=== PATIENT | female | born 1970 | race Two or more races ===

== ENCOUNTER 2022-07-18 15:30 | Emergency (ER) | payer SELFPAY ==
[2022-07-18 16:15] VITALS: BP 138/79; PULSE 93; RESP 18; TEMP 36.7; O2SAT 97; BMI 31.6
--- NOTE | 2022-07-18 17:47 | ED.NURSE ---
Per registration pt left because she did not want to wait any longer. Per registration pt signed refusal of services.
== END 2022-07-18 19:36 | disposition left against medical advice (07) ==
PROVIDERS: PCP Family Medicine
DX: Z53.21 Procedure and treatment not carried out due to patient leaving prior to being seen by health care provider (principal)

== ENCOUNTER 2022-12-23 19:48 | Emergency (ER) | payer SELFPAY ==
[2022-12-23 19:57] VITALS: BP 176/103; PULSE 92; RESP 18; TEMP 36.9; O2SAT 99
--- NOTE | 2022-12-23 20:18 | ED.GENADULT ---
HPI - General Adult General Time Seen by Provider: 20:10 Date Seen: 12/23/22 Chief complaint: Eye Problems Stated complaint: Pain in eyes since yesterday,Left ear/cheek pain Time Seen by Provider: 12/23/22 20:02 Source: patient and press reader Mode of arrival: ambulatory Limitations: no limitations History of Present Illness HPI narrative: 52-year-old female who comes in today with left eye pain. She notes that she has had intermittent pain and swelling of the left upper eyelid for the last couple of months, shows me a picture from mid October when she had some swelling. Current episode started yesterday. She denies blurry vision or double vision, says the eye feels better in the darkness. Took ibuprofen for this yesterday. She notes that she has a broken upper molar on the left and is wondering if that is contributing to her symptoms, although she denies current jaw pain. She also notes some pain in the left [employer] and forehead area. She reports that approximately 4 months ago she ?lost vision? in her left eye. This lasted for about a week and got better on its own. She was not seen for that episode. 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 She wears glasses. Related Data Home Medications Medication Instructions Recorded Confirmed insulin regular human 100 unit/mL 20 - 30 unit subcut BID 07/18/22 07/18/22 injection solution (Humulin R Regular U-100 Insulin) lisinopril 10 mg tablet 10 mg PO DAILY 07/18/22 07/18/22 Allergies Allergy/AdvReac Type Severity Reaction Status Date / Time No Known Drug Allergies Allergy Verified 07/18/22 16:18 Review of Systems Status of ROS: Reports: 10 or more systems reviewed and unremarkable except as noted in History and below Exam Narrative: Exam Narrative: General: well nourished , NAD Head: Atraumatic and normocephalic ENT: External ears and external nose are normal Eyes: Left eye mild swelling of the upper lid with tenderness but no redness or discoloration. No stye or hordeolum. Mild diffuse conjunctival injection with no corneal clouding or ciliary flush. Pupil is reactive, external ocular movements are intact without pain. Tetracaine placed in the eye with minimal improvement of symptoms. Fluorescein stain with no dendritic lesions or corneal abrasions. Mild left temporal tenderness. Neck: Full spontaneous range of motion of the neck Lungs: No respiratory distress Musculoskeletal: No tenderness or deformity Neurologic: No gross focal neurologic deficits Skin: No rashes Psych: Mood and affect are appropriate Const: Vital Signs, click to edit/add: Vital Signs - 24 hr 12/23/22 19:57 Temperature 98.5 F Pulse Rate [Left P ulse Oximeter] 92 Respiratory Rate 18 Blood Pressure [Ri ght Upper Arm] 176/103 H Pulse Oximetry 99 Oxygen Delivery Me thod Room Air Course Course Hospital Course: Patient seen examined, prior records reviewed. Patient presents with left eye, forehead, temporal pain since yesterday. On exam, there is mild swelling of the upper lid but no nodule on eyelid eversion to suggest stye or hordeolum. No foreign body or corneal abrasion noted on fluorescein staining. No ciliary flush, pupil is reactive with no corneal clouding, no nausea vomiting, minimal pain, and pain is better with lights turned off, acute angle closure glaucoma unlikely. Consider also migraine headache although this would not typically be expected to cause eyelid swelling. Temporal arteritis is possible but again, would not typically be expected to cause swelling of the eyelid. ESR is ordered. Reevaluation(s) Reevaluation #1: Sed rate is normal, clinically temporal arteries are unlikely and with normal sed rate, diagnosis is excluded. Unclear source of symptoms today. The upper lip on left slightly swollen but no redness, induration, or warmth to suggest retrobulbar or periorbital cellulitis, no pain with external ocular movements. Pupil is reactive with no corneal clouding, ciliary flush, or worsening with darker dim room, no severe headache, nausea, or vomiting, acute angle closure glaucoma is unlikely. No history of trauma and no abnormality on fluorescence staining to suggest corneal abrasion, viral conjunctivitis. Time: 21:36 Vital Signs Vital signs: Initial Vital Signs Temperature 98.5 F 12/23/22 19:57 Temperature Source Temporal Artery Scan 12/23/22 19:57 Pulse Rate 92 12/23/22 19:57 Pulse Rhythm 12/23/22 19:57 Respiratory Rate 18 12/23/22 19:57 Blood Pressure 176/103 H 12/23/22 19:57 Blood Pressure Mean 127 12/23/22 19:57 Blood Pressure Position Sitting 12/23/22 19:57 Pulse Oximetry 99 12/23/22 19:57 Oxygen Delivery Method 12/23/22 19:57 Vital Signs Temperature 98.5 F 12/23/22 19:57 Pulse Rate 92 12/23/22 19:57 Respiratory Rate 18 12/23/22 19:57 Blood Pressure 176/103 H 12/23/22 19:57 Pulse Oximetry 99 12/23/22 19:57 Oxygen Delivery Method 12/23/22 19:57 Temperature 98.5 F 12/23/22 19:57 Pulse Rate 92 12/23/22 19:57 Respiratory Rate 18 12/23/22 19:57 Blood Pressure 176/103 H 12/23/22 19:57 Pulse Oximetry 99 12/23/22 19:57 Oxygen Delivery Method 12/23/22 19:57 Medical Decision Making Medical Records Medical records reviewed: Yes I reviewed the patient's medical records Lab Data Lab results reviewed: Yes I reviewed the patient's lab results Labs: Lab Results 12/23/22 Range/Units 20:38 ESR 17 (2-20) mm/hr Discharge Plan Discharge Clinical Impression: Blepharitis, Photophobia of left eye Patient Disposition: Home, Self-Care Condition: Stable Instructions: Blepharitis (ED), Photophobia (ED) Additional Instructions: Take Tylenol and ibuprofen as needed for pain. Use cool packs on the eye 10-15 minutes at a time every 2-3 hours while awake. Use antibiotic ointment 3 times a day for the next 5 days. Follow-up in the eye clinic this week Activity Level: No Restrictions Discharge Diet: Regular Prescriptions: No Action lisinopril 10 mg tablet 10 mg PO DAILY Label Comments: TAKE ONE TABLET BY MOUTH ONCE DAILY Humulin R Regular U-100 Insuln 100 unit/mL solution 20 - 30 unit subcut BID Follow Up/Referrals: Rizwan Jolly DO [Referring] - Quinton Alvarez OD [Referring] - Baljinder Zarco [Referring] - Ryley Domingo DO [Referring] - Snehal Mendoza MD [Primary Care Provider] - Stand Alone Forms: MyHealth Info Instructions
[2022-12-23 21:31] LABS: Erythrocyte SedimentationRate* 17 mm/hr (2-20)
== END 2022-12-23 22:00 | disposition home or self-care (01) ==
PROVIDERS: Emergency Provider Family Medicine; PCP Family Medicine
DX: H01.006 Unspecified blepharitis left eye, unspecified eyelid (principal); H53.142 Visual discomfort, left eye
CPT/HCPCS: 36415; 85651; 99283; A9270

== ENCOUNTER 2024-05-21 16:35 | Outpatient (CLI) | payer BC, SELFPAY ==
--- OUTSIDE RECORDS SUMMARY | 2024-05-21 16:37 | XMS_ITS | Clinical Summary ---
Author Organization [facility] Address [place], [place] [address] Care Team Providers Care Relays Draftsperson Name Role Phone Darryl Richmond MD Unavailable Pcp, No Primary Care Provider Unavailabl e Allergies Active Allergy Reactions Criticality Noted Date Comments Ciprofloxacin Headache,Other - Ge cribe In Comment Field 12/08/2019 Leg pain Metformin Headache Low 03/05/2014 Medications Medication Sig Dispensed Refills Start Date End Date Status blood-glucose meter Dispense glucose meter, test strips and lancets covered by the patient insurance. Test 3 times per day. 1 Device 0 02/05/2013 Active Blood-Glucose Meter (CONTOUR NEXT USB METER) Dispense glucose meter, test strips and lancets covered by the patient insurance. Test 4 times per day. 1 Device prn 11/06/2013 Active Insulin Cullen, Disposable, (NOVOFINE 32) 32 x 1/4 Indications:Type II or unspecified type diabetes mellitus without mention of complication, not stated as uncontrolled For administering insulin at home. 100 Each 3 02/24/2015 Active blood sugar diagnostic (CONTOUR NEXT STRIPS) stripIndications:T ype II or unspecified type diabetes mellitus without mention of complication, not stated as uncontrolled Dispense test strips covered by the patient insurance. Test 4 times per day. 400 Each 2 02/24/2015 Active insulin nph-regular (NOVOLIN 70/30 U-100 INSULIN) 100 unit/mL (70-30) injection Inject 30-40 Units subcutaneous 2 times daily before meals. 10 mL 12/02/2019 Active metFORMIN (GLUCOPHAGE) 1,000 mg tabletIndications: Diabetes mellitus type 2, uncontrolled, with complications Take 1 tablet by mouth 2 times daily with meals. 60 tablet 1 06/30/2019 05/01/20 24 Discontinue d(*Med complete/Re gimen complete/[place] of care change) fluconazole (DIFLUCAN) 150 mg tabletIndications: Vaginal itching Take one tablet on day 1 and 1 tablet when finished with antibiotics. 1 tablet 07/17/2019 05/01/20 24 Discontinue d(*Med complete/Re gimen complete/[place] of care change) fluconazole (DIFLUCAN) 150 mg tabletIndications: Complicated UTI (urinary tract infection) Take 150mg x 1. May repeat in 2 wk if needed 2 tablet 12/02/2019 05/01/20 24 Discontinue d(*Med complete/Re gimen complete/[place] of care change) nirmatrelvir-riton avir 300-100mg (PAXLOVID, EUA,) tabletIndications: COVID-19 virus infection Take 2 nirmatrelvir 150 mg pink-oval tablets and 1 ritonavir 100 mg white-oval tablet together twice daily for 5 days. Date of Symptom Onset: 04/28/24; Cr 0.8 on 05/01/24 30 Tablet 05/01/2024 05/06/20 24 Active Problems Problem Noted Date Diagnosed Date Diabetic nephropathy 08/13/2014 Depression 08/13/2014 Delivery by elective section 04/10/2014 Status post repeat low transverse secti on 04/10/2014 History of delivery x2, currently pregn ant 09/18/2013 AMA (advanced maternal age) multigravida 35+ Supervision of other high-risk (V23.89) 09/12/2013 Overview: NEXT VISIT ALERTS :Needs work excuse note for every visit Did she start vitamin D? Needs UC q 4-6 wks. Last 10/27/13 LAST GROWTH: 10-27-13 @ 15w3d Level II ultrasound at 20 weeks gestation, Growth ultrasound with dopplers at 28 and 34 weeks gestation PRIMARY DIAGNOSIS: Poorly controlled Type 2 DM, AMA, previous x2, (LST) hx macrosomia. Kidney stones, pyelonephritis, hematuria/proteinuria, left renal atrophy TESTING PLANS: ZAINAB: [facility] 09/18/2013, op report from 1994, 2003 (LST X 2) scanned 09/30/13 REFERRING PHYSICIAN: Dr Snehal Mendoza [place] SPECIALISTS: PDC MANAGER OF TIRES SALES: CARE COORDINATION: CONSULTS: PROCEDURES: MEDS: Vitamin D plans: drawn 09/18/2013 = 14.1. 09/30/2013: Encouraged to warehouse order picker OTC, if cost prohibitive will waiting to start Vitamin D when she has insurance (and then needs prescription). Needs recheck 8 wks after starting Pertinent/Abnormal LABS: Blood type: O positive Last pap: 09/18/2013=NIL Hgb A1C 08/19/13 = 11.2 Needs UC q 4-6 wks. Last 10/27/13 24 hour urine collection 10/27/13 = 168. Repeat 3rd trimester ACTIVITY RESTRICTIONS: NURSING: Tdap vaccine: GIVE BETWEEN 27 AND 36 WEEKS Date given: Flu vaccine given: declined 09/18/2013 Non BMI 29.1 Optimal wt gain 15-25 lb Plan for Gestational Diabetes screening: NA, Type 2 GENETICS: Date: 09/30/13 Counselor: BEAR Plan: Normal [place] screen DELIVERY PLANS: Unsure-Planning/Not planning Tubal Ligation Is Medical assistance Repeat PLAN OF CARE: 10/27/13 JN Continue BS control with diabetes clinic, next visit 1/3 with OB check Check baseline results of 24 hour protein and patient will get an A1C and eye exam Consider baseline EKG and HELLP labs Return 4 weeks for Ob check and targeted US Repeat growth at about 28 weeks Start kick counts and testing twice weekly at 28 weeks PLAN: Return Appointments: OB Care - Every 4 weeks until 28 weeks., Every 2 weeks from 28 to 36 weeks., Every week from 36 weeks until delivery., Every 2 weeks. and Weekly UC next visit and every 4-6 weeks Ultrasound/Testing - Level II ultrasound at 20 weeks gestation, complete U/S at ~ 16 W due to markedly elevated blood sugars at conception and first trimester (HgA1C 11.7, then 8.8) - Growth ultrasound with dopplers at 28 and 34 weeks gestation - Initiate testing at 28 weeks gestation weekly, then twice weekly at 32 Labs -UC every 4-6 weeks -24 hour urine collection now and repeat 3rd trimester Meds - vitamins - Iron supplementation Screening Genetic counseling today, leaning toward [id number] NICU/Surgery consult Not at this time Delivery Plan repeat C/S (2 previous) Juany A Macon, MD .................... 09/30/2013 9:27 AM Renal calculus, left 08/25/2011 Hydronephrosis 08/25/2011 Pyelonephritis 08/25/2011 Pyuria 08/11/2011 HTN (hypertension) 02/09/2009 Overview: Updated by system to replace inactive record Pure hyperglyceridemia 02/09/2009 Adjustment disorder with depressed mood 02/10/20 09 Type II or unspecified type diabetes mellitus without mention of complication, not stated as uncontrolled 03/27/2007 Overview: and Diabetes Clinic: See's Dr Uriostegui at [facility], her last visit 11/06/13--- Never rescheduled after several attempts. Regular astigmatism 03/27/2007 Myopia 03/27/2007 Encounters Date Type Department Care Team Description 05/01/2024 3:45 PM CDT Orders Only [facility] [address] [place] [address] Lab, [place] [facility] 05/01/2024 2:45 PM CDT Telemedicine [facility] [address] [place] [address] Mary Fry MD Covid-19 Positive Result 05/01/2024 Travel 03/17/2024 8:00 AM CDT Ancillary Procedure [facility] [place] [facility] [address] [place] [address] 03/17/2024 Travel from Last 3 Months Immunizations Name Administration Dates Next Due Influenza, IIV3 (Age 6-35 mos) 09/04/2017 Influenza, IIV3 (Age >=3 years) 10/19/2008,09/05 Tdap 02/09/2014,11/05/2005 02/10/2024 Family History Medical History Relation Name Comments Diabetes Brother Good Health Daughter Heart Disease Father Hypertension Maternal Grandmother Hypertension Mother Diabetes Paternal Grandmother Good Health Son Relation Name Status Comments Brother Daughter Father (Age 60) [place] Maternal Grandmother Mother (Age 55) [place] Paternal Grandmother Son Social History Tobacco Use Types Packs/Day Years Used Date Smoking Tobacco: Former Cigarettes 0 07/05/1998 - 07/05/2000 Smokeless Tobacco: Never Tobacco Cessation:Counseling Given: Yes Alcohol Use Standard Drinks/Week Comments Not Currently 0 (1 standard drink = 0.6 oz pur e alcohol) PHQ-2 Answer Date Recorded PHQ-2 Score 2 06/30/2019 Social Connections Answer Date Recorded Frequency of Communication with Friends and Fami ly Not on file 05/01/2024 Financial Resource Strain Answer Date R ecorded Difficulty of Paying Living Expenses Not on file 11/01/2021 Difficulty of Paying Living Expenses Not on file 11/01/2021 Sex and Gender Information Value Date Recorded Sex Assigned at Not on file Gender Identity Not on file Sexual Orientation Not on file Obstetrics History Para Term AB IAB SAB Ectopic Multiple Livin g Live Births 5 2 2 0 2 0 2 0 0 2 2 Date Outcome GA Total Labor Labor/2nd/3rd Weight Sex Type Anes PTL Skyla A1 A5 Name Clin Comments:System Genera maury. Please review and update details. SAB SAB 995 Term 41w 0d 3.88 kg (8 lb 9 oz) M CS-Un spec Livin g Thuan Delivery Location:[facility] Comments:Failed IOL, P P infection 004 Term 39w 0d 4.25 kg (9 lb 6 oz) F CS-Un spec Livin g Mely Delivery Location:[facility] Comments:elective repe at Last Filed Vital Signs Vital Sign Reading Time Taken Comments Blood Pressure 150/84 12/02/2019 9:41 AM TUFTING CREELER Pulse 65 12/02/2019 9:41 AM TUFTING CREELER Temperature 36.8 ??C (98.2 ??F) 12/02/2019 9:41 AM CS T Respiratory Rate 16 04/13/2014 8:57 AM CDT Oxygen Saturation 100% 12/02/2019 9:41 AM TUFTING CREELER Inhaled Oxygen Concentration - - Weight 83.9 kg (185 lb) 12/02/2019 9:41 AM TUFTING CREELER Height 165.1 cm (5' 5) 02/17/2016 8:38 AM CDT Body Mass Index 30.79 02/17/2016 8:38 AM CDT Plan of Treatment Health Maintenance Due Date Last Done Comments Pneumococcal series for age 6-64 (1 of 2 - PCV) 1977 Hepatitis C screening for ag e 18-79 1989 Hepatitis B series for Diabe heri (1 of 3 - 19+ 3-dose series) 1990 Colonoscopy through age 75 2016 BMI (ht and wt on same day) for age 18+ 02/16/2017 02/17/2016 Mammogram for age 45-75 02/16/2017 02/17/2016, 02/22 Pap test for age 21-65 02/16/2019 6, 09/18/2013, 07/05/2007 Lipids for age 45-75 02/25/2020 02/24/2015, 08/13/2014, 02/05/2013, Additional history exists Depression screening for age 12+ 06/30/2020 06/30/2019, 06/30/2019, 02/17/2016, Additional history exists Zoster (shingles) series for age 50+ (1 of 2) 2021 COVID-19 vaccine series (2022- season) 2023 07/01/2021, 01/28/2021 Tetanus booster 02/10/2024 02/09/2014, 11/2005 (Completed outside of [facility]), 11/05/2005 Influenza for age 50-64 07/06/2024 10/19/2008, 09/05 HIV for age 15-65 Completed 08/19/2013 Tdap Completed 02/09/2014, 11/05/2005 Medical Devices Implanted Type Area Civil Engineering Designer Device Identifier Shelf Expiration Date Model / Serial / Lot Stent Prcflx [id number] Hydpls - [id number] Implanted:Qty: 1 on 08/31/2011 at [facility] Left: Ureter [facility] [id number] / / [id number] Stent Prcflx [id number] Hydpls - [id number] Implanted:Qty: 1 on 09/21/2011 at [facility] Left: Ureter [facility] 06/05/2014 [id number]# / / [id number] Explanted Type Area Civil Engineering Designer Device Identifier Shelf Expiration Date Model / Serial / Lot Stent Prcflx [id number] Hydpls - [id number] Implanted:Kp Alanis MD (Quantity not on file) Explanted:Qty: 1 on 08/31/2011 at [facility] Left: Ureter [facility] [id number] / / [id number] Procedures Procedure Name Priority Date/Time Associated Diagnosis Comments CREATININE,ISTAT Routine 05/01/2024 4:02 PM CDT COVID-19 virus infection ECHO TTE COMPLETE WO CONTRAST Routine 03/17/2024 9:33 AM CDT Palpitations XR FFDM MAMMO SCREENING BILATERAL SSP (IA) Routine 02/17/2016 9:12 AM CDT Visit for screening mammogram PROPERTY MANAGER THIN PREP PAP SCREEN IMAGED Routine 02/17/2016 9:03 AM CDT Screening for malignant neoplasm of cervix LIPID PANEL W REFLEX MEASURED LDL Routine 02/24/2015 2:27 PM CDT Pure hyperglyceridemia ANTI HIV 1/2 Routine 08/19/2013 10:07 AM CDT from Last 3 Months or Most Recently Relevant to Health Maintenance Results * (ABNORMAL) CREATININE,ISTAT (05/01/2024 4:02 PM CDT) CREATININE, POCT 0.80 0.57 - 1.11 mg/dL 05/01/2024 4:08 PM CDT [facility] Comment:Caution: Patients ta clarissa Hydroxyurea have falsely increased iStat Creatinine results. Verify creatinine results ordering a Creatinine (20958.2) eGFR 89(L) >90 mL/min/1.7 3m2 05/01/2024 4:08 PM CDT [facility] Comment:As of 2022, eG FR is calculated by the CKD-EPI creatinine equation without race adjustment. eGFR can be influenced by muscle mass, exercise, and diet. The reported eGFR is an estimation only and is only applicable if the renal function is stable. Blood BLOOD SPECIMEN / Unknown 05/01/2024 4:02 PM CDT 05/01/2024 4:07 PM CDT Mary Fry MD CHEMISTRY PEDRITO [facility] [place] [address], * ECHO TTE COMPLETE WO CONTRAST (03/17/2024 9:33 AM CDT) AORTIC VALVE MEAN PG 4 mmHg EJECTION FRACTION 59 % LVEDD 4.2 cm EJECTION FRACTION 55 - 60% Anatomical Region Laterality Modality Ultrasound 03/17/2024 8:21 AM CDT Narrative 03/17/2024 10:37 AM CDT ECHOCARDIOGRAM MARIE BOWDEN ?Accession#: ?? [id number] : ?1970 53 years Study Date: ?? 03/17/2024 8:21:36 AM Gender: F ? BP: ? 117/72 mmHg Height: 165.00 cm ? BSA: ?1.91 m? ? ? Weight: 84.00 kg ?Tech: ? MSR ?Referring MD: Site: ? [facility] Reading Location: Mobile OP Patient Location: Outpatient. Procedure: 2D, Color Doppler and Spectral Doppler. Indication for study: Palpitations Cardiac Rhythm: Regular.Study quality: Final Impressions: 1. Normal LV size, normal wall thickness, normal global systolic function with an estimated EF of 55 - 60%. 2. No significant valve disease detected. 3. No pericardial effusion. Chamber Sizes and Function Normal left ventricular size, normal wall thickness, normal global systolic function with an estimated EF of 55 - 60%. Left atrial size is normal. Right ventricular cavity size is normal, global systolic RV function is normal. The right atrium is normal. The pulmonary artery is of normal size and origin. The sinus of Valsalva is normal sized. The ascending aorta is normal sized. Valves, RV Pressures and Diastolic Function The aortic valve is trileaflet, no stenosis and trivial regurgitation. The mitral valve is normal in structure, trace mitral regurgitation. Normal diastolic function for age. The tricuspid valve is normal in structure. Tricuspid regurgitation is trace regurgitation. The pulmonic valve is not well visualized. No pulmonary regurgitation. Masses, Effusion, Shunts There is no pericardial effusion. The inferior vena cava is normal sized, respiratory size variation greater than 50%. No left to right shunting was detected by limited color flow Doppler interrogation of the interatrial septum. MEASUREMENTS AND CALCULATIONS 2-D Measurements and LV Function: LVID (d) 4.2 cm LV FS% (2D) ?? 38 % LVID (s) 2.6 cm LVOT diameter 2.2 cm IVS (d) ??0.9 cm HR ?69 bpm LVPW (d) 1.1 cm LA Vol index ??24 ml/m2 Ao Sinus 3.0 cm RV Max 4C (d) 3.0 cm Asc Ao ?? 3.3 cm Diastology: Mitral ?Tissue Doppler E Peak 0.8 m/s ??e', Septum ? 0.07 m/s A Peak 0.9 m/s ??e', Lateral ?0.10 m/s E/A ?0.9 ?E/e' Average ?? 9.80 DT ? 169 msec Aortic Valve: Vmax ? 1.3 m/s ??CHELSEA (V) ?? 2.53 cm? ? ? VTI ?0.30 m ?? CHELSEA (I) ?? 2.74 cm? ? ? LVOT V max 0.8 m/s ??Max PG ?7 mmHg LVOT VTI ?? 0.21 m ?? Mean PG ?? 4 mmHg SV ? 82 ml ?Dim Index 0.71 SV index ?? 43 ml/m? ? ? CO ?5.6 l/min ?CI ?2.9 l/min/m? ? ? Mitral Valve: MVA ?4.5 cm? ? ? MV P 1/2 49 msec Tricuspid Valve and estimated PA pressures: TAPSE 2.3 cm . This study was interpreted by an [facility] accredited facility. CC: HIM (med records) [facility]. ??Final ?? Procedure Note Manuel Robison MD - 03/17/2024 ECHOCARDIOGRAM MARIE BOWDEN : 1970 53 years Study Date: 03/17/2024 8:21:36 AM Gender: F BP: 117/72 mmHg Height: 165.00 cm BSA: 1.91 m? ? ? Weight: 84.00 kg Tech: MSR Referring MD: Site: [facility] Reading Location: Mobile OP Patient Location: Outpatient. Procedure: 2D, Color Doppler and Spectral Doppler. Indication for study: Palpitations Cardiac Rhythm: Regular.Study quality: Final Impressions: 1. Normal LV size, normal wall thickness, normal global systolic functionwith an estimated EF of 55 - 60%. 2. No significant valve disease detected. 3. No pericardial effusion. Chamber Sizes and Function Normal left ventricular size, normal wall thickness, normal globalsystolic function with an estimated EF of 55 - 60%. Left atrial size isnormal. Right ventricular cavity size is normal, global systolic RVfunction is normal. The right atrium is normal. The pulmonary artery is ofnormal size and origin. The sinus of Valsalva is normal sized. Theascending aorta is normal sized. Valves, RV Pressures and Diastolic Function The aortic valve is trileaflet, no stenosis and trivial regurgitation. Themitral valve is normal in structure, trace mitral regurgitation. Normaldiastolic function for age. The tricuspid valve is normal in structure.Tricuspid regurgitation is trace regurgitation. The pulmonic valve is notwell visualized. No pulmonary regurgitation. Masses, Effusion, Shunts There is no pericardial effusion. The inferior vena cava is normal sized,respiratory size variation greater than 50%. No left to right shunting wasdetected by limited color flow Doppler interrogation of the interatrialseptum. MEASUREMENTS AND CALCULATIONS 2-D Measurements and LV Function: LVID (d) 4.2 cm LV FS% (2D) 38 % LVID (s) 2.6 cm LVOT diameter 2.2 cm IVS (d) 0.9 cm HR 69 bpm LVPW (d) 1.1 cm LA Vol index 24 ml/m2 Ao Sinus 3.0 cm RV Max 4C (d) 3.0 cm Asc Ao 3.3 cm Diastology: Mitral Tissue Doppler E Peak 0.8 m/s e', Septum 0.07 m/s A Peak 0.9 m/s e', Lateral 0.10 m/s E/A 0.9 E/e' Average 9.80 DT 169 msec Aortic Valve: Vmax 1.3 m/s CHELSEA (V) 2.53 cm? ? ? VTI 0.30 m CHELSEA (I) 2.74 cm? ? ? LVOT V max 0.8 m/s Max PG 7 mmHg LVOT VTI 0.21 m Mean PG 4 mmHg SV 82 ml Dim Index 0.71 SV index 43 ml/m? ? ? CO 5.6 l/min CI 2.9 l/min/m? ? ? Mitral Valve: MVA 4.5 cm? ? ? MV P 1/2 49 msec Tricuspid Valve and estimated PA pressures: TAPSE 2.3 cm . This study was interpreted by an [facility] accredited facility. CC: [facility] ([facility]) [facility]. Final Elena Dalton TYRE RETREADER ECHO ORD * XR FFDM MAMMO SCREENING BILATERAL SSP (02/17/2016 9:12 AM CDT) Anatomical Region Laterality Modality BREASTS, Breast Left, Breast Right Bilateral Mammography Impressions 02/17/2016 12:16 PM CDT ??There is no radiographic evidence for malignancy. ??Recommend annual mammograms. A lay language report of this examination will be provided to the patient. MAMMOGRAM ASSESSMENT: ??ACR 2 Benign Narrative 02/17/2016 12:16 PM CDT XR FFDM MAMMO SCREENING BILATERAL SSP [G0202.6] CLINICAL HISTORY: ??This is an asymptomatic 45 y.o. patient. INDICATION FOR EXAM: Mammogram Screening. TECHNIQUE: CC & MLO views were obtained. ??This digital study was evaluated with the assistance of Computer-Aided Detection. COMPARISON FILMS: Yes 02/22/15 [facility] FINDINGS: ??Mammographically, the breast tissue has scattered fibroglandular densities. ??No suspicious masses or microcalcifications. ?? Benign appearing calcifications within both breasts. Snehal Mendoza MD MAMMO * PROPERTY MANAGER THIN PREP PAP SCREEN IMAGED [[id number]] (02/17/2016 9:03 AM CDT) PROPERTY MANAGER CYTOLOGY See Anatomic Pathology case 02/18/2016 10:00 AM CDT [facility] Specimen (specimen) (Cervical) Non-Blood / Unknown 02/17/2016 9:03 AM CDT 02/17/2016 9:03 AM CDT Snehal Mendoza MD PATHOLOGY/[facility]Y [facility] [address] [place] [address], * (ABNORMAL) LIPID PANEL W REFLEX MEASURED LDL (02/24/2015 2:27 PM CDT) Pathologist [facility] CHOLESTEROL,TOTAL 240(H) 100 - 199 mg/dL 02/24/2015 3:12 PM CDT [facility] TRIGLYCERIDES 298(H) <150 mg/dL 02/24/2015 3:12 PM CDT [facility] HDL CHOLESTEROL 56 >40 mg/dL 5 3:12 PM CDT [facility] NON-HDL CHOLESTEROL 184(H) <145 mg/dl 02/24/2015 3:12 PM CDT [facility] CHOL/HDL RATIO 4.29 <4.50 02/24/2015 3:12 PM CDT [facility] LDL CHOLESTEROL 124 <=130 mg/dL 02/24/2015 3:12 PM CDT [facility] PATIENT STATUS NON-FASTI NG 02/24/2015 3:12 PM CDT [facility] Blood specimen (specimen) BLOOD SPECIMEN / Unknown Venipuncture / Unknown 02/24/2015 2:27 PM CDT 02/24/2015 2:29 PM CDT Naina HUNT CHEMISTRY [facility] [address] [place] [address], * ANTI HIV 1/2 (08/19/2013 10:07 AM CDT) ANTI HIV 1/2 Non-reacti ve [facility] Blood specimen (specimen) BLOOD SPECIMEN / Unknown 08/19/2013 10:07 AM CDT 08/19/2013 9:53 AM CDT Snehal Mendoza MD SEND OUTS [facility] INTERNAL ZIP [id number] [place] [id number] from Last 3 Months or Most Recently Relevant to Health Maintenance Advance Directives * Full Code (Latest Code Status on File) Date Activated Date Inactivated Comments 04/10/2014 5:55 AM 04/13/2014 2:21 PM * Full Code Date Activated Date Inactivated Comments 09/21/2011 6:45 PM 09/21/2011 10:25 PM * Full Code Date Activated Date Inactivated Comments 09/15/2011 4:22 AM 09/16/2011 2:58 AM * Full Code Date Activated Date Inactivated Comments 08/31/2011 10:01 AM 08/31/2011 5:22 PM Care Teams Relays Draftsperson Relationship Specialty Start Date End Date Pcp, No . PCP - General 11/07/19 Darryl Richmond MD Urology Surgery - Urology 04/29/13
== END 2024-05-21 16:36 | disposition home or self-care (01) ==
PROVIDERS: PCP Family Medicine; Visit Provider Internal Medicine
DX: E78.5 Hyperlipidemia, unspecified (principal); I10 Essential (primary) hypertension; E11.9 Type 2 diabetes mellitus without complications; Z13.9 Encounter for screening, unspecified
CPT/HCPCS: 80053; 80061

== ENCOUNTER 2024-06-03 15:39 | Outpatient (CLI) | payer BC, SELFPAY ==
[2024-06-03 15:54] LABS: Clue Cells <20% Clue Cells Seen (None Seen); Trichomonas No Trichomonas Seen (None Seen); Yeast No Yeast Seen (None Seen)
--- OUTSIDE RECORDS SUMMARY | 2024-06-03 15:55 | XMS_ITS | Clinical Summary ---
Author Organization [facility] Address [place], [place] [address] Care Team Providers Care Spragger Name Role Phone Darryl Richmond MD Unavailable [...] day. 1 Device prn 11/06/2013 Active Insulin [place]man, Disposable, (NOVOFINE 32) 32 x 1/4 Indications:Type [...] daily before meals. 10 mL 12/02/2019 Active nirmatrelvir-riton avir 300-100mg (PAXLOVID, EUA,) tabletIndications: COVID-19 virus infection Take 2 nirmatrelvir 150 mg pink-oval tablets and 1 ritonavir 100 mg white-oval tablet together twice daily for 5 days. Date of Symptom Onset: 04/28/24; Cr 0.8 on 05/01/24 30 Tablet 05/01/2024 4 Active Problems Problem Noted Date Diagnosed Date [...] hematuria/proteinuria, left renal atrophy TESTING PLANS: ZAINAB: [facility] 09/18/2013, op report from 2003 (LST X 2) scanned 09/30/13 REFERRING PHYSICIAN: Dr Snehal Mendoza, [place] SPECIALISTS: PDC LOSS PREVENTION OFFICER: CARE COORDINATION: CONSULTS: PROCEDURES: MEDS: Vitamin D plans: drawn 09/18/2013 = 14.1. 09/30/2013: Encouraged to cotton picker OTC, if cost prohibitive will waiting [...] GENETICS: Date: 09/30/13 Counselor: BEAR Plan: Normal [place] screen DELIVERY PLANS: Unsure-Planning/Not planning Tubal Ligation Is Medical assistance Repeat PLAN OF CARE: 10/27/13 JN Continue BS control with diabetes clinic, next visit 11/07 with OB check Check baseline results of [...] supplementation Screening Genetic counseling today, leaning toward [id number] NICU/Surgery consult Not at this time Delivery Plan repeat C/S (2 previous) Juany Zamora MD .................... 09/30/2013 9:27 AM Renal calculus, left 08/25/2011 Hydronephrosis 08/25/2011 Pyelonephritis 08/25/2011 Pyuria 08/11/2011 HTN (hypertension) 02/09/2009 Overview: Updated by system to replace inactive record Pure hyperglyceridemia 02/09/2009 Adjustment disorder with depressed mood 02/10/20 09 Type II or unspecified type diabetes mellitus without mention of complication, not stated as uncontrolled 03/27/2007 Overview: and Diabetes Clinic: See's Dr Uriostegui at [facility], her last visit 11/06/13--- Never rescheduled after several attempts. Regular astigmatism 03/27/2007 Myopia 03/27/2007 Encounters Date Type Department Care Team Description 05/21/2024 Orders Only [facility] Scanner 1 scan: (1-Ord) EMILIO, XR SHOULDER LT MIN 2V, 05/21/2024 05/01/2024 3:45 PM CDT Orders Only [facility] [address] [place] [address] Lab, [place] Lab 05/01/2024 2:45 PM CDT Telemedicine [facility] [address] [place] [address] Mary Fry MD Covid-19 Positive Result 05/01/2024 Travel 03/17/2024 8:00 AM CDT Ancillary Procedure [facility] at [facility] & [address] [address] 03/17/2024 Travel from Last 3 Months Immunizations Name Administration Dates Next Due Influenza, IIV3 (Age 6-35 mos) 09/04/2017 Influenza, IIV3 (Age >=3 years) 10/19/2008,09/05 Tdap 02/09/2014,11/05/2005 02/10/2024 Family History Medical History Relation Name Comments Diabetes Brother Good Health Daughter Heart Disease Father Hypertension Maternal Grandmother Hypertension Mother Diabetes Paternal Grandmother Good Health Son Relation Name Status Comments Brother Daughter Father (Age 60) [place] Maternal Grandmother Mother (Age 55) [place] Paternal Grandmother Son Social History Tobacco Use [...] M CS-Un spec Livin g Thuan Delivery Location:[place] Comments:Failed IOL, P P infection 004 Term 39w 0d 4.25 kg (9 lb 6 oz) F CS-Un spec Livin g Mely Delivery Location:[place] Comments:elective repe at Last Filed Vital Signs Vital Sign Reading Time Taken Comments Blood Pressure 150/84 12/02/2019 9:41 AM BROKE HANDLER Pulse 65 12/02/2019 9:41 AM BROKE HANDLER Temperature 36.8 ??C (98.2 ??F) 12/02/2019 9:41 AM CS T Respiratory Rate 16 04/13/2014 8:57 AM CDT Oxygen Saturation 100% 12/02/2019 9:41 AM BROKE HANDLER Inhaled Oxygen Concentration - - Weight 83.9 kg (185 lb) 12/02/2019 9:41 AM BROKE HANDLER Height 165.1 cm (5' 5) 02/17/2016 8:38 [...] (1 of 2) 2021 COVID-19 vaccine series ( season) 2023 07/01/2021, 01/28/2021 Tetanus booster 02/10/2024 02/09/2014, 11/2005 (Completed outside of [facility]), 11/05/2005 Influenza for age 50-64 07/06/2024 10/19/2008, 09/05 HIV for age 15-65 Completed 08/19/2013 Tdap Completed 02/09/2014, 11/05/2005 Medical Devices Implanted Type Area Beautician Apprentice Device Identifier Shelf Expiration Date Model / Serial / Lot Stent Prcflx [id number] Hydpls - [id number] Implanted:Qty: 1 on 08/31/2011 at [facility] Left: Ureter [facility] [id number]# / / [id number] Stent Prcflx [id number] Hydpls - [id number] Implanted:Qty: 1 on 09/21/2011 at [facility] Left: Ureter [facility] 06/05/2014 [id number]# / / [id number] Explanted Type Area Beautician Apprentice Device Identifier Shelf Expiration Date Model / Serial / Lot Stent Prcflx [id number] Hydpls - [id number] Implanted:Kp Alanis MD (Quantity not on file) Explanted:Qty: 1 on 08/31/2011 at [facility] Left: Ureter [facility] [id number]# / / [id number] Procedures Procedure Name Priority Date/Time Associated Diagnosis Comments SCAN-RADIOLOGY REPORT 05/21/2024 12:00 AM CDT CREATININE,ISTAT Routine 05/01/2024 4:02 PM CDT COVID-19 virus infection ECHO TTE COMPLETE WO CONTRAST Routine 03/17/2024 9:33 AM CDT Palpitations XR FFDM MAMMO SCREENING BILATERAL SSP (IA) Routine 02/17/2016 9:12 AM CDT Visit for screening mammogram EGG FACTORY WORKER THIN PREP PAP SCREEN IMAGED Routine 02/17/2016 9:03 AM CDT Screening for malignant neoplasm of cervix LIPID PANEL W REFLEX MEASURED LDL Routine 02/24/2015 2:27 PM CDT Pure hyperglyceridemia ANTI HIV 1/2 Routine 08/19/2013 10:07 AM CDT from Last 3 Months or Most Recently Relevant to Health Maintenance Results * SCAN-RADIOLOGY REPORT (05/21/2024 12:00 AM CDT) Anatomical Region Laterality Modality Other Scanner OTHER * (ABNORMAL) CREATININE,ISTAT (05/01/2024 4:02 PM CDT) CREATININE, POCT 0.80 0.57 - 1.11 mg/dL 05/01/2024 4:08 PM CDT [facility] Comment:Caution: Patients ta clarissa Hydroxyurea have falsely increased iStat Creatinine results. Verify creatinine results ordering a Creatinine (56419.2) eGFR 89(L) >90 mL/min/1.7 3m2 05/01/2024 4:08 PM CDT [facility] Comment:As of 2022, eG FR is calculated by the CKD-EPI creatinine equation without race adjustment. eGFR can be influenced by muscle mass, exercise, and diet. The reported eGFR is an estimation only and is only applicable if the renal function is stable. Blood BLOOD SPECIMEN / Unknown 05/01/2024 4:02 PM CDT 05/01/2024 4:07 PM CDT Mary Fry MD CHEMISTRY [facility] [address] [place] [address], [place] [phone] * ECHO TTE COMPLETE WO CONTRAST (03/17/2024 9:33 AM CDT) AORTIC VALVE MEAN PG 4 mmHg EJECTION FRACTION 59 % LVEDD 4.2 cm EJECTION FRACTION 55 - 60% Anatomical Region Laterality Modality Ultrasound 03/17/2024 8:21 AM CDT Narrative 03/17/2024 10:37 AM CDT ECHOCARDIOGRAM MARIE BOWDEN ?Accession#: ?? [id number] : ?1970 53 years Study Date: ?? 03/17/2024 8:21:36 AM Gender: F ? BP: ? 117/72 mmHg Height: 165.00 cm ? BSA: ?1.91 m? ? ? Weight: 84.00 kg ?Tech: ? MSR ?Referring MD: Site: ? [facility] Reading Location: Mobile OP Patient Location: Outpatient. [...] . This study was interpreted by an [facility] accredited facility. CC: [facility]. ??Final ?? Procedure Note Manuel Robison MD - 03/17/2024 ECHOCARDIOGRAM MARIE BOWDEN : 1970 53 years Study Date: 03/17/2024 8:21:36 AM Gender: F BP: 117/72 mmHg Height: 165.00 cm BSA: 1.91 m? ? ? Weight: 84.00 kg Tech: KIMMY Referring MD: Site: [facility] Reading Location: Mobile OP Patient [...] interpreted by an [facility] accredited facility. CC: [facility] ([facility]. Final Elena Dalton AGRISCIENCE INSTRUCTOR ECHO ORD * XR FFDM MAMMO SCREENING [...] of Computer-Aided Detection. COMPARISON FILMS: Yes 02/22/15 [facility] FINDINGS: ??Mammographically, the breast tissue has scattered fibroglandular densities. ??No suspicious masses or microcalcifications. ?? Benign appearing calcifications within both breasts. Snehal Mendoza MD MAMMO * EGG FACTORY WORKER THIN PREP PAP SCREEN IMAGED [[id number]] (02/17/2016 9:03 AM CDT) EGG FACTORY WORKER CYTOLOGY See Anatomic Pathology case 02/18/2016 10:00 AM CDT [facility] Specimen (specimen) (Cervical) Non-Blood / Unknown 02/17/2016 9:03 AM CDT 02/17/2016 9:03 AM CDT Snehal Mendoza MD PATHOLOGY/CYTOLOGY [facility] [address] [place] [address], * (ABNORMAL) LIPID PANEL W REFLEX MEASURED LDL (02/24/2015 2:27 PM CDT) CHOLESTEROL,TOTAL 240(H) 100 - 199 mg/dL 02/24/2015 3:12 PM CDT [facility] TRIGLYCERIDES 298(H) <150 mg/dL 02/24/2015 3:12 PM CDT [facility] HDL CHOLESTEROL 56 >40 mg/dL 5 3:12 PM CDT [facility] NON-HDL CHOLESTEROL 184(H) <145 mg/dl 02/24/2015 3:12 PM CDT [facility] CHOL/HDL RATIO 4.29 <4.50 02/24/2015 3:12 PM CDT [facility] LDL CHOLESTEROL 124 <=130 mg/dL 02/24/2015 3:12 PM CDT [facility] PATIENT STATUS NON-FASTI NG 02/24/2015 3:12 PM CDT [facility] Blood specimen (specimen) BLOOD SPECIMEN / Unknown Venipuncture / Unknown 02/24/2015 2:27 PM CDT 02/24/2015 2:29 PM CDT Naina HUNT CHEMISTRY [facility] [address] [place] [address], * ANTI HIV 1/2 (08/19/2013 10:07 AM CDT) ANTI HIV 1/2 Non-reacti ve [facility] Blood specimen (specimen) BLOOD SPECIMEN / Unknown 08/19/2013 10:07 AM CDT 08/19/2013 9:53 AM CDT Snehal Mendoza MD SEND OUTS [facility] INTERNAL ZIP [phone] [place] [id number] from Last 3 Months or Most Recently [...] 10:01 AM 08/31/2011 5:22 PM Care Teams Spragger Relationship Specialty Start Date End Date Pcp, No . PCP - General 11/07/19 Darryl Richmond MD Urology Surgery - Urology 04/29/13
== END 2024-06-03 15:40 | disposition home or self-care (01) ==
PROVIDERS: PCP Internal Medicine; Visit Provider Obstetrics & Gynecology
DX: N89.8 Other specified noninflammatory disorders of vagina (principal); Z12.4 Encounter for screening for malignant neoplasm of cervix
CPT/HCPCS: 84443; 87210

== ENCOUNTER 2024-07-28 14:30 | Outpatient (RCR) | payer BC, SELFPAY ==
--- NOTE | 2024-06-18 12:51 | PT.OPEX ---
PT [place] [facility] Eval PT [facility] Outpatient Eval Start: 06/18/24 07:53 Freq: Status: Active Protocol: Document 06/18/24 07:53 ENM (Rec: 06/18/24 11:52 ENM [id number]) E-signed By Aure Chand, DPT Physical Therapy Outpatient Evaluation Insurance Information Recert Due Date 09/16/24 Insurance Name Medicaid,Blue Cross/Blue Shield Medical Diagnosis adhesive capsulitis of left shoulder primary osteoarthritis, left shoulder Treating Diagnosis left shoulder pain, right shoulder pain, decreased shoulder ROM, decreased shoulder strength Imaging Report Information Xray: mild spurring of the inferior glenohumeral joint with well-maintained joint spaces. Findings are consistent mild glenohumeral osteoarthritis. No fractures or acute osseous abnormalities Referring MD Sheikh Subjective Subjective Patient presents to PT for complaint of bilateral shoulder pains (L>R). The pains started in the left shoulder in August 2023 and the right shoulder 3 weeks ago . The shoulder seems to hurt all the time especially with sleep. She used to sleep on her side but has been trying to sleep on her back. She only uses ibuprofen which helps her sleep a little better. She endorses some numbness in her fingertips and pain in her thumb which started 4-6 months ago. MD thought her numbness was due to carpal tunnel. When it started: last year Describes it as: sharp Timing: stays the same but worse at night Location: L surrounding shoulder front to back, R same location but cracks as well Irritability: mod Severity: mod PMHx: diabetes Pain Comments at its worse: 7-8/10 on L, 3/ 10 R and stays at this amount easing: ibuprofen aggravating: cleaning, dressing Occupation Homemaker Objective Other/Pertinent Objective Cervical AROM: Flexion 35 extension 45 rot 59 B SB L 20 R 30 Shoulder AROM: Shoulder flexion: L 104 R 154 (passive L 110, R 162) Abduction: L 94 R 167 slight discomfort on R (passive L 80) IR: L lateral glute R T9 ( Passive L 50) ER: L mid skull R base of skull (Passive L 13) L all movements have pain Strength: Shoulder flexion: L 3+/5 R 4/5 Shoulder abduction: L 3+/5 R 4 /5 Shoulder IR0: L 4/5 R 4+/5 Shoulder ER0: L 4-/5 R 4/5 Palpation/joint mobility: Posterior glide of GHJ: decreased on L compared to R Inferior glide of GHJ: limited B no pain to palpation of shoulder musculature Special tests: randy compression -, does feel slight improvement in her numbness of the left hand with distraction cynthia - on R adam lennon - on R Assessment Assessment/Impression Patient is a 53 year old female presenting with chronic left shoulder and acute right shoulder pain. Their left shoulder pains have been present for over a year while her right shoulder pains started in the last couple of weeks. Pains are significantly impacting her sleep as well as functional ability. She has had minimal relief of symptoms with just use of ibuprofen. Upon assessment patients concordant pains brought on with shoulder ROM active and passive on both sides. She is not tender to palpation of shoulder musculature. Special testing for impingement is negative bilaterally. The left shoulder does have limitations in motion that are capsular in nature ABD(94 degs) <ER (13 degs) <IR ( lateral glute) which is consistent with frozen shoulder. Right shoulder pains are likely due to overuse from primarily relying on this side. Marie would greatly benefit from skilled PT to address impairments stated above in order to perform all functional mobility and self cares/ADLS without significant discomfort or difficulty. Primary Functional Limitations all movement of the left shoulder, sleeping Plan of Care Rehabilitation Potential Good Rehabilitation Potential Comments fair-good due to nature of condition as well as length of symptoms Physical Therapy Goals In 7-9 visits: 1. Patient will be IND with HEP and self management of symptoms 2. Patient will display an improvement in pain free left shoulder elevation to at least 120 degs for improved ability to perform self cares/ADLs 3. Patient will comfortably be able to lay on her right shoulder at night for improved sleep hygiene 4. Patient will improve global left shoulder strength to at least 4/5 for improved ability to perform household duties Coordination/Communication With Referral Source Treatment Plan/Direct Interventions Electrical Stimulation,Ice/ Cold/Vasopneumatic,Joint Mobilization,Manual Therapy, Neuromuscular Re-ed,Self-Care/ Home Management,Therapeutic Activities,Therapeutic Exercises Frequency/Duration 1x a week for 6 weeks, as needed with decreasing frequency 3-4 visits Patient Will Be Discharged From Therapy Completion of LTG(s), Independent w/HEP Evaluation Billing Untimed Code Treatment Minutes 33 Complexity Moderate Certification Information Initial Certification Date 06/18/24 Ending Certification Date 09/16/24 Provider Signature Required Yes Provider Signature Shows Agreement With POC & Medical Necessity Physician NPI Number Write NPI# Here Physician Comment/Change : Physician Signature & Date Requested Please Sign/Date Here
== END 2024-11-25 23:59 | disposition home or self-care (01) ==
PROVIDERS: PCP Internal Medicine; Visit Provider Orthopaedic Surgery
DX: M75.02 Adhesive capsulitis of left shoulder (principal); M19.012 Primary osteoarthritis, left shoulder; M25.512 Pain in left shoulder; M25.511 Pain in right shoulder; Z74.09 Other reduced mobility; R53.1 Weakness; Z51.89 Encounter for other specified aftercare
CPT/HCPCS: 97110; 97140; 97162; T1013

== ENCOUNTER 2024-07-29 11:32 | Outpatient (CLI) | payer BC, SELFPAY ==
--- OUTSIDE RECORDS SUMMARY | 2024-07-29 11:38 | XMS_ITS | Encounter Summary ---
Author Organization [facility] Address [address] [place] [phone] Care Team Providers Care Community Engagement Leader Name Role Phone Elsewhere, Pcp Primary Care Provider Unavailabl e Reason for Visit * Outpatient (Routine) - Closed Specialty Diagnoses / Procedures Referred By Zev t Referred To Contact Anesthesiology Diagnoses Hemorrhage Vitreous Right (HCC) Rere Nair M.D., Ph.D. [address] [place] [phone] [facility] Referral ID Status Reason Start Date Expiration Date Visits Re quested Visits Authorized [id number] Closed 06/25/2024 12/25/2025 1 1 Encounter Details Date Type Department Care Team (Latest Contact Info) Description 07/04/2024 3:00 PM CDT Comprehensive Visit Preoperative Evaluation Center in [place], [place] [address] [place] [phone] Rere Nair M.D., Ph.D. [address] [place] [phone] Mega Triplett, NILA, C.N.P., M.S. 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 No 07/04/2024 Exercise Vital Sign Answer Date Recorde d On average, how many days pe r week do you engage in moderate to strenuous exercise (like a brisk walk)? 5 days 07/04/2024 On average, how many minutes do you engage in exercise at this level? 20 min 07/04/2024 Hunger Vital Sign Answer Date Recorded Within the past 12 months, y ou worried that your food would run out before you got the money to buy more. Never true 07/04/20 Within the past 12 months, t he food you bought just didn't last and you didn't have money to get more. Never true 07/04/2024 PRAPARE - Transportation Answer Date Re corded In the past 12 months, has l ack of transportation kept you from medical appointments or from getting medications? No 06/07 In the past 12 months, has l ack of transportation kept you from meetings, work, or from getting things needed for daily living? No 07/04/2024 Nutrition Answer Date Recorded On average, how many serving s of fruits and vegetables do you eat per day (serving size is equal to 1 cup or approximately the size of a tennis ball)? 3-5 07/04/2024 Dental Answer Date Recorded Dental: Regular Dentist No 07/04/20 Employment Answer Date Recorded Employment status Unemployed/not in e paid workforce but seeking employment 07/04/2024 Housing Stability Answer Date Recorded What is your living situation today? I have a [facility] place to live 07/04/2024 Sex and Gender Information Value Date Recorded Sex Assigned at Female 07/04/2024 1:43 PM CDT Gender Identity Female 07/04/2024 1:43 PM CDT Sexual Orientation Straight 07/04/2024 1: 43 PM CDT documented as of this encounter Last Filed Vital Signs Vital Sign Reading Time Taken Comments Blood Pressure 164/99 07/04/2024 2:42 PM CDT Pulse 76 07/04/2024 2:42 PM CDT Temperature 36.3 ??C (97.3 ??F) 07/04/2024 2:42 PM CD T Respiratory Rate - - Oxygen Saturation 99% 07/04/2024 2:42 PM CDT Inhaled Oxygen Concentration - - Weight 83.7 kg (184 lb 8.4 oz) 07/04/2024 2:42 P M CDT Height 164.4 cm (5' 4.72) 07/04/2024 2:42 PM CD T Body Mass Index 30.97 07/04/2024 2:42 PM CDT documented in this encounter H&P Notes * Mega Triplett APRN, C.N.P., M.S. - 07/04/2024 3:00 PM CDT REASON FOR VISIT: Preoperative Medical Evaluation REFERRING PHYSICIAN: Rere Nair M.D., Ph.D. 07/08/2024: VITRECTOMY - PARS PLANA 25 GAUGE; Rere Nair M.D., Ph.D. Surgery Specific Risk Classification: Low Risk SUBJECTIVE HISTORY OF PRESENT ILLNESS Marie Maxwell is a 53 y.o. female who is here for preanesthetic medical examination prior to the planned procedure as listed above. REVIEW OF SYSTEMS Eyes: Positive for visual problems. - Glasses. All other systems reviewed and are negative. Cardiac Risk Scoring: Ch Cardiac Score: 0.09% Revised Cardiac Risk Index 1 Point - Low Risk of Cardiac Event (0.9%) DASI Calculations Flowsheet Row Comprehensive Visit from 07/04/2024 in Preoperative Evaluation Center in [place], [place] DASI Total Score 36.7 Estimated V02 Peak 25.38 Estimated MET Level 7.25 OBJECTIVE OBJECTIVE PHYSICAL EXAMINATION General/Constitutional Constitutional Assessment: Normal General State of Health: Healthy appearing Airway (HEENT) Mallampati: IV TM Distance: >3 FB Neck ROM: Full Mouth Opening: > 3 cm Upper Lip Bite Test: I Dental Assessment: Dentition intact Cardiovascular Rhythm: Regular Rate: Normal Cardiovascular Assessment: Normal Pulmonary Pulmonary Assessment: Clear Neurological Neurologic Assessment: Alert and oriented X 3 Musculoskeletal MSK Assessment: Normal Gait: Normal Ambulate with: None Psychiatric Psychiatric Assessment: Calm Dermatology Skin Assessment: normal ASSESSMENT / PLAN Anesthesia: Difficult IV insertion, no ultrasound IV history. PONV history. Patient denies all other personal/family previous anesthesia related complications. Please see allergy history. Airway Hx: No chart review airway. Lab: - 06/25/2024 A1c 11.8%. - 05/01/2024 CR 0.80/GFR 89. ECG: - 09/21/2011 normal sinus rhythm 78 bpm, no comparison ECG. ECHO: - 03/17/2024 2D echo final impression: 1. Normal LV size, normal wall thickness, normal global systolic function with an estimated EF of 55 - 60%. 2. No significant valve disease detected. 3. No pericardial effusion. #1 Preanesthetic Medical Exam #2 Hemorrhage Vitreous Right (HCC) #3 Anesthesia Complication Personal History Kind hearted 53-year-old woman here for [facility] visit. Active individual. Able to care for self at home. No ambulation aids. Mets 7.25. Denies cardiopulmonary symptoms both at rest and with exertional activity. On exam today denies any fever/chills, cough, nasal drainage, or sinus pressure. 1 Red Bull daily without withdrawal headaches. 4-6 alcoholic drinks weekly without withdrawal history. Light social less than 1 year smoking history, with no chronic bronchitis/pneumonia. Please see planned procedure and HPI above. Please hold all ibuprofen, aspirin, supplements, minerals, and vitamins 1 week prior to surgery. #4 Hypertension Essential Primary Conservatively managed with no acute cardiopulmonary/angina symptoms on exam. 05/01/2024 CR 0.80/GFR 89. Hypertension history, reported lisinopril 10 mg daily stopped 6 months ago by primary care provider. No BP monitoring since. Hypertensive on exam. Ongoing shortness of breath after 10+ minutes of heavy exertion. Counseled to follow-up with primary care provider following recovery surgery for hypertension re-evaluation. No cardiac ischemia/infarction/surgical/arrhythmic history. No thromboembolism history. Pulse 76. BP 164/99. No home BP monitoring. Manual BP 152/86. Please see cardiac testing above. Continue hypertension surveillance/treatment per primary care provider. #5 Hyperlipidemia Treated with no TIA/stroke history. Atorvastatin headaches. No recent LFTs/liver imaging. Currentlyawaiting primary care re-evaluation for other lipid-lowering agent. Continue hyperlipidemia surveillance/treatment per primary care provider. 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 06/25/2024 A1c 11.8%. (No recent glucose/A1c comparison) Morning blood glucose typically 200. No polydipsia/polyuria/polyphagia/confusion. No low blood sugar history. Counseled to follow-up with primary care provider as soon as possible for hypoglycemia re-evaluation. #9 Personal History Of Infectious And Parasitic Disease (COVID-19) COVID history 04/28/2024, Paxlovid treated. Fully recovered without residual affects. #10 Depression Conservatively managed with no concern. Continue depression surveillance/treatment per primary careprovider. #11 Obesity Body Mass Index 30-39.9 Adult BMI 30 0.97. PATIENT EDUCATION: Reviewed Instructions To Get Ready for Your Surgery or Procedure: [facility] [id number] rev 0124. Written and verbal instructions given on medication management beforesurgery. Reviewed instructions on avoiding aspirin, ibuprofen-containing medications, and supplements one week before surgery. Patient may take acetaminophen as needed for pain. RECOMMENDATIONS: Patient medically optimized for planned procedure: Yes, pending surgical team's evaluation of 06/25/2024 A1c 11.8% and uncontrolled hypertension with no recent primary care provider re-evaluation. Per surgical team's risk assessment will follow there recommendation. Surgical team notified 07/04/2024. Patient aware of plan. Phone number confirmed. Patient will wait surgical team's recommendation. Reviewed with Dr. Roy, agrees with plan and no further testing. Further Recommendations: None I spent 63 minutes face to face and non-face to face caring for the patient today. documented in this encounter Plan of Treatment Upcoming Encounters Date Type Department Care Team (Late st Contact Info) Description 08/01/2024 1:30 PM CDT Ancillary Procedure Department of Ophthalmology in [place], [place] [address] [place] [address] Rere Nair M.D., Ph.D. [address] [place] [phone] 08/01/2024 2:00 PM CDT Procedure visit Department of Ophthalmology in [place], [place] [address] [place] [phone] Rere Nair M.D., Ph.D. [address] [place] [phone] 08/01/2024 2:15 PM CDT Ancillary Procedure Department of Ophthalmology in [address] [phone] Rere Nair M.D., Ph.D. [address] [place] [phone] 08/01/2024 2:45 PM CDT Ancillary Procedure Department of Ophthalmology in [address] [phone] Rere Nair M.D., Ph.D. [address] [place] [phone] 08/01/2024 3:00 PM CDT Office Visit Department of Ophthalmology in [address] [phone] Rere Nair M.D., Ph.D. 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
--- OUTSIDE RECORDS SUMMARY | 2024-07-29 11:38 | XMS_ITS | Encounter Summary ---
Author Organization [facility] Address [address] [place] [phone] Care Team Providers Care Production Service Manager Name Role Phone Elsewhere, Pcp Primary Care Provider Unavailabl e Encounter Details Date Type Department Care Team (Latest Contact Info) Description 07/04/2024 Clinical Communication Department of Ophthalmology in [place], [place] [address] [place] [address] Rere Nair M.D., Ph.D. [address] [place] [phone] Social History Tobacco Use Types Packs/Day Years Used Date Smoking Tobacco: Never Smokeless Tobacco: Never Alcohol Use Standard Drinks/Week Comments Yes 4 (1 standard drink = 0.6 oz pur e alcohol) [facility] Utilities Answer Date Recorded In the past 12 months has e electric, gas, oil, or water company threatened to [...] money to buy more. Never true 07/04/20 24 Within the past 12 months, t he [...] your living situation today? [facility] 07/04/2024 Sex and Gender Information Value Date Recorded Sex Assigned at Female 07/04/2024 1:43 PM CDT Gender Identity Female 07/04/2024 1:43 PM CDT Sexual Orientation Straight 07/04/2024 1: 43 PM CDT documented as of this encounter Plan of Treatment Upcoming Encounters Date Type Department Care Team (Late st Contact Info) Description 08/01/2024 1:30 PM CDT Ancillary Procedure Department of Ophthalmology in [place], [place] [address] [place] [phone] Rere Nair M.D., Ph.D. [address] [place] [phone] 08/01/2024 2:00 PM CDT Procedure visit Department of Ophthalmology in [place], [place] [address] [place] [phone] Rere Nair M.D., Ph.D. [address] [place] [phone] 08/01/2024 2:15 PM CDT Ancillary Procedure Department of Ophthalmology in [place], [place] [address] [place] [phone] Rere Nair M.D., Ph.D. [address] [place] [phone] 08/01/2024 2:45 PM CDT Ancillary Procedure Department of Ophthalmology in [place], [place] [address] [place] [phone] Rere Nair M.D., Ph.D. [address] [place] [phone] 08/01/2024 3:00 PM CDT Office Visit Department of Ophthalmology in [place], [place] [address] [place] [phone] Rere Nair M.D., Ph.D. [address] [place] [phone] documented as of this encounter Visit Diagnoses Not on filedocumented in this encounter Care Teams Production Service Manager Relationship Specialty Start Date End Date Elsewhere, Pcp PCP - General Internal Medicine 07/03/24 documented as of this encounter
--- OUTSIDE RECORDS SUMMARY | 2024-07-29 11:38 | XMS_ITS | Encounter Summary ---
Author Organization [facility] Address [address] [place] [id number] Care Team Providers Care Signal Technician Name Role Phone Elsewhere, Pcp Primary Care Provider Unavailabl e Reason for Visit * Auth/Cert (Routine) Specialty Diagnoses / Procedures Referred By Zev t Referred To Contact Diagnoses Hemorrhage Vitreous Right (HCC) Hemorrhage Vitreous Right (HCC) [H43.11] Procedures [place] VITRECTOMY [facility] PARS PLANA 25G pars plana vitrectomy, endolaser, air, possible gas and all other associated procedures right eye Rere Nair M.D., Ph.D. [address] [place] [address] Referral ID Status Reason Start Date Expiration Date Visits Re quested Visits Authorized [id number] 1 1 Encounter Details Date Type Department Care Team (Latest Contact Info) Description 07/08/2024 10:08 AM CDT - 07/08/2024 1:33 PM T Hospital Encounter [facility] [address] [place] [phone] Rere Nair M.D., Ph.D. [address] [place] [phone] Discharge Disposition: Home or Self Care Social History Tobacco Use Types Packs/Day Years Used Date Smoking Tobacco: Never Smokeless Tobacco: Never Alcohol Use Standard Drinks/Week Comments Yes 6 (1 standard drink = 0.6 oz pur e alcohol) [facility] Utilities Answer Date Recorded In the [...] Answer Date Recorded Employment status Unemployed/not in th e paid workforce but seeking employment 07/04/2024 Housing Stability Answer Date Recorded What is your living situation today? I have a [facility] place to live 07/04/2024 Sex and Gender Information Value Date Recorded Sex Assigned at Female 07/04/2024 1:43 PM CDT Gender Identity Female 07/04/2024 1:43 PM CDT Sexual Orientation Straight 07/04/2024 1: 43 PM CDT documented as of this encounter Last Filed Vital Signs Vital Sign Reading Time Taken Comments Blood Pressure 137/63 07/08/2024 1:32 PM CDT Pulse 76 07/08/2024 12:59 PM CDT Temperature 36.8 ??C (98.3 ??F) 07/08/2024 12:59 PM C DT Respiratory Rate 17 07/08/2024 12:59 PM CDT Oxygen Saturation 98% 07/08/2024 12:59 PM CDT Inhaled Oxygen Concentration - - Weight 84.2 kg (185 lb 10 oz) 07/08/2024 10:33 A M CDT Height 166 cm (5' 5.35) 07/08/2024 10:33 AM CDT Body Mass Index 30.56 07/08/2024 10:33 AM CDT documented in this encounter Discharge Instructions * Discharge Instructions* Nico Mckeon M.D., Ph.D. - 07/08/2024 12:50 PM CDT Instructions after eye surgery Starting 07/08/2024 Keep your eye patch on overnight. It will be removed tomorrow in clinic during your clinic visit. You do NOT need to use any eye drops until after your follow- up visit tomorrow. Positioning: If the bubble of gas, air, or silicone oil was placed in the eye during surgery, a specific head position will be required. This position should be maintained for as much of the time as possible. The bubble will hold the retina in position as the retina heals. Very important: If you have a gas air bubble, do not fly in an airplane, do not go to high altitude, scuba dive, or undergo elective surgery (nitrous oxide). YOUR POSITION: Do not rest or sleep on your back. Activities: If you have been instructed to maintain a certain head position, it is important to comply. During the first week, do not engage in vigorous activity. Lifting is restricted to 10 lb. Avoid areas that are andrés or dirty. Avoid sexual activity for 1 week. When washing hair, avoid getting the tap water into the operated eye. Pain: Pain will be worse at about 12-24 hours after the operation as the anesthetic wears off. After this period, the pain will decrease over the next several days. Take pain medications as recommended by your doctor. Call your doctor if the pain should get worse. Most cases do not require a prescriptions for pain medications yet this depends upon the type of surgery. In general, we recommend fckm-svc-[id number] pain medications such as Extra Strength Tylenol. Check with your doctor before using Aspirin, Motrin, Advil, or Aleve. Shield or glasses: For the first week after surgery, you must wear a pair of glasses (any type) or hard shield at all times (awake or sleeping) to make sure that the eye is not accidentally bumped. Wear the shield when sleeping or napping. It is okay to stop wearing this protection after 10 days. It is not necessary to wear a soft patch under the hard shield unless otherwise instructed. Other: There may be a mild, bloody discharge or mattering from the eye. Your eye may also remain red for up to 4-6 weeks after surgery. This is normal and should decrease slowly over time. If these conditions worsen, please contact the office for evaluation. Any questions or concerns please call [phone] (Business hours) [phone] (Evenings and weekends, ask for the Financial Services Agent substation electrician) documented in this encounter Medications at Time of Discharge Medication Sig Dispensed Refills Start Date End Date blood sugar diagnostic strips Dispense test strips covered by the patient insurance. Test 4 times per day. 02/24/2015 insulin NPH (NovoLIN N NPH U-100 Insulin) 100 unit/mL vial 06/25/2020 Levemir FlexPen 100 unit/mL (3 mL) pen 05/05/2024 prednisoLONE acetate (Pred Forte) 1 % ophthalmic suspension Administer 1 drop into the right eye 4 (four) times a day for 7 days, THEN 1 drop 3 (three) times a day for 7 days, THEN 1 drop 2 (two) times a day for 7 days, THEN 1 drop daily for 7 days. 10 mL 07/09/2024 08/06/2024 ofloxacin (Ocuflox) 0.3 % ophthalmic solution Administer 1 drop into the right eye 4 (four) times a day for 7 days. 5 mL 07/09/2024 07/21/2024 documented as of this encounter Nursing Notes * Elana Tyler RAllen. - 07/08/2024 11:53 AM CDT Air bubble to right eye. Green wristband placed prior to OR dismissal. Positioning discussed with patient. documented in this encounter OR Notes * Op Note - Rere Nair M.D., Ph.D. - 07/08/2024 11:20 AM CDT Pre-op Diagnosis Hemorrhage Vitreous Right (HCC) Post-op Diagnosis Hemorrhage Vitreous Right (HCC) Welding Machine Tender A payroll administrative assistant actively participated and was necessary for one or more of the following: opening, exposure and visualization, maintaining hemostasis, wound closure resulting in its safe and expeditious completion. Findings During the procedure, the following was observed: - Altered surgical field secondary to distorted anatomy These findings added significant complexity to the procedure because there was a localized tractional retinal detachment nasally that needed to be repaired with taut/adherent hyaloid from proliferative diabetic retinopathy. Complications None Operative Note Narrative Pre-operative Diagnosis: High risk Proliferative diabetic retinopathy, right eye Non-clearing vitreous hemorrhage, right eye Tractional retinal detachment (macula sparing), right eye Post-operative Diagnosis: High risk Proliferative diabetic retinopathy, right eye Non-clearing vitreous hemorrhage, right eye Tractional retinal detachment (macula sparing), right eye Procedure: Pars plana vitrectomy, right eye Air-fluid exchange, right eye Endolaser, right eye Avastin (1.25mg/0.05cc), right eye Surgical Narrative: The patient was brought to the operating room and a time-out was performed. The correct eye and procedure were verified. Light sedation with monitored anesthesia was administered by anesthesia team. A 50:50 block of lidocaine 1% and marcaine 0.5% was administered into the retrobulbar space of righteye. ?? The patient was prepped and draped in the usual sterile fashion. A Jaclyn eyelid speculum was placed in the operative eye. Attention was then turned to the vitrectomy. ?? Using a 25-gauge valved trocar cannula system, sclerotomies were created in a beveled approach through the pars plana in the inferotemporal, superotemporal, and superonasal quadrants through the parsplana 4.0 mm posterior to the limbus. The infusion line was inserted directly into the inferotemporal cannula and turned on after confirming appropriate placement under direct visualization. ?? The microvitrector and light pipe were introduced into the eye and the wide angle visualization system engaged. There was an inferior vitreous hemorrhage with traction around the nerve and several areas of neovascularization elsewhere throughout the mid-periphery. There was profound ischemia in periphery. A complete vitrectomy was performed with a short vitreous skirt peripherally 360 degrees with care to release tension around localized nasal tractional retinal detachment immediately nasal to optic nerve. The hyaloid was carefully removed off this area and the retina settled nicely with no remaining subretinal fluid at end of case. ?? Endolaser was applied 360 degrees from arcades to ora and around areas of pathology, including neovascularization elsewhere. There was a mild Epiretinal Membrane in superior macula but decision was made to not peel this at this time. A complete air-fluid exchange was performed. ?? The residual fluid was passively removed with the soft tip cannula at the nerve. ?? The superonasal, superotemporal, and inferotemporal trocars were removed and the sclerotomies were closed with 7-0 vicryl. Avastin (1.25mg/0.05cc) was injected 4.0 mm posterior to the limbus on a 30Gneedle. ?? The intraocular pressure was appropriate (15mmHg) by palpation, and all wounds were airtight. A drop of Atropine and maxitrol ointment were placed in the eye. The eye was patched and shielded. The patient tolerated the procedure well and there were no complications. ?? The patient was taken to the recovery room in good condition where post- operative instructions weregiven. Rere Nair M.D., Ph.D. documented in this encounter Plan of Treatment Upcoming Encounters Date Type Department Care Team (Late st Contact Info) Description 08/01/2024 1:30 PM CDT Ancillary Procedure Department of Ophthalmology in [place], [place] [address] [place] [phone] Rere Nair M.D., Ph.D. [address] [place] [phone] 08/01/2024 2:00 PM CDT Procedure visit Department of Ophthalmology in [place], [place] [address] [place] [phone] Rere Nair M.D., Ph.D. [address] [place] [phone] 08/01/2024 2:15 PM CDT Ancillary Procedure Department of Ophthalmology in [place], [place] [address] [place] [phone] Rere Nair M.D., Ph.D. [address] [place] [phone] 08/01/2024 2:45 PM CDT Ancillary Procedure Department of Ophthalmology in [place], [place] [address] [place] [phone] Rere Nair M.D., Ph.D. [address] [place] [phone] 08/01/2024 3:00 PM CDT Office Visit Department of Ophthalmology in [address] [phone] Rere Nair M.D., Ph.D. [address] [place] [phone] documented as of this encounter Procedures Procedure Name Priority Date/Time Associated Diagnosis Comments VITRECTOMY - PARS PLANA 25 GAUGE 07/08/2024 10:48 AM CDT Hemorrhage Vitreous Right (HCC) Case Notes Research Fellow @ 1012. TPU 11. GLUCOSE POCT, B Routine 07/08/2024 10:42 AM CDT documented in this encounter Results * (ABNORMAL) Glucose, POCT (07/08/2024 10:42 AM CDT) Glucose, POCT, B 146(H) 70 - 140 mg/dL 07/08/2024 10:56 AM CDT PCLX Comment: Glucose results collected from venous catheters may be falsely elevated. Site Venline 07/08/2024 10:56 AM CDT PCLX Blood 07/08/2024 10:4 2 AM CDT 07/08/2024 10:56 AM CDT Unknown Provider LAB POCT ORDERABLES- MANUAL POC [facility] [address] [place] [address], [facility] PCLX [facility] [place] POC [address] [place] [address] documented in this encounter Visit Diagnoses Diagnosis Hemorrhage Vitreous Right (HCC)- [facility] Use Of Insulin Active (HCC) documented in this encounter Admitting Diagnoses Diagnosis Hemorrhage Vitreous Right (HCC) documented in this encounter Administered Medications Inactive Administered Medications - up to 3 most recent administrations Medication Order MAR Action Action Date Dose Rate Site acetaminophen injection 1,000 mg 1,000 mg, intravenous, at 400 mL/hr, Administer over 15 Minutes, Once as needed, other, If patient has not received in previous 6 hours, Starting on Sun07/08/24 at 1301, For 1 dose, PACU & Post-Op, Oral unless RASS less than -1 or nausea/vomiting. Do not use if given in last 6 hours, Restriction Criteria (Pharmacy will review and approve if criteria met): Unable to take or tolerate medications administered via the enteral route or orally (not just NPO) acetaminophen tablet 1,000 mg (TylenoL) 1,000 mg, oral, Once as needed, other, If patient has not received in the previous 6 hours, Starting on Sun07/08/24 at 1301, For 1 dose, PACU & Post-Op, Oral unless RASS less than -1 or nausea/vomiting. Do not use if given in last 6 hours chlorhexidine 0.12 % mouthwash 15 mL (Peridex) 15 mL, swish & spit, Once as needed, Chlorhexidine mouthwash (Peridex) should be given if patient did not complete oral care, if completion is greater than 4 hours prior to surgery or procedure start time and they do not have the opportunity to brush their teeth now (or at this time)., Starting on Sun07/08/24 at 1025, For 1 dose, Pre-Op, Instruct patient to swish entire content of Chlorhexidine 0.12% mouthwash (PERIDEX) 15 mL cup for 30 seconds, then spit, swish & spit. If patient is at risk for aspiration, apply Chlorhexidine 0.12% mouthwash to a swab and gently swab the patient's teeth and gums. Ensure swab is not oversaturated. cyclopentolate 1 % ophthalmic solution 1 drop (CyclogyL) 1 drop, right eye, Every 5 min, First dose on 07/08/24 at 1045, For 3 doses, Pre-Op, In operative eye. Given 07/08/2024 10:54 AM CDT 1 drop Given 07/08/2024 10:45 AM CDT 1 drop Given 07/08/2024 10:37 AM CDT 1 drop phenylephrine 2.5 % ophthalmic solution 1 drop (Mydfrin) 1 drop, right eye, Every 5 min, First dose on Sun07/08/24 at 1045, For 3 doses, Pre-Op, In operative eye. Given 07/08/2024 10:54 AM CDT 1 drop Given 07/08/2024 10:45 AM CDT 1 drop Given 07/08/2024 10:37 AM CDT 1 drop sodium chloride 0.9 % injection 10 mL 10 mL, intravenous, As needed, line care, Starting on Sun07/08/24 at 1025, Pre-Op, Peripheral Intravenous Catheter and Rapid Infusion Catheter, prior to blood sampling, post blood transfusion or post blood sampling sodium chloride 0.9 % injection 3 mL 3 mL, intravenous, As needed, line care, Starting on 07/08/24 at 1025, Pre-Op, Prior to and following infusion and between multiple consecutive infusions: sodium chloride 0.9 % injection sodium chloride 0.9 % injection 3 mL 3 mL, intravenous, Every 12 hours scheduled, First dose on Sun07/08/24 at 2100, Pre-Op, Peripheral Intravenous Catheter and Rapid Infusion Catheter, when no infusion to maintain patency tropicamide 1 % ophthalmic solution 1 drop (Mydriacyl) 1 drop, right eye, Every 5 min, First dose on Sun07/08/24 at 1045, For 3 doses, Pre-Op, In operative eye. Given 07/08/2024 10:54 AM CDT 1 drop Given 07/08/2024 10:45 AM CDT 1 drop Given 07/08/2024 10:37 AM CDT 1 drop documented in this encounter Active and Recently Administered Medications Times are shown in CDT. Scheduled Medication Order 07/06/2024 07/07/2024 07/08/2024 bevacizumab intraocular injection 1.25 mg (Avastin) (COMPLETED) 1.25 mg, intravitreal, Once, On Sun07/08/24 at 1215, For 1 dose, Intra-Op, Inject into right eye. 1215 (Due)1243 (Give n - Provider: Rere Nair M.D., Ph.D.) cyclopentolate 1 % ophthalmic solution 1 drop (CyclogyL) (COMPLETED) 1 drop, right eye, Every 5 min, First dose on Sun07/08/24 at 1045, For 3 doses, Pre-Op, In operative eye. 1037 (Given - Provid er: Malia Bravo R.N.)1045 (Given - Provider: Malia Bravo R.N.)1054 (Given - Provider: Malia Bravo R.N.) phenylephrine 2.5 % ophthalmic solution 1 drop (Mydfrin) (COMPLETED) 1 drop, right eye, Every 5 min, First dose on Sun07/08/24 at 1045, For 3 doses, Pre-Op, In operative eye. 1037 (Given - Provid er: Malia Bravo R.N.)1045 (Given - Provider: Malia Bravo R.N.)1054 (Given - Provider: Malia Bravo R.N.) sodium chloride 0.9 % injection 3 mL 3 mL, intravenous, Every 12 hours scheduled, First dose on Sun07/08/24 at 2100, Pre-Op, Peripheral Intravenous Catheter and Rapid Infusion Catheter, when no infusion to maintain patency tropicamide 1 % ophthalmic solution 1 drop (Mydriacyl) (COMPLETED) 1 drop, right eye, Every 5 min, First dose on Sun07/08/24 at 1045, For 3 doses, Pre-Op, In operative eye. 1037 (Given - Provid er: Malia Bravo R.N.)1045 (Given - Provider: Malia Bravo R.N.)1054 (Given - Provider: Malia Bravo R.N.) PRN Medication Order 07/06/2024 07/07/2024 07/08/2024 acetaminophen injection 1,000 mg(Linked Group 1) 1,000 mg, intravenous, at 400 mL/hr, Administer over 15 Minutes, Once as needed, other, If patient has not received in previous 6 hours, Starting on Sun07/08/24 at 1301, For 1 dose, PACU & Post-Op, Oral unless RASS less than -1 or nausea/vomiting. Do not use if given in last 6 hours, Restriction Criteria (Pharmacy will review and approve if criteria met): Unable to take or tolerate medications administered via the enteral route or orally (not just NPO) acetaminophen tablet 1,000 mg (TylenoL)(Linked Group 1) 1,000 mg, oral, Once as needed, other, If patient has not received in the previous 6 hours, Starting on Sun07/08/24 at 1301, For 1 dose, PACU & Post-Op, Oral unless RASS less than -1 or nausea/vomiting. Do not use if given in last 6 hours atropine 1 % ophthalmic solution (Isopto Atropine) (CANCELED) As needed, Starting on Sun07/08/24 at 1246, Intra-Op 1246 (Given - Provid er: Nico Mckeon M.D., Ph.D.) balanced salt solution ophthalmic irrigation (BSS) (CANCELED) As needed, Starting on Sun07/08/24 at 1138, Intra-Op 1138 (Given - Provid er: Rere Nair M.D., Ph.D. - Comment: Used throughout procedure.) balanced salt solution plus ophthalmic irrigation (BSS Plus) (CANCELED) As needed, Starting on Sun07/08/24 at 1137, Intra-Op 1137 (Given - Provid er: Rere Nair M.D., Ph.D. - Comment: Used throughout procedure.) BUPivacaine 0.5 % (5 mg/mL) injection (Marcaine) (CANCELED) As needed, Starting on Sun07/08/24 at 1248, Intra-Op 1248 (Given - Provid er: Rere Nair M.D., Ph.D.) ceFAZolin subconjunctival 25 mg (Ancef) (COMPLETED) 25 mg, subconjunctival, Once in surgery, OR use only, Starting on Sun07/08/24 at 1109, For 1 dose, Intra-Op, Inject into right eye. SUBCONJUNCTIVAL Use Only. Single dose vial, discard remainder. Bilateral administration requires two separate vials. 1248 (Given - Provid er: Rere Nair M.D., Ph.D.) chlorhexidine 0.12 % mouthwash 15 mL (Peridex) 15 mL, swish & spit, Once as needed, Chlorhexidine mouthwash (Peridex) should be given if patient did not complete oral care, if completion is greater than 4 hours prior to surgery or procedure start time and they do not have the opportunity to brush their teeth now (or at this time)., Starting on Sun07/08/24 at 1025, For 1 dose, Pre-Op, Instruct patient to swish entire content of Chlorhexidine 0.12% mouthwash (PERIDEX) 15 mL cup for 30 seconds, then spit, swish & spit. If patient is at risk for aspiration, apply Chlorhexidine 0.12% mouthwash to a swab and gently swab the patient's teeth and gums. Ensure swab is not oversaturated. dexAMETHasone injection 2 mg (Decadron) (COMPLETED) 2 mg, subconjunctival, Once in surgery, OR use only, Starting on Sun07/08/24 at 1109, For 1 dose, Intra-Op, Inject into right eye. 1244 (Given - Provid er: Rere Nair M.D., Ph.D.) fentaNYL injection 25 mcg (Sublimaze) 25 mcg, intravenous, Every 2 min PRN, moderate pain or score 4-6 of 10, severe pain or score 7-10 of 10, Starting on Sun07/08/24 at 1301, PACU & Post-Op, Up to maximum total dose of 200 mcg granisetron (PF) injection 1 mg (KytriL) 1 mg, intravenous, Once as needed, nausea, vomiting, Starting on Sun07/08/24 at 1301, For 1 dose, PACU & Post-Op, If patient does not respond to ondansetron or haloperidol. (Order of antiemetic administration - ondansetron then haloperidol or droperidol then granisetron) hypromellose intraocular solution (Ocucoat) (CANCELED) As needed, Starting on Sun07/08/24 at 1138, Intra-Op 1138 (Given - Provid er: Rere Nair M.D., Ph.D. - Comment: Used throughout procedure.) insulin aspart U-100 injection 0-8 Units (NovoLOG FlexPen) 0-8 Units, subcutaneous, Every 2 hour PRN, high blood sugar, Nurse to determine and administer dose, Starting on Sun07/08/24 at 1301, For 2 doses, PACU & Post-Op, First dose at least 2 hours after any previous subcutaneous insulin. For glucose less than or equal to 70 mg/dL - initiate treatment of hypoglycemia. , Insulin Aspart: Correction Scale Insulin (For Diabetes Mellitus diagnosis), 71 - 139: 0 units, 140 - 179: 2 units, 180 - 219: 4 units, 220 - 259: 6 units, 260 - 299: 8 units, Greater than or equal to 300: Call anesthesia mdkbcutbm-XUInzxjtybz-dvxqjuoxhjod e human recombinant (Ophthalmic Block Solution #4) 9.3 mg-3.5 mg-11.2 Units/mL 20.1 mL (COMPLETED) 20.1 mL, ophthalmic, Once in surgery, OR use only, Starting on Sun07/08/24 at 1109, For 1 dose, Intra-Op 1109 (Given - Provid er: Nico Mckeon M.D., Ph.D.) neomycin-polymyxin B-dexameth ophthalmic ointment (Maxitrol) (CANCELED) As needed, Starting on Sun07/08/24 at 1244, Intra-Op 1244 (Given - Provid er: Rere Nair M.D., Ph.D.) oxyCODONE IR tablet 5 mg (Roxicodone) 5 mg, oral, Once as needed, For pain 4 or greater, Starting on Sun07/08/24 at 1301, For 1 dose, PACU & Post-Op sodium chloride 0.9 % injection 10 mL 10 mL, intravenous, As needed, line care, Starting on Sun07/08/24 at 1025, Pre-Op, Peripheral Intravenous Catheter and Rapid Infusion Catheter, prior to blood sampling, post blood transfusion or post blood sampling sodium chloride 0.9 % injection 3 mL 3 mL, intravenous, As needed, line care, Starting on Sun07/08/24 at 1025, Pre-Op, Prior to and following infusion and between multiple consecutive infusions: sodium chloride 0.9 % injection Linked Groups Order Group 1: acetaminophen tablet 1,000 mg (TylenoL)Jump to med 1,000 mg, oral, Once as needed, other, If patient has not received in the previous 6 hours, Starting on Sun07/08/24 at 1301, For 1 dose, PACU & Post-Op, Oral unless RASS less than -1 or nausea/vomiting. Do not use if given in last 6 hours Or acetaminophen injection 1,000 mgJump to med 1,000 mg, intravenous, at 400 mL/hr, Administer over 15 Minutes, Once as needed, other, If patient has not received in previous 6 hours, Starting on Sun07/08/24 at 1301, For 1 dose, PACU & Post-Op, Oral unless RASS less than -1 or nausea/vomiting. Do not use if given in last 6 hours, Restriction Criteria (Pharmacy will review and approve if criteria met): Unable to take or tolerate medications administered via the enteral route or orally (not just NPO) documented in this encounter Care Teams Signal Technician Relationship Specialty Start Date End Date Elsewhere, Pcp PCP - General Internal Medicine 07/03/24 documented as of this encounter
--- OUTSIDE RECORDS SUMMARY | 2024-07-29 11:38 | XMS_ITS ---
Author Organization [facility] Address [address] [place] [address] Care Team Providers Care Emblem Maker Name Role Phone Unavailable Unavailable Unavailable Surgery Details Not on file Complications Check Surgery Details section. Procedure Estimated Blood Loss Check Surgery Details section. Procedure Findings Check Surgery Details section. Procedure Specimens Taken Check Surgery Details section.
--- OUTSIDE RECORDS SUMMARY | 2024-07-29 11:38 | XMS_ITS | Encounter Summary ---
Author Organization [facility] Address [address] [place] [address] Care Team Providers Care Blueprint Reader Name Role Phone Elsewhere, Pcp Primary Care Provider Unavailabl e Encounter Details Date Type Department Care Team (Late st Contact Info) Description 07/08/2024 10:55 AM CDT Ancillary Procedure Department of General Surgery Social History Tobacco Use Types Packs/Day Years Used Date Smoking Tobacco: Never Smokeless Tobacco: Never Alcohol Use Standard Drinks/Week Comments Yes 6 (1 standard drink = 0.6 oz pur e alcohol) [facility] Utilities Answer Date Recorded In the past 12 months has th e electric, gas, oil, or water [employer] threatened to shut off services in your [...] Date Recorded Dental: Regular Dentist No 07/04/20 24 Employment Answer Date Recorded Employment status Unemployed/not in th e paid workforce but seeking employment 07/04/2024 Housing Stability Answer Date Recorded What is your living situation today? I have a [facility] place to live 07/04/2024 Sex and [...] CDT Ancillary Procedure Department of Ophthalmology in [place], [place] [address] [place] [phone] Rere Nair M.D., Ph.D. [address] [place] [phone] 08/01/2024 2:00 PM CDT Procedure visit Department of Ophthalmology in [place], [place] [address] [place] [phone] Rere Nair M.D., Ph.D. [address] [place] [phone] 08/01/2024 2:15 PM CDT Ancillary Procedure Department of Ophthalmology in [place], [place] [address] [place] [phone] Rere Nair M.D., Ph.D. [address] [place] [phone] 08/01/2024 2:45 PM CDT Ancillary Procedure Department of Ophthalmology in [place], [place] [address] [place] [phone] eRre Nair M.D., Ph.D. [address] [place] [phone] 08/01/2024 3:00 PM CDT Office Visit Department of Ophthalmology in [place], [place] [address] [place] [phone] Rere Nair M.D., Ph.D. [address] [place] [phone] documented as of this encounter Procedures Procedure Name Priority Date/Time Associated Diagnosis Comments SURGERY IMAGE EXAM Routine 07/08/2024 10 :55 AM CDT documented in this encounter Results * Surgery Image Exam-Surgery Image Exam (07/08/2024 10:55 AM CDT) 07/08/2024 10:5 1 AM CDT Narrative [facility]IMS - 07/08/2024 1:26 PM CDT This order has been created and auto-finalized to support the import of images acquired without order. The clinical documentation to support these images can be found on the encounter that produced images. Provider Not In System IMG NON RAD IMAGI NG PROCEDURES [facility] NA documented in this encounter Visit Diagnoses Not on filedocumented in this encounter Care Teams Blueprint Reader Relationship Specialty Start Date End Date Elsewhere, Pcp PCP - General Internal Medicine 07/03/24 documented as of this encounter
--- OUTSIDE RECORDS SUMMARY | 2024-07-29 11:38 | XMS_ITS | Encounter Summary ---
Author Organization [facility] Address [address] [place] [phone] Care Team Providers Care Fruit And Vegetable Packer Name Role Phone Elsewhere, Pcp Primary Care Provider Unavailabl e Reason for Visit * Outpatient (Routine) - Closed Specialty Diagnoses / Procedures Referred By Zev t Referred To Contact Ophthalmology Rere Nair M.D., Ph.D. [address] [place] [phone] [facility] Referral ID Status Reason Start Date Expiration Date Visits Re quested Visits Authorized [id number] Closed 06/25/2024 12/25/2025 1 1 Encounter Details Date Type Department Care Team (Latest Contact Info) Description 07/21/2024 8:00 AM CDT Office Visit Department of Ophthalmology in [place], [place] [address] [place] [phone] Rere Nair M.D., Ph.D. 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 I have a [facility] place to live 07/04/2024 Sex and Gender Information Value Date Recorded Sex Assigned at Female 07/04/2024 1:43 PM CDT Gender Identity Female 07/04/2024 1:43 PM CDT Sexual Orientation Straight 07/04/2024 1: 43 PM CDT documented as of this encounter Consult Notes * Rere Nair M.D., Ph.D. - 07/21/2024 8:00 AM CDT Images from the original note were not included. Retina Post-operative Note, [facility] at [place], [place] Post-operative week #1: Status post pars plana vitrectomy, endolaser, air, Avastin right eye 07/08/24 Doing well, mild ache over right eye. Vision improving Brief Ocular History: Vitreous Hemorrhage RIGHT eye Proliferative Diabetic retinopathy BOTH eyes -status post pars plana vitrectomy, endolaser, air, Avastin right eye 07/08/24 (Korey/Mike/Benny) Ocular Meds: Prednisolone 3x per day Glaucoma meds: none Ophthalmic Imaging: See prior clinic notes for descriptions of previous imaging See [facility] ophthalmology module for exam information. 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 Retina flat. Intraocular pressure acceptable. Start tapering drop regimen, as below Discussed with patient retinal detachment precautions Instructions are provided below Plan: 07/21/2024 Continue tapering prednisolone 3-2-1 weekly, per table Positioning: None No heavy lifting (>20 lbs) or bending at the waist for 2 weeks total Return precautions discussed: Call for decreased vision, increased distortion, increased pain, new floaters, or flashing lights Follow-up: 1-2 weeks (POM#1) for dilated fundus exam both eyes and Optos fluorescein angiography both eyes transit left eye, OCT macula both eyes Spectralis Letters to: Dr. Mike Nair MD, PhD Environmental Assistant Heat Treat Technician Vitreoretinal Surgery & Diseases [facility], Department of Ophthalmology [address] [place] [phone] documented in this encounter Miscellaneous Notes * Assessment & Plan Note - Rere Nair M.D., Ph.D. 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 Retina flat. Intraocular pressure acceptable. Start tapering drop regimen, as below Discussed with patient retinal detachment precautions Instructions are provided below documented in this encounter Plan of Treatment Upcoming Encounters Date Type Department Care Team (Late st Contact Info) Description 08/01/2024 1:30 PM CDT Ancillary Procedure Department of Ophthalmology in [place], [place] [address] [place] [phone] Rere Nair M.D., Ph.D. [address] [place] [phone] 08/01/2024 2:00 PM CDT Procedure visit Department of Ophthalmology in [place], [place] [address] [place] [phone] Rere Nair M.D., Ph.D. [address] [place] [phone] 08/01/2024 2:15 PM CDT Ancillary Procedure Department of Ophthalmology in [place], [place] [address] [place] [phone] Rere Nair M.D., Ph.D. [address] [place] [phone] 08/01/2024 2:45 PM CDT Ancillary Procedure Department of Ophthalmology in [address] [phone] Rere Nair M.D., Ph.D. [address] [place] [phone] 08/01/2024 3:00 PM CDT Office Visit Department of Ophthalmology in [address] [phone] Rere Nair M.D., Ph.D. 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
--- OUTSIDE RECORDS SUMMARY | 2024-07-29 11:38 | XMS_ITS | Referral Summary ---
Author Organization [facility] Address [address] [place] [address] Care Team Providers Care Beer Runner Name Role Phone Elsewhere, Pcp Primary Care Provider Unavailabl e Source Comments Patient records contain information from all sites at [facility]. For routine questions regarding patient records, call [phone] during business hours, M-F 8:00 AM - 5:00 PM Central Time. Record requests for emergency care only can be directed to [phone] at any time.[facility] Encounters Date Type Department Care Team Description 07/21/2024 8:00 AM CDT Office Visit Department of Ophthalmology in [place], [place] [address] [place] [phone] Rere Nair M.D., Ph.D. 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 Hemorrhage Vitreous Right (HCC) (Primary Dx) 07/08/2024 10:55 AM CDT Ancillary Procedure Department of General Surgery 07/08/2024 10:58 AM CDT Anesthesia Event [facility] [address] [place] [address] [place] [phone] Makayla Jones APRN, ANITA, D.N.P. Eduin Kay M.D. 07/08/2024 12:11 PM CDT - 07/08/2024 2:26 PM CDT Surgery [facility] OR [address] [place] [phone] Rere Nair M.D., Ph.D. 25G pars plana vitrectomy, endolaser, air bubble, avastin injection to right eye. 07/08/2024 10:08 AM CDT - 07/08/2024 1:33 PM CDT Hospital Encounter [facility] OR [address] [place] [phone] Rere Nair M.D., Ph.D. Discharge Disposition: Home or Self Care 07/04/2024 Clinical Communication Department of Ophthalmology in [place], [place] [address] [place] [phone] Rere Nair M.D., Ph.D. 07/04/2024 3:00 PM CDT Comprehensive Visit Preoperative Evaluation Center in [place], [place] [address] [place] [phone] Rere Nair M.D., Ph.D. Mega Triplett APRN, C.N.P., M.S. 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 Hemorrhage Vitreous Right (HCC) Discharge Disposition: Home or Self Care 06/25/2024 Orders Only Department of Ophthalmology in [place], [place] [address] [place] [phone] Enid Sawant C.O.A. Hemorrhage Vitreous Right (HCC) (Primary Dx) 06/25/2024 12:05 AM CDT Ancillary Procedure Department of Ophthalmology 06/25/2024 Ancillary Procedure Department of Ophthalmology 06/25/2024 10:00 AM CDT Ancillary Procedure Department of Ophthalmology in [place], [place] [address] [place] [phone] Rere Nair M.D., Ph.D. Hemorrhage Vitreous Right (HCC) 06/25/2024 11:00 AM CDT Comprehensive Visit Department of Ophthalmology in [place], [place] [address] [place] [phone] Rere Nair M.D., Ph.D. Hemorrhage Vitreous Right (HCC) (Primary Dx) 06/24/2024 3:20 PM CDT Ancillary Procedure Department of Ophthalmology 06/24/2024 Ancillary Procedure Department of Ophthalmology 06/24/2024 1:30 PM CDT Ancillary Procedure Department of Ophthalmology in [place], [place] [address] [place] [phone] Rere Nair M.D., Ph.D. Hemorrhage Vitreous Right (HCC) 06/24/2024 2:15 PM CDT Ancillary Procedure Department of Ophthalmology in [place], [place] [address] [place] [phone] Rere Nair M.D., Ph.D. 06/24/2024 2:00 PM CDT Procedure visit Department of Ophthalmology in [place], [place] [address] [place] [phone] Rere Nair M.D., Ph.Wilmer Dey CNoemi Hemorrhage Vitreous Right (HCC) 06/12/2024 Clinical Communication Department of Ophthalmology in [place], [place] [address] [place] [address] Rere Nair M.D., Ph.D. 06/11/2024 Orders Only Department of Ophthalmology in [place], [place] [address] [place] [address] Rere Nair M.D., Ph.D. Hemorrhage Vitreous Right (HCC) (Primary Dx) 06/11/2024 Clinical Communication Department of Ophthalmology in [place], [place] [address] [place] [address] Rere Nair M.D., Ph.D. 06/09/2024 Clinical Communication Department of Ophthalmology in [place], [place] [address] [place] [address] Melanie Adams O.D. 06/05/2024 [facility] Orders [facility] [address] [phone] Bob Velasco M.D. Hemorrhage Vitreous Right (HCC) (Primary Dx) 04/30/2024 [facility] [address] [phone] Bob Velasco M.D. Hemorrhage Vitreous Right (HCC) (Primary Dx) from Last 3 Months Allergies No known active allergies Medications Medication Sig Dispensed Refills Start Date End Date Status insulin NPH (NovoLIN N NPH U-100 Insulin) 100 unit/mL vial 06/25/2020 Active Levemir FlexPen 100 unit/mL (3 mL) pen 05/05/2024 Active blood sugar diagnostic strips Dispense test strips covered by the patient insurance. Test 4 times per day. 02/24/2015 Active prednisoLONE acetate (Pred Forte) 1 % ophthalmic suspension Administer 1 drop into the right eye 4 (four) times a day for 7 days, THEN 1 drop 3 (three) times a day for 7 days, THEN 1 drop 2 (two) times a day for 7 days, THEN 1 drop daily for 7 days. 10 mL 07/09/2024 08/06/2024 Active polyvinyl alcohol (Artificial Tears, polyvin alc,) 1.4 % ophthalmic solution Administer 1 drop into both eyes 4 (four) times a day as needed for dry eyes. 15 mL 11 07/09/2024 Active ofloxacin (Ocuflox) 0.3 % ophthalmic solution Administer 1 drop into the right eye 4 (four) times a day for 7 days. 5 mL 07/09/2024 07/21/2024 Additional Information Patient not taking.Reported on 07/09/2024 Hospital, Clinic, or Other Facility Administered Medication Ordered Dose Route Frequency Start Date End Date Status sodium chloride 0.9 % injection 3 mL 3 mL IV As needed 06/11/2024 Active fluorescein 100 mg/mL (10 %) injection 500 mg 500 mg IV Once in imaging 07/09/2024 Active sodium chloride 0.9 % injection 3 mL 3 mL IV As needed 07/09/2024 Active Active Problems Problem Noted Date Diagnosed Date Obesity Body Mass Index 30-39.9 Adult 07/04/2024 Anesthesia Complication Personal History 024 Personal History Of Infectio us And Parasitic Disease (COVID-19) 07/04/2024 Hyperlipidemia 06/25/2024 Finishing Department Supervisor Use Of Insulin Active 06/25/2024 Hemorrhage Vitreous Right 06/20/2024 Assessment & Plan (07/09/2024 8:40 AM CDT): Exam appropriate for post-op day #1 status post pars plana vitrectomy, endolaser, Avastin, air right eye. Retina flat. Intraocular pressure acceptable. Start drop regimen, as below Discussed with patient air, endophthalmitis, and retinal detachment precautions Instructions are provided below, and handout was given to patient Assessment & Plan (06/20/2024 2:20 PM CDT): Seen at [facility]. Has had 4 Vabysmo injections without clearance, last on 04/25/2024. Diabetes Mellitus Type 2 Wit h Proliferative Diabetic Retinopathy Without Macular Edema Bilateral 06/20/2024 Assessment & Plan (07/21/2024 8:18 AM CDT): Exam appropriate for post-op week #1.5 status post pars plana vitrectomy, endolaser, Avastin, air right eye. Retina flat. Intraocular pressure acceptable. 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 Utilities Answer Date Recorded In the [...] your living situation today? I [facility] a [facility] to live 07/04/2024 Sex and Gender Information Value Date Recorded Sex Assigned at Female 07/04/2024 1:43 PM CDT Gender Identity Female 07/04/2024 1:43 PM CDT Sexual Orientation Straight 07/04/2024 1: 43 PM CDT Last Filed Vital Signs Vital Sign Reading [...] Mass Index 30.56 07/08/2024 10:33 AM CDT Plan of Treatment Upcoming Encounters Date Type Department Care Team (Late st Contact Info) Description 08/01/2024 1:30 PM CDT Ancillary Procedure Department of Ophthalmology in [place], [place] [address] [place] [phone] Rere Nair M.D., Ph.D. [address] [place] [phone] 08/01/2024 2:00 PM CDT Procedure visit Department of Ophthalmology in [place], [place] [address] [place] [phone] Rere Nair M.D., Ph.D. [address] [place] [phone] 08/01/2024 2:15 PM CDT Ancillary Procedure Department of Ophthalmology in [place], [place] [address] [place] [phone] Rere Nair M.D., Ph.D. [address] [place] [phone] 08/01/2024 2:45 PM CDT Ancillary Procedure Department of Ophthalmology in [place], [place] [address] [place] [phone] Rere Nair M.D., Ph.D. [address] [place] [phone] 08/01/2024 3:00 PM CDT Office Visit Department of Ophthalmology in [place], [place] [address] [place] [address] Rere Nair M.D., Ph.D. [address] [place] [phone] Procedures Procedure Name Priority Date/Time Associated Diagnosis Comments SURGERY IMAGE EXAM Routine 07/08/2024 10 :55 AM CDT VITRECTOMY - PARS PLANA 25 GAUGE 07/08/2024 10:48 AM CDT Hemorrhage Vitreous Right (HCC) Case Notes [employer] @ 1012. TPU 11. GLUCOSE POCT, B Routine 07/08/2024 10:42 AM CDT HEMOGLOBIN A1C, B Routine 06/25/2024 11: 49 AM CDT Hemorrhage Vitreous Right (HCC) B SCAN - OD - RIGHT EYE Routine 06/25/2024 10:57 AM CDT Hemorrhage Vitreous Right (HCC) OPHTHALMOLOGY IMAGE EXAM Routine 06/25/2024 12:05 AM CDT OPHTHALMOLOGY IMAGE EXAM Routine 06/25/2024 12:00 AM CDT OPTICAL COHERENCE TOMOGRAPHY - MACULA/RETINA - OU - BOTH EYES Routine 06/24/2024 5:13 PM CDT Hemorrhage Vitreous Right (HCC) ANGIOGRAPHY - OU - BOTH EYES Routine 06/24/2024 3:49 PM CDT Hemorrhage Vitreous Right (HCC) OPHTHALMOLOGY IMAGE EXAM Routine 06/24/2024 3:20 PM CDT OPHTHALMOLOGY IMAGE EXAM Routine 06/24/2024 12:00 AM CDT from Last 3 Months Results * Surgery Image Exam-Surgery Image Exam [...] System IMG NON RAD IMAGI NG PROCEDURES Performing Organization Address City/[facility]/ZIP Co de Phone Number IIOR NA * (ABNORMAL) Glucose, POCT (07/08/2024 10:42 AM CDT) Glucose, POCT, B 146(H) 70 - 140 mg/dL 07/08/2024 10:56 AM CDT PCLX Comment: Glucose results collected from venous catheters may be falsely elevated. Site Venline 07/08/2024 10:56 AM CDT PCLX Blood 07/08/2024 10:4 2 AM CDT 07/08/2024 10:56 AM CDT Unknown Provider LAB POCT ORDERABLES- MANUAL POC [facility] [address] [place] [address], [facility] PCLX [facility] POC [address] [place] [address] * (ABNORMAL) Hemoglobin A1c (06/25/2024 11:49 AM CDT) Hemoglobin A1c, B 11.8(H) 4.0 - 5.6 % 06/25/2024 1:13 PM CDT DTL Comment: Hemoglobin A1c values greater than or equal to 6.5 percent are diagnostic for diabetes mellitus. ??Diagnosis should be confirmed by repeat testing. ??In diabetic patients, HbA1c goals should be discussed with healthcare provider. Blood (Blood, Venous) 06/25/2024 11:49 AM CDT 06/25/2024 12:10 PM CDT Rere Nair M.D., Ph.D. LAB BLOOD ADD-ON Performing Organization Address [facility] de Phone Number [facility] [address] [place] [address], [facility] [place] [address] [place] [address] * B-Scan Ultrasound - OD - Right Eye (06/25/2024 10:57 AM CDT) Narrative OPHTHALMOLGY NON-IMAGING ORDERS - 06/25/2024 11:11 AM CDT 06/25/2024 B-scan Right Eye: Possible partial vitreous detachment, attached at the nerve, moderate to dense vitreous opacities most notably at 12PE. No traction noted on kinetic exam, retina appears attached. ?? JH Rere Nair M.D., Ph.D. OPHTH ULTR ASOUND Performing Organization Address [facility] de Phone Number OPHTHALMOLGY NON-IMAGING ORDERS * Video-Eyes US-Eye [id number] Image Exam (06/25/2024 12:05 AM CDT) Only the most recent of4 resultswithin the time period is included. Narrative IIMS - 06/25/2024 11:02 AM CDT This order has been created and auto-finalized to support the import of images acquired without order. The clinical documentation to support these images can be found on the encounter that produced images. Provider Not In System IMG NON RAD IMAGI NG PROCEDURES Performing Organization Address [facility] de Phone Number IIMS NA * Optical Coherence Tomography - Macula/Retina - OU - Both Eyes (06/24/2024 5:13 PM CDT) Narrative OPHTHALMOLOGY IMAGING EXAM - 06/24/2024 10:59 PM CDT Right Eye Reliability was good. OCT device used was Spectralis . Left Eye Reliability was good. OCT device used was Spectralis . Notes See patient's clinical encounter for interpretation. Rere Nair M.D., Ph.D. OPH BRIAN GRAPHY Performing Organization Address [facility] Co de Phone Number OPHTHALMOLOGY IMAGING EXAM * Fluorescein Angiography - OU - Both Eyes (06/24/2024 3:49 PM CDT) Narrative OPHTHALMOLOGY IMAGING EXAM - 06/24/2024 10:59 PM CDT Right Eye Dye used is fluorescein. Fluorescein dose given is normal. Field of view is ultra-wide view. Left Eye Dye used is fluorescein. Fluorescein dose given is normal. Field of view is ultra-wide view. Notes OPTOS FA completed - LSA See patient's clinical encounter for interpretation. Rere Nair M.D., Ph.D. [facility] PHOT OGRAPHY Performing Organization Address [facility] de Phone Number OPHTHALMOLOGY IMAGING EXAM from Last 3 Months Care Teams Beer Runner Relationship Specialty Start Date End Date Elsewhere, Pcp PCP - General Internal Medicine 07/03/24
--- OUTSIDE RECORDS SUMMARY | 2024-07-29 11:38 | XMS_ITS | Clinical Summary ---
Author Organization [facility] Address [address] [place] [address] Care Team Providers Care Managing Director Name Role Phone Elsewhere, Pcp Primary Care Provider Unavailabl e Source Comments Patient records contain information from all sites at [facility]. For routine questions regarding patient records, call [phone] during business hours, M-F 8:00 AM - 5:00 PM Central Time. Record requests for emergency care only can be directed to [phone] at any time.[facility] Allergies No known active allergies Medications Medication [...] And Parasitic Disease (COVID-19) 07/04/2024 Hyperlipidemia 06/25/2024 Optics Test Technician Use Of Insulin Active 06/25/2024 Hemorrhage Vitreous [...] Plan (06/20/2024 2:20 PM CDT): Seen at [facility]. Has had 4 Vabysmo injections without clearance, [...] Type 2 With Diabetic Nephropat hy 08/13/2014 Encounters Date Type Department Care Team Description 07/21/2024 8:00 AM CDT Office Visit Department of Ophthalmology in [place], [place] [address] [place] [address] Rere Nair M.D., Ph.D. 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 Hemorrhage Vitreous Right (HCC) (Primary Dx) 07/09/2024 Orders Only Department of Ophthalmology in [place], [place] [address] [place] [address] Enid Sawant C.O.A. 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 [place] [phone] Rere Nair M.D., Ph.D. 25G pars plana vitrectomy, endolaser, air bubble, avastin injection to right eye. 07/08/2024 10:58 AM CDT Anesthesia Event RST [facility] OR [address] [place] [phone] Makayla Jones APRN, ANITA, D.N.PEduin Gayle M.D. 07/08/2024 10:55 AM CDT Ancillary Procedure Department of General Surgery 07/08/2024 10:08 AM CDT - 07/08/2024 1:33 PM CDT Hospital Encounter RST [facility] OR [address] [place] [phone] Rere Nair M.D., Ph.D. Discharge Disposition: Home or Self Care 07/04/2024 3:00 PM CDT Comprehensive Visit Preoperative Evaluation Center in [place], [place] [address] [place] [address] Rere Nair M.D., Ph.D. Mega Triplett, NILA, C.N.P., M.S. 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 06/25/2024 11:38 AM CDT - 06/25/2024 11:59 PM CDT Hospital Encounter Department of Laboratory Medicine and Pathology, [facility] in [place], [place] [address] [place] [phone] Rere Nair M.D., Ph.D. Hemorrhage Vitreous Right (HCC) Discharge Disposition: Home or Self Care 06/25/2024 11:00 AM CDT Comprehensive Visit Department of Ophthalmology in [place], [place] [address] [place] [phone] Rere Nair M.D., Ph.D. Hemorrhage Vitreous Right (HCC) (Primary Dx) 06/25/2024 10:00 AM CDT Ancillary Procedure Department of Ophthalmology in [place], [place] [address] [place] [phone] Rere Nair M.D., Ph.D. Hemorrhage Vitreous Right (HCC) 06/25/2024 12:05 AM CDT Ancillary Procedure Department of Ophthalmology 06/25/2024 Episode Changes Department of Ophthalmology in [place], [place] [address] [place] [phone] Gale Martínez 06/25/2024 Orders Only Department of Ophthalmology in [place], [place] [address] [place] [phone] Rodman, Enid L, C.O.A. Hemorrhage Vitreous Right (HCC) (Primary Dx) 06/25/2024 Ancillary Procedure Department of Ophthalmology 06/24/2024 3:20 PM CDT Ancillary Procedure Department of Ophthalmology 06/24/2024 2:15 PM CDT Ancillary Procedure Department of Ophthalmology in [place], [place] [address] [place] [address] Rere Nair M.D., Ph.D. 06/24/2024 2:00 PM CDT Procedure visit Department of Ophthalmology in [place], [place] [address] [place] [address] Rere Nair M.D., Ph.D. Wilmer Tao CMatthewOMatthewA. Hemorrhage Vitreous Right (HCC) 06/24/2024 1:30 PM CDT Ancillary Procedure Department of Ophthalmology in [place], [place] [address] [place] [address] Rere Nair M.D., Ph.D. Hemorrhage Vitreous Right (HCC) 06/24/2024 Ancillary Procedure Department of Ophthalmology 06/12/2024 Clinical Communication Department of Ophthalmology in [place], [place] [address] [place] [address] Rere Nair M.D., Ph.D. 06/11/2024 Orders Only Department of Ophthalmology in [place], [place] [address] [place] [address] Rere Nair M.D., Ph.D. Hemorrhage Vitreous Right (HCC) (Primary Dx) 06/11/2024 Clinical Communication Department of Ophthalmology in [place], [place] [address] [place] [address] Rere Nair M.D., Ph.D. 06/09/2024 Clinical Communication Department of Ophthalmology in [place], [place] [address] [facility] [place] [address] Melanie Adams O.D. 06/05/2024 [facility] [address] [phone] Bob Velasco M.D. Hemorrhage Vitreous Right (HCC) (Primary Dx) 04/30/2024 [facility] [address] [place] [phone] Bob Velasco M.D. Hemorrhage Vitreous Right (HCC) (Primary Dx) from Last 3 Months Family History Medical History Relation Name Comments Diabetes Brother Dmitry Maxwell Stroke Father Dmitry Maxwell Depression Mother Mikaela Sow Diabetes Paternal Grandmother Tram Aguayo Hypertension Paternal Grandmother Tram Aguayo Other cancer Son Thuan Maxwell Testicular can cer Relation Name Status Comments Brother Dmitry Maxwell Father Dmitry Amadora Mother Mikaela Sow Paternal Grandmother Tram Aguayo Son Thuan Maxwell Social History Tobacco Use Types Packs/Day Years Used Date Smoking Tobacco: Never Smokeless Tobacco: Never Tobacco Cessation:Counseling Given: Not Answered Alcohol Use Standard Drinks/Week Comments Yes 6 (1 standard drink = 0.6 oz pur e alcohol) [facility] Utilities Answer Date Recorded In the past 12 months has th e electric, gas, oil, or water [employer] threatened to shut off services in your [...] living situation today? I have a [facility] place to live 07/04/2024 Sex and [...] CDT Ancillary Procedure Department of Ophthalmology in [place], [place] [address] [place] [phone] Rere Nair M.D., Ph.D. 200 [place] [phone] 08/01/2024 2:00 PM CDT Procedure visit Department of Ophthalmology in [place], [place] [address] [place] [phone] Rere Nari M.D., Ph.D. [address] [place] [phone] 08/01/2024 2:15 PM CDT Ancillary Procedure Department of Ophthalmology in [place], [place] [address] [place] [phone] Rere Nair M.D., Ph.D. [address] [place] [phone] 08/01/2024 2:45 PM CDT Ancillary Procedure Department of Ophthalmology in [place], [place] [address] [place] [phone] Rere Nair M.D., Ph.D. [address] [place] [phone] 08/01/2024 3:00 PM CDT Office Visit Department of Ophthalmology in [place], [place] [address] [place] [phone] Rere Nair M.D., Ph.D. [address] [place] [phone] Health Maintenance Due Date Last Done Comments CT Colonography 1971 Cologuard 1971 Colonoscopy 1971 Colorectal Cancer Screening 1971 Diabetic Office Visit with F oot Exam 1971 FIT 1971 HIV Screening 1971 Hepatitis C Screening 1971 Lipid (Cholesterol) Screening 1971 Mammogram 1971 Urine Albumin 1971 Pneumococcal vaccine (0-64 y ears) (1 of 2 - PCV) 1977 Hepatitis B Vaccines (1 of 3 - 19+ 3-dose series) 1990 Zoster Vaccines (1 of 2) 2021 Depression Screening (Annual PHQ-2) 11/05/2023 COVID-19 Vaccine ( - 2023-2 5 season) 2024 07/01/2021, 01/28/2021 Influenza Vaccine (#1) 2024 2, 09/04/2017, 10/19/2008, Additional history exists Hemoglobin A1C 09/25/2024 06/25/2024, 06/30/2019 Office Visit for Blood Press ure Check / Re-check 10/04/2024 07/04/2024 Creatinine Level (Kidney Fun ction Test) 05/01/2025 05/01/2024, 06/30/2019 Dilated Eye Exam 07/21/2025 07/21/2024, , 06/25/2024, Additional history exists Cervical Cancer Screening 06/03/2027 06/03/2024 DTaP,Tdap,and Td Vaccines (4 - Td or Tdap) 05/27/2034 05/27/2024, 02/09/2014, 11/05/2005 Procedures Procedure Name Priority Date/Time Associated Diagnosis Comments SURGERY IMAGE EXAM Routine 07/08/2024 10 :55 AM CDT VITRECTOMY - PARS PLANA 25 GAUGE 07/08/2024 10:48 AM CDT Hemorrhage Vitreous Right (HCC) Case Notes Cork Insulator @ 1012. TPU 11. GLUCOSE POCT, B [...] RAD IMAGI NG PROCEDURES Performing Organization Address City/[facility]/ZIP Co de Phone Number IINY NA * (ABNORMAL) Glucose, POCT (07/08/2024 10:42 AM CDT) Glucose, POCT, B 146(H) 70 - 140 mg/dL 07/08/2024 10:56 AM CDT PCLX Comment: Glucose results collected from venous catheters may be falsely elevated. Site Venline 07/08/2024 10:56 AM CDT PCLX Blood 07/08/2024 10:4 2 AM CDT 07/08/2024 10:56 AM CDT Unknown Provider LAB POCT ORDERABLES- MANUAL POC [facility] [address] [place] [address], [place] PCLX [facility] POC [address] [place] [address] * (ABNORMAL) Hemoglobin A1c (06/25/2024 11:49 AM [...] Ph.D. LAB BLOOD ADD-ON Performing Organization Address [facility] de Phone Number [facility] [address] [place] [address], [place] DTL [facility] [address] [place] [address] * B-Scan Ultrasound - OD - Right Eye (06/25/2024 10:57 AM CDT) Narrative OPHTHALMOLGY NON-IMAGING ORDERS - 06/25/2024 11:11 AM CDT 06/25/2024 B-scan Right Eye: Possible partial vitreous detachment, attached at the nerve, moderate to dense vitreous opacities most notably at 12PE. No traction noted on kinetic exam, retina appears attached. ?? JH Rere Nair M.D., Ph.D. OPHTH ULTR ASOUND Performing Organization Address [facility] de Phone Number OPHTHALMOLGY NON-IMAGING ORDERS * Video-Eyes US-Eye [id number] Image Exam (06/25/2024 12:05 AM CDT) Only [...] RAD IMAGI NG PROCEDURES Performing Organization Address [facility] de Phone Number IIMS NA * Optical [...] Ph.D. OPH BRIAN GRAPHY Performing Organization Address [facility] Co de Phone Number OPHTHALMOLOGY IMAGING EXAM [...] for interpretation. Rere Nair M.D., Ph.D. OPH PHOT OGRAPHY Performing Organization Address [facility] de Phone Number OPHTHALMOLOGY IMAGING EXAM from Last 3 Months Care Teams Managing Director Relationship Specialty Start Date End Date Elsewhere, Pcp PCP - General Internal Medicine 07/03/24
--- OUTSIDE RECORDS SUMMARY | 2024-07-29 11:38 | XMS_ITS | Encounter Summary ---
Author Organization [facility] Address [address] [place] [address] Care Team Providers Care Medical Imaging Director Name Role Phone Elsewhere, Pcp Primary Care Provider Unavailabl e Reason for Visit * Auth/Cert (Routine) Specialty Diagnoses / Procedures Referred By Zev garner Referred To Contact Diagnoses Hemorrhage Vitreous Right (HCC) Hemorrhage Vitreous Right (HCC) [H43.11] Procedures OR VITRECTOMY [facility] PARS PLANA 25G pars plana vitrectomy, endolaser, air, possible gas and all other associated procedures right eye Rere Nair M.D., Ph.D. [address] [place] [phone] Referral ID Status Reason Start Date Expiration Date Visits Re quested Visits Authorized [id number] 1 1 Encounter Details Date Type Department Care Team (Late st Contact Info) Description 07/08/2024 10:58 AM CDT Anesthesia Event [facility] MA[facility] OR [address] [place] [phone] Makayla Jones APRN, CRNA, D.N.P. [address] [place] [phone] Eduin Kay M.D. [address] [place] [phone] Anesthesia Record Procedure Summary Procedure Name Responsible Anesthesiologist Anesthesia Start Time Anesthesia Stop Time 25G pars plana vitrectomy, endolaser, air bubble, avastin injection to right eye. (Right: Eye) Makayla Jones APRN, CRNA, D.N.P. 09/03/24 1058 07/08/24 1304 Events Date Time Event Comment 07/08/2024 1058 An Start Machine/Equipme nt Checked Infection Precautions Followed Procedure/Site Verified NPO Status Verified Supine Standard ASA Monitors Applied 1106 Turnover to Proceduralist 1120 Proc Start 1245 Proc Fin 1250 Turnover to ANE Staff 1250 an stop data 1304 An End I completed my handoff to the receiving staff during which we 1. Identified the patient 2. Identified the responsible provider 3. Reviewed the pertinent medical history 4. Discussed the surgical course 5. Reviewed intra-op anesthesia management and issues during anesthesia 6. Set expectations for post-procedure period 7. Allowed opportunity for questions and acknowledgement of understanding. Meds Name Total midazolam PF injection 1 mg/mL 2 mg lidocaine 2% (mg) injection 40 mg ondansetron PF 4 mg/2 mL injection 4 mg propofol 10 mg/mL injection 40 mg Lactated Ringers Free Drip 350 mL * Agents No agents on file. * Blood No blood administrations on file. Lines, Drains, and Airways Type Details Placement Removal Wound 07/08/24; 1122; N; Incision; Eye; Right 07/08/24 1122 by Elana Tyler, R.N. Peripheral IV Placement Date: 01/26; Placement Time: 1046; Catheter Size: 22 G; Orientation: Left, Posterior; Location: Hand; Site Prep: Chlorhexidine (Preferred); Technique: Anatomical landmarks (2); Inserted by: bd; Insertion Attempts: 2 (cgx1 blew); Removal Date: 07/08/24; Removal Time: 1328 07/08/24 1046 by Selena Carcamo 07/08/24 1328 by Mariam Nevarez, R.N. documented in this encounter Social History Tobacco Use Types Packs/Day Years Used Date Smoking Tobacco: Never Smokeless Tobacco: Never Alcohol Use Standard Drinks/Week Comments Yes 6 (1 standard drink = 0.6 oz pur e alcohol) [facility] Utilities Answer Date Recorded In the past 12 months has [employer], gas, oil, or water [employer] threatened to shut off services in your [...] your living situation today? I have a [facility] place to live 07/04/2024 Sex and Gender Information Value Date Recorded Sex Assigned at Female 07/04/2024 1:43 PM CDT Gender Identity Female 07/04/2024 1:43 PM CDT Sexual Orientation Straight 07/04/2024 1: 43 PM CDT documented as of this encounter OR Notes * Anesthesia Preprocedure Evaluation - Eduin Kay M.D. - 07/08/2024 10:32 AM CDT Preprocedure Anesthesia & H&P Assessment Procedure Summary Date/Time: 07/08/24 1211 Procedure: 25G pars plana vitrectomy, endolaser, air, possible gas, all other associated proceduresright eye. (Right: Eye) Diagnosis: Hemorrhage Vitreous Right (HCC) [H43.11] Pre-op diagnosis: Hemorrhage Vitreous Right (HCC) [H43.11]. Location: [facility] OR [address] [facility] 03 808 / [facility], [facility] in [place], [place] Providers: Rere Nair M.D., Ph.D. Pertinent components of the patient's history including current problem list, medical history, surgical history, family history, social history, medications and allergies were reviewed. Present illness and pre-op diagnosis were confirmed. The planned surgery / procedure was verified with the patient / legal guardian. 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) Other (+) Obesity Body Mass Index 30-39.9 Adult OBJECTIVE PHYSICAL EXAMINATION Airway (HEENT) Mallampati: III TM Distance: >3 FB Neck ROM: Limited Cardiovascular Rhythm: Regular Rate: Normal Functional Capacity: >4 METS Pulmonary Pulmonary Assessment: Clear General / Constitutional Constitutional Assessment: Normal General State of Health:: calm Abdomen Normal Musculoskeletal Normal Skin Normal ASSESSMENT / PLAN ANESTHESIA PLAN ASA: 3 Anesthesia Plan: MAC Patient seen and allergies reviewed, anesthesia plan and risks discussed directly with patient /legal guardian or through an director hair. The use of blood products not discussed Approval to Proceed: approved for anesthesia documented in this encounter Plan of Treatment Upcoming Encounters Date Type Department Care Team (Late st Contact Info) Description 08/01/2024 1:30 PM CDT Ancillary Procedure Department of Ophthalmology in [place], [place] [address] [place] [phone] Rere Nair M.D., Ph.D. [address] [place] [phone] 08/01/2024 2:00 PM CDT Procedure visit Department of Ophthalmology in [place], [place] [address] [place] [phone] Rere Nair M.D., Ph.D. [address] [place] [phone] 08/01/2024 2:15 PM CDT Ancillary Procedure Department of Ophthalmology in [place], [place] [address] [place] [phone] Rere Nair M.D., Ph.D. [address] [place] [phone] 08/01/2024 2:45 PM CDT Ancillary Procedure Department of Ophthalmology in [place], [place] [address] [place] [phone] Rere Nair M.D., Ph.D. [address] [place] [phone] 08/01/2024 3:00 PM CDT Office Visit Department of Ophthalmology in [place], [place] [address] [place] [phone] Rere Nair M.D., Ph.D. [address] [place] [phone] documented as of this encounter Visit Diagnoses Not on filedocumented in this encounter Administered Medications Inactive Administered Medications - up to 3 most recent administrations Medication Order MAR Action Action Date Dose Rate Site Lactated Ringer's intravenous, Continuous Infusion: Per Instructions PRN, Starting on Sun07/08/24 at 1059, Anesthesia Intra-op New Bag 07/08/2024 10:59 AM CDT lidocaine (PF) (cardiac) injection intravenous, As needed, Starting on Sun07/08/24 at 1106, Anesthesia Intra-op Given 07/08/2024 11:06 AM CDT 40 mg midazolam (PF) injection (Versed) intravenous, As needed, Starting on Sun07/08/24 at 1102, Anesthesia Intra-op Given 07/08/2024 11:02 AM CDT 2 mg ondansetron (PF) injection (Zofran) intravenous, As needed, Starting on Sun07/08/24 at 1106, Anesthesia Intra-op Given 07/08/2024 11:06 AM CDT 4 mg propofoL injection (Diprivan) intravenous, As needed, Starting on Sun07/08/24 at 1106, Anesthesia Intra-op Given 07/08/2024 11:09 AM CDT 10 mg Given 07/08/2024 11:06 AM CDT 30 mg documented in this encounter Care Teams Medical Imaging Director Relationship Specialty Start Date End Date Elsewhere, Pcp PCP - General Internal Medicine 07/03/24 documented as of this encounter
--- OUTSIDE RECORDS SUMMARY | 2024-07-29 11:38 | XMS_ITS | Encounter Summary ---
Author Organization [facility] Address [address] [place] [phone] Care Team Providers Care Brush Cutter Name Role Phone Elsewhere, Pcp Primary Care Provider Unavailabl e Reason for Visit * Outpatient (Routine) - Closed Specialty Diagnoses / Procedures Referred By Zev t Referred To Contact Ophthalmology Rere Nair M.D., Ph.D. [address] [place] [phone] [facility] Referral ID Status Reason Start Date Expiration Date Visits Re quested Visits Authorized [id number] Closed 06/25/2024 12/25/2025 1 1 Encounter Details Date Type Department Care Team (Latest Contact Info) Description 07/09/2024 8:00 AM CDT Office Visit Department of Ophthalmology in [place], [place] [address] [place] [phone] Rere Nair M.D., Ph.D. [address] [place] [phone] Hemorrhage Vitreous Right (HCC) (Primary Dx) Social History Tobacco Use Types Packs/Day Years Used Date Smoking Tobacco: Never Smokeless Tobacco: Never Alcohol Use Standard Drinks/Week Comments Yes 6 (1 standard drink = 0.6 oz pur e alcohol) [facility] Utilities Answer Date Recorded In the [...] your living situation today? I have a [facility] place to live 07/04/2024 Sex and Gender Information Value Date Recorded Sex Assigned at Female 07/04/2024 1:43 PM CDT Gender Identity Female 07/04/2024 1:43 PM CDT Sexual Orientation Straight 07/04/2024 1: 43 PM CDT documented as of this encounter Progress Notes * Rere Nair M.D., Ph.D. - 07/09/2024 8:00 AM CDT Images from the original note were not included. Retina Post-operative Note, [facility] at [place], [place] Post-operative day #1: Status post pars plana vitrectomy, endolaser, air, Avastin right eye 07/08/[address] Slept well with no significant pain Brief Ocular History: Vitreous Hemorrhage RIGHT eye Proliferative Diabetic retinopathy BOTH eyes -status post pars plana vitrectomy, endolaser, air, Avastin right eye 07/08/24 (Korey/Mike/Benny) Ocular Meds: Prednisolone 4x per day Ofloxacin 4x per day Atropine 2x per day Glaucoma meds: none Ophthalmic Imaging: See prior clinic notes for descriptions of previous imaging See [facility] ophthalmology module for exam information. Assessment: 07/09/2024 Hemorrhage Vitreous Right (HCC) Exam appropriate for post-op day #1 status post pars plana vitrectomy, endolaser, Avastin, air right eye. Retina flat. Intraocular pressure acceptable. Start drop regimen, as below Discussed with patient air, endophthalmitis, and retinal detachment precautions Instructions are provided below, and handout was given to patient Plan: 07/09/2024 Start atropine 2x per day to operative eye Start ofloxacin 4x per day to operative eye Start prednisolone 4x per day to operative eye Positioning: No lying flat on back with bubble in eye (sleep on side) No heavy lifting (>20 lbs) or bending at the waist for 2 weeks total Eye shield at bedtime for 1 week total No traveling >2000 feet with air in the eye Return precautions discussed: Call for decreased vision, increased distortion, increased pain, new floaters, or flashing lights Follow-up: 1 week for post-op week #1 dilated fundus exam both eyes (already on atropine right eye), with analia Zamudio imaging 1 month for dilated fundus exam both eyes and Optos fluorescein angiography both eyes transit left eye, OCT macula both eyes Spectralis Letters to: Dr. Mike Nair MD, PhD Senior Reliability Engineer Mushroom Spawn Maker Vitreoretinal Surgery & Diseases [facility], Department of Ophthalmology [address] [place] [phone] documented in this encounter Miscellaneous Notes * Assessment & Plan Note - Rere Nair M.D., Ph.D. - 07/09/2024 8:40 AM CDTAssociated Problem(s): Hemorrhage Vitreous Right (HCC) Exam appropriate for post-op day #1 status post pars plana vitrectomy, endolaser, Avastin, air right eye. Retina flat. Intraocular pressure acceptable. Start drop regimen, as below Discussed with patient air, endophthalmitis, and retinal detachment precautions Instructions are provided below, and handout was given to patient documented in this encounter Plan of Treatment Upcoming Encounters Date Type Department Care Team (Late st Contact Info) Description 08/01/2024 1:30 PM CDT Ancillary Procedure Department of Ophthalmology in [address] [phone] Rere Nair M.D., Ph.D. [address] [place] [phone] 08/01/2024 2:00 PM CDT Procedure visit Department of Ophthalmology in [address] [phone] Rere Nair M.D., Ph.D. [address] [place] [phone] 08/01/2024 2:15 PM CDT Ancillary Procedure Department of Ophthalmology in [place], [place] [address] [place] [phone] Rere Nair M.D., Ph.D. [address] [place] [phone] 08/01/2024 2:45 PM CDT Ancillary Procedure Department of Ophthalmology in [place], [place] [address] [place] [phone] Rere Nair M.D., Ph.D. [address] [place] [phone] 08/01/2024 3:00 PM CDT Office Visit Department of Ophthalmology in [place], [place] [address] [place] [phone] Rere Nair M.D., Ph.D. 200 [place] [phone] documented as of this encounter Visit Diagnoses Diagnosis Hemorrhage Vitreous Right (HCC)- Primary documented in this encounter Care Teams Brush Cutter Relationship Specialty Start Date End Date Elsewhere, Pcp PCP - General Internal Medicine 07/03/24 documented as of this encounter
--- OUTSIDE RECORDS SUMMARY | 2024-07-29 11:38 | XMS_ITS | Encounter Summary ---
Author Organization [facility] Address [address] [place] [address] Care Team Providers Care Mercantile Agent Name Role Phone Elsewhere, Pcp Primary Care Provider Unavailabl e Encounter Details Date Type Department Care Team (Late st Contact Info) Description 07/09/2024 Orders Only Department of Ophthalmology in [place], [place] [address] [place] [phone] Enid Sawant, C.O.A. 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 I have a [facility] place to live 07/04/2024 Sex and [...] CDT Ancillary Procedure Department of Ophthalmology in [place], [place] [address] [place] [phone] Rere Nair M.D., Ph.D. [address] [place] [phone] 08/01/2024 2:00 PM CDT Procedure visit Department of Ophthalmology in [place], [place] [address] [place] [phone] Rere Nair M.D., Ph.D. [address] [place] [phone] 08/01/2024 2:15 PM CDT Ancillary Procedure Department of Ophthalmology in [place], [place] [address] [place] [phone] Rere Nair M.D., Ph.D. [address] [place] [phone] 08/01/2024 2:45 PM CDT Ancillary Procedure Department of Ophthalmology in [place], [place] [address] [place] [phone] Rere Nair M.D., Ph.D. [address] [place] [phone] 08/01/2024 3:00 PM CDT Office Visit Department of Ophthalmology in [place], [place] [address] [place] [phone] Rere Nair M.D., Ph.D. 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
--- OUTSIDE RECORDS SUMMARY | 2024-07-29 11:38 | XMS_ITS | Encounter Summary ---
Author Organization [facility] Address [address] [place] [address] Care Team Providers Care Microsoft Bi Consultant Name Role Phone Elsewhere, Pcp Primary Care Provider Unavailabl e Reason for Visit * Auth/Cert (Routine) Specialty Diagnoses / Procedures Referred By Zev t Referred To Contact Diagnoses Hemorrhage Vitreous Right (HCC) Hemorrhage Vitreous Right (HCC) [H43.11] Procedures SC VITRECTOMY [facility] PARS PLANA 25G pars plana vitrectomy, endolaser, air, possible gas and all other associated procedures right eye Rere Nair M.D., Ph.D. [address] [place] [phone] Referral ID Status Reason Start Date Expiration Date Visits Re quested Visits Authorized [id number] 1 1 Encounter Details Date Type Department Care Team (Late st Contact Info) Description 07/08/2024 12:11 PM CDT - 07/08/2024 2:26 PM CDT Surgery [facility] OR [address] [place] [phone] Rere Nair M.D., Ph.D. [address] [place] [phone] 25G pars plana vitrectomy, endolaser, air bubble, avastin injection to right eye. Social History Tobacco Use Types Packs/Day Years Used Date Smoking Tobacco: Never Smokeless Tobacco: Never Alcohol Use Standard Drinks/Week Comments Yes 6 (1 standard drink = 0.6 oz pur e alcohol) [facility] Utilities Answer Date Recorded In the [...] type of surgery. In general, we recommend vjgi-vod-umeaqin pain medications such as Extra Strength Tylenol. [...] evaluation. Any questions or concerns please call [phone] (Business hours) [phone] (Evenings and weekends, ask for the Dairy Tester cleaning professional) documented in this encounter Medications at Time [...] this encounter Nursing Notes * Elana Tyler R.N. - 07/08/2024 11:53 AM CDT Air bubble to right eye. Green wristband placed prior to OR dismissal. Positioning discussed with patient. documented in this encounter OR Notes * Op Note - Rere Nair M.D., Ph.D. - 07/08/2024 11:20 AM CDT Pre-op Diagnosis Hemorrhage Vitreous Right (HCC) Post-op Diagnosis Hemorrhage Vitreous Right (HCC) Warranty Clerk A medical practice assistant actively participated and was necessary for [...] CDT Ancillary Procedure Department of Ophthalmology in [place], [place] [address] [place] [phone] Rere Nair M.D., Ph.D. [address] [place] [phone] 08/01/2024 2:00 PM CDT Procedure visit Department of Ophthalmology in [place], [place] [address] [place] [phone] Rere Nair M.D., Ph.D. [address] [place] [phone] 08/01/2024 2:15 PM CDT Ancillary Procedure Department of Ophthalmology in [place], [place] [address] [place] [phone] Rere Nair M.D., Ph.D. [address] [place] [phone] 08/01/2024 2:45 PM CDT Ancillary Procedure Department of Ophthalmology in [place], [place] [address] [place] [phone] Rere Nair M.D., Ph.D. [address] [place] [phone] 08/01/2024 3:00 PM CDT Office Visit Department of Ophthalmology in [address] [phone] Rere Nair M.D., Ph.D. [address] [place] [phone] documented as of this encounter Procedures Procedure Name Priority Date/Time Associated Diagnosis Comments VITRECTOMY - PARS PLANA 25 GAUGE 07/08/2024 10:48 AM CDT Hemorrhage Vitreous Right (HCC) Case Notes Recreation Counselor @ 1012. TPU 11. GLUCOSE POCT, B Routine 07/08/2024 10:42 AM CDT documented in this encounter Results * (ABNORMAL) Glucose, POCT (07/08/2024 10:42 AM CDT) [facility] Glucose, POCT, B 146(H) 70 - 140 mg/dL 07/08/2024 10:56 AM CDT PCLX Comment: Glucose results collected from venous catheters may be falsely elevated. Site Venline 07/08/2024 10:56 AM CDT PCLX Blood 07/08/2024 10:4 2 AM CDT 07/08/2024 10:56 AM CDT Unknown Provider LAB POCT ORDERABLES- MANUAL POC [facility] [address] [place] [address], [facility] PCLX 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) Hemorrhage Vitreous Right (HCC) documented in this encounter Admitting Diagnoses [...] atropine 1 % ophthalmic solution (Isopto Atropine) As needed, Starting on Sun07/08/24 at 1246, Intra-Op Given 07/08/2024 12:46 PM CDT 2 drops Right Eye balanced salt solution ophthalmic irrigation (BSS) As needed, Starting on Sun07/08/24 at 1138, Intra-Op Given 07/08/2024 11:38 AM CDT 30 mL Right Eye balanced salt solution plus ophthalmic irrigation (BSS Plus) As needed, Starting on Sun07/08/24 at 1137, Intra-Op Given 07/08/2024 11:37 AM CDT 250 mL Right Eye bevacizumab intraocular injection 1.25 mg (Avastin) 1.25 mg, intravitreal, Once, On Sun07/08/24 at 1215, For 1 dose, Intra-Op, Inject into right eye. Given 07/08/2024 12:43 PM CDT 1.25 mg Right Eye BUPivacaine 0.5 % (5 mg/mL) injection (Marcaine) As needed, Starting on Sun07/08/24 at 1248, Intra-Op Given 07/08/2024 12:48 PM CDT 1 mL Right Eye ceFAZolin subconjunctival 25 mg (Ancef) 25 mg, subconjunctival, Once in surgery, OR use only, Starting on Sun07/08/24 at 1109, For 1 dose, Intra-Op, Inject into right eye. SUBCONJUNCTIVAL Use Only. Single dose vial, discard remainder. Bilateral administration requires two separate vials. Given 07/08/2024 12:48 PM CDT 1 mL Right Eye chlorhexidine 0.12 % mouthwash 15 mL (Peridex) [...] Given 07/08/2024 10:37 AM CDT 1 drop dexAMETHasone injection 2 mg (Decadron) 2 mg, subconjunctival, Once in surgery, OR use only, Starting on Sun07/08/24 at 1109, For 1 dose, Intra-Op, Inject into right eye. Given 07/08/2024 12:44 PM CDT 2 mg Right Eye hypromellose intraocular solution ([place]ucoat) As needed, Starting on Sun07/08/24 at 1138, Intra-Op Given 07/08/2024 11:38 AM CDT 2 mL Right Eye uklurlqpc-POHhiouldhz-semlifioy dase human recombinant (Ophthalmic Block Solution #4) 9.3 mg-3.5 mg-11.2 Units/mL 20.1 mL 20.1 mL, ophthalmic, Once in surgery, OR use only, Starting on Sun07/08/24 at 1109, For 1 dose, Intra-Op Given 07/08/2024 11:09 AM CDT 10 mL Right Eye neomycin-polymyxin B-dexameth ophthalmic ointment (Maxitrol) As needed, Starting on Sun07/08/24 at 1244, Intra-Op Given 07/08/2024 12:44 PM CDT 1 Application Right Eye phenylephrine 2.5 % ophthalmic solution 1 drop [...] than or equal to 300: Call anesthesia anqlczwue-VNLcwileaam-fqsgleamzplp e human recombinant (Ophthalmic Block Solution #4) [...] NPO) documented in this encounter Care Teams Microsoft Bi Consultant Relationship Specialty Start Date End Date Elsewhere, Pcp PCP - General Internal Medicine 07/03/24 documented as of this encounter
--- OUTSIDE RECORDS SUMMARY | 2024-07-29 11:39 | XMS_ITS | Encounter Summary ---
Author Organization [facility] Address [address] [place] [address] Care Team Providers Care Machine Builder Name Role Phone Unavailable Primary Care Provider Unavailabl e Encounter Details Date Type Department Care Team (Late Contact Info) Description 06/11/2024 Orders Only Department of Ophthalmology in [place], [place] [address] [place] [phone] Rere Nair M.D., Ph.D. [address] [place] [phone] Hemorrhage Vitreous Right (HCC) (Primary Dx) Social History Tobacco Use Types Packs/Day Years Used Date Smoking Tobacco: Never Assessed Nutrition Answer Date Recorded Nutrition: EVOO Fat Source Unknown 01/10 Nutrition: Servings of Fruits/Vegetables per Day Not on file 01/10/2021 Dental Answer Date Recorded Dental: Regular Dentist Unknown 06/09/20 Sex and Gender Information Value Date Recorded Sex Assigned at Female 07/04/2024 1:43 PM CDT Gender Identity Female 07/04/2024 1:43 PM CDT Sexual Orientation Straight 07/04/2024 1: 43 PM CDT documented as of this encounter Plan of Treatment Upcoming Encounters Date Type Department Care Team (Late Contact Info) Description 08/01/2024 1:30 PM CDT Ancillary Procedure Department of Ophthalmology in [place], [place] [address] [place] [phone] Rere Nair M.D., Ph.D. [address] [place] [phone] 08/01/2024 2:00 PM CDT Procedure visit Department of Ophthalmology in [place], [place] [address] [place] [phone] Rere Nair M.D., Ph.D. [address] [place] [phone] 08/01/2024 2:15 PM CDT Ancillary Procedure Department of Ophthalmology in [place], [place] [address] [place] [phone] Rere Nair M.D., Ph.D. [address] [place] [phone] 08/01/2024 2:45 PM CDT Ancillary Procedure Department of Ophthalmology in [address] [phone] Rere Nair M.D., Ph.D. [address] [place] [phone] 08/01/2024 3:00 PM CDT Office Visit Department of Ophthalmology in [address] [phone] Rere Nair M.D., Ph.D. [address] [place] [phone] documented as of this encounter Results * B-Scan Ultrasound - OD - Right Eye (06/25/2024 10:57 AM CDT) Narrative OPHTHALMOLGY NON-IMAGING ORDERS - 06/25/2024 11:11 AM CDT 06/25/2024 B-scan Right Eye: Possible partial vitreous detachment, attached at the nerve, moderate to dense vitreous opacities most notably at 12PE. No traction noted on kinetic exam, retina appears attached. ?? Rere Nair M.D., Ph.D. OPH ULTR ASOUND Performing Organization Address [facility] Phone Number OPHTHALMOLGY NON-IMAGING ORDERS * Optical Coherence Tomography - Macula/Retina - OU - Both Eyes (06/24/2024 5:13 PM CDT) Narrative OPHTHALMOLOGY IMAGING EXAM - 06/24/2024 10:59 PM CDT Right Eye Reliability was good. OCT device used was Spectralis . Left Eye Reliability was good. OCT device used was Spectralis . Notes See patient's clinical encounter for interpretation. Rere Nair M.D., Ph.D. [facility] Performing Organization Address [facility] de Phone Number OPHTHALMOLOGY IMAGING EXAM * [...] Ph.D. OPH PHOT OGRAPHY Performing Organization Address [facility] de Phone Number OPHTHALMOLOGY IMAGING EXAM documented in this encounter Visit Diagnoses Diagnosis Hemorrhage Vitreous Right (HCC)- Primary Hemorrhage Vitreous Right (HCC) Hemorrhage Vitreous Right (HCC) Hemorrhage Vitreous Right (HCC) documented in this encounter
--- OUTSIDE RECORDS SUMMARY | 2024-07-29 11:39 | XMS_ITS | Encounter Summary ---
Author Organization [facility] Address [address] [place] [address] Care Team Providers Care Cmo Name Role Phone Unavailable Primary Care Provider Unavailabl e Encounter Details Date Type Department Care Team (Late Contact Info) Description 06/24/2024 Ancillary Procedure Department of Ophthalmology Social History Tobacco Use Types Packs/Day Years [...] CDT Ancillary Procedure Department of Ophthalmology in [place], [place] [address] [place] [phone] Rere Nair M.D., Ph.D. [address] [place] [phone] 08/01/2024 2:00 PM CDT Procedure visit Department of Ophthalmology in [place], [place] [address] [place] [phone] Rere Nair M.D., Ph.D. [address] [place] [phone] 08/01/2024 2:15 PM CDT Ancillary Procedure Department of Ophthalmology in [place], [place] [address] [place] [phone] Rere Nair M.D., Ph.D. [address] [place] [phone] 08/01/2024 2:45 PM CDT Ancillary Procedure Department of Ophthalmology in [place], [place] [address] [place] [phone] Rere Nair M.D., Ph.D. [address] [place] [phone] 08/01/2024 3:00 PM CDT Office Visit Department of Ophthalmology in [place], [place] [address] [place] [phone] Rere Nair M.D., Ph.D. [address] [place] [phone] documented as of this encounter Procedures Procedure Name Priority Date/Time Associated Diagnosis Comments OPHTHALMOLOGY IMAGE EXAM Routine 06/24/2024 12:00 AM CDT documented in this encounter Results * Eyes Spectralis OCT-Ophthalmology Image Exam (06/24/2024 12:00 AM CDT) Narrative IIMS - 06/24/2024 2:27 PM CDT This order has been created [...]
--- OUTSIDE RECORDS SUMMARY | 2024-07-29 11:39 | XMS_ITS | Data Portability ---
Author Organization [facility] [employer] [facility] Address [address] [place] [address] [place] [address] Assessment No assessment recorded. Plan of Treatment Reminders Order Date Submit Date Provider Last Modified By Organization Details Last Modified Time Details Appointments Any 2023 11:00A M Not available Not available Not available Lab fecal occult blood, immunoass ay, stool 2023 024 [facility], [address] [place] [address], [phone], 07/04/2024 04:02:30 ALT (alanine aminotran sferase), serum or plasma 2023 024 [facility], [address] [place] [address], [phone], 07/04/2024 04:02:30 BMP, serum or plasma 2023 024 [facility], [address] [place] [address], [address], 07/04/2024 04:02:30 glycohemo globin, total, blood 2023 024 [facility], [address] [place] [address], [address], 07/04/2024 04:02:30 albumin/c reatinine , ratio, urine 2023 024 [facility], [address] [place] [address], [phone], 07/04/2024 04:02:31 lipid panel, serum 2023 024 [facility], [address] [place] [address], [address], 07/04/2024 04:02:31 CBC 2023 024 [facility], [address] [place] [address], [phone], 07/04/2024 04:02:31 TSH + free T4, serum 2023 024 [facility], [address] [place] [address], [phone], 07/04/2024 04:02:31 vitamin D, 25-hydrox y, total, serum 2023 [facility], [address] [place] [address], [address], 07/04/2024 04:02:31 Referral None recorded. Procedures None recorded. Surgeries None recorded. Imaging exercise stress test 2023 VIOLETTA Not available 03/28/2024 12:24:12 US, echocardi ogram 2023 VIOLETTA Not available 04/01/2024 17:15:58 Medication Orders naproxen 500 mg tablet,de layed release [email or web address] [place] [address], [address] [place] [address], [address], 06/07/2023 18:41:29 aspirin 81 mg tablet,de layed release [address], [address], 09/06/2021 19:34:00 lisinopri l 10 mg tablet [address] [facility], [address], 02/13/2024 14:17:26 Prozac 20 mg capsule [email or web address], [address], 02/13/2024 14:17:16 clindamyc in HCl 150 mg capsule [address], [address], 06/07/2023 18:41:12 cephalexi n 500 mg capsule [address], [address], 06/07/2023 18:35:23 atorvasta tin 10 mg tablet [address], [address], 02/14/2024 12:19:12 lisinopri l 5 mg tablet [address], [address], 02/14/2024 12:18:59 metronida zole 0.75 % topical cream [address], [address], 02/14/2024 15:20:05 benzoyl peroxide 5 % topical cleanser [address], [address], 02/14/2024 12:19:32 gabapenti n 100 mg capsule 2023 024 [facility], [address] [place], [address], 02/14/2024 12:19:21 Patient TargetsNo targets recorded. Patient Instructions Encounter Date Encounter Id Patient Instructions Last Modified By Organization Details Last Modified Time 09/06/2021 [id number] check on optometry and UAN qian Not available 09/07/2021 11:08:30 Reason for Referral None Reported. Results Created Date Observation Date Name Description Value Unit Range Abnormal Flag Note LastModifiedBy Organization Detail LastModifiedTime 07/23/20 20 07/01/2020 XR, knee, 3 view No observ ation record ed. [email or web address] [facility] Radiology Department [address] [place], [address], 08/05/2020 18:04:13 03/28/20 24 03/18/2024 exerc ise stres s test No observ ation record ed. [email or web address] [facility] Radiology [address] [place], [address], 04/04/2024 12:11:08 04/01/20 24 03/17/2024 US, echoc ardio gram No observ ation record ed. Not Available 2023 17:28:36 Result Notes None recorded. Problems Name Problem SNOMED Code Status Onset Date Resolution Date Notes Provider Name and Address Organization Details Recorded Time Insulin treated type 2 diabetes mellitus 444356102 Active 2020 Riky Schroeder MD [address] [place], [address], [facility] [employer] 16:19:02 Major depressiv e disorder 960895106 Active 2020 Riky Schroeder MD [address] [place], [address], [facility] [employer] 16:19:33 Contusion of left knee 33440860460 634838 Completed 201906/07/2023 Berta Lizarraga NP [address] [place], [address], [facility] 3 18:39:59 Contusion of right knee 36264295867 712745 Completed 201906/07/2023 Berta Lizarraga NP [address] [place], [address], [facility] 3 18:40:03 Essential hypertens ion 50212151 Active 2022 Berta Lizarraga NP [address] [place], [address], [facility] 3 18:37:28 Rosacea 894139739 Active 2023 KASSIE CORRALES [address] [place] [address], [phone], [facility] 4 14:32:16 Problem Notes None recorded. Procedures Surgical History None recorded. Imaging Results Imaging Date Name Status LastModified by Organization Details LastModified Time 07/01/2020 XR, knee, 3 view completed [email or web address] [facility] Radiology Department [address] [place], [address], 08/05/2020 18:04:13 03/18/2024 exercise stress test completed [address] Radiology [address] [place], [address], 04/04/2024 12:11:08 03/17/2024 US, echocardiogram [id number] Inform ation not available 04/23/2024 17:28:36 Procedure Notes None recorded. Medical Equipment None Reported. Allergies Allergen ID Allergen Name Allergen Category Reaction Reaction Severity Criticality Documentation Date Start Date Code Code System Note Provider Name and Address Organization Details Recorded Time 2944 metformin medicatio n dizziness mild low 02/13/2024 6809 RxNorm and other side effec ts KASSIE CORRALES [address] [place] [address], [address], [facility] 4 14:16:25 Medications Name Sig Start Date Stop Date Status Note LastModified by Organization Details LastModified Time Novolin 70/30 U-100 Insulin 100 unit/mL subcutane ous suspensio n 35-40 U bid 2019 active 05/07/24 (LRB): 08/04/20 26 x [id number] x 2 vials03/07 GMC: 10/04/20 25 JLT7H64 x2 vials4/02/26 LRB: 11/04/25 MXY1U00 x 1 vials02/03 MV: 11/04/25 GAC7O88 x 2 vials 11/30/23 LRB: 10/04/25 [id number] x 2 vials DVD 4 Lot: [id number] Exp: 10/04/25 CA 08/08/23 Lot:[id number] Exp:02/055AS M [id number] Exp: 5 x2 vialsASM 05/24/23: [id number] Exp: 03/04/20 25 x2 vialsDC x2 vials lot : [id number] exp : 03/04/25A SM 03/02/23: [id number] Exp: 12/05/19 25 x2 vialsLCA 10/17/23 : [id number] exp. 5 x2 vials LCA 08/16/22 : [id number] 4 [id number] LRB 06/13/22: NZL2V53 07/05/24 x 2 vialsAA x2 vials [id number] 2 06/27/31 09/06/21 LRB: 08/2023 MUCF499 x2/ LRB- 06/2023 IPKG236 x 2 vials 2 vials 04/2023 CHUJ738 LRB2 vials 02/17/21 UOEQ367 LRB1 vial 05/26 GKKW926 ws1 vial 07/27 DKWI332 ws2 vials 07/2022 IZRR437 HR1 vial 10/2022 JWHU787 wsws 2 vials 08/27 XJXUI355 ws 2 vials RYAE418 12.05.23w s 2 vials EKCM598 12/05/23w s 2 vials UCWLSi70 01/03/24w s 2 vials LZFOB71 07/05/23w s 2 vials ZBT9E54 08/3124w s 1 vial [id number] s 2 vials [id number] [id number] 07/24/23 DO: Lot # [id number] exp: 03/04/25 x2 Not Available Not Available Not Available atorvasta tin 10 mg tablet TAKE 1 TABLET BY MOUTH EVERY DAY active Not Available Not Available No t Available azithromy tahir 250 mg tablet 09/06 completed Not Available Not Available Not Available Novolin N NPH U-100 Insulin isophane 100 unit/mL subcutane ous susp inject 30 unit by injectio n route twice each day before breakfas t and before supper. 08/13 completed Not Available Not Available Not Available clindamyc in HCl 150 mg capsule TAKE 3 CAPSULES BY MOUTH EVERY EIGHT HOURS FOR 5 DAYS 06/07 completed Not Available Not Available Not Available Minocin 100 mg capsule take 1 capsule by oral route every 12 hours 01/10 completed Not Available Not Available Not Available aspirin 81 mg tablet,de layed release TAKE 1 TABLET EVERY DAY BY ORAL ROUTE. active Not Available Not Available No t Available citalopra m 20 mg tablet take 0.5 tablet by oral route every day 01/10 completed Not Available Not Available Not Available cephalexi n 500 mg capsule TAKE 1 CAPSULE EVERY 6 HOURS BY MOUTH FOR 5 DAYS. 06/07 completed Not Available Not Available Not Available metformin 1,000 mg tablet take 1 tablet by oral route 2 times every day with morning and evening meals 03/07 completed Not Available Not Available Not Available Cipro 500 mg tablet take 1 tablet by oral route every 12 hours x 10 days 01/11 completed Not Available Not Available Not Available buspirone 10 mg tablet take 1 tablet by oral route 2 times every day 01/17 completed Not Available Not Available Not Available lisinopri l 10 mg tablet TAKE ONE TABLET BY MOUTH ONCE DAILY 02/12 completed Not Available Not Available Not Available naproxen 500 mg tablet,de layed release Take 1 tablet twice a day by oral route. 06/07 completed Not Available Not Available Not Available metronida zole 0.75 % topical cream APPLY A THIN LAYER TO THE AFFECTED AREA(S) BY TOPICAL ROUTE 2 TIMES PER DAY IN THE MORNING AND EVENING 2023 active Not Available Not Available Not Avai lable Clindagel 1 % topical gel, once daily apply by topical route every day a thin layer to the affected area(s) 01/17 completed Not Available Not Available Not Available lisinopri l 5 mg tablet TAKE 1 TABLET BY MOUTH EVERY DAY active Not Available Not Available No t Available gabapenti n 100 mg capsule TAKE 1 CAPSULE BY MOUTH 3 TIMES A DAY NEEDED. active Not Available Not Available No t Available benzoyl peroxide 5 % topical cleanser APPLY A THIN LAYER TO THE AFFECTED AREA(S) BY TOPICAL ROUTE ONCE DAILY active Not Available Not Available No t Available fluoxetin e 20 mg capsule TAKE ONE CAPSULE BY MOUTH ONCE DAILY 02/12 completed Not Available Not Available Not Available metformin ER 500 mg tablet,ex tended release 24 hr take 4 tablet by oral route every day with the evening meal 02/20 completed Not Available Not Available Not Available naproxen 500 mg tablet TAKE 1 TABLET TWICE A DAY BY ORAL ROUTE. 02/12 completed Not Available Not Available Not Available Bactrim DS 800 mg-160 mg tablet take 1 tablet BID x 5 days 03/01 completed Not Available Not Available Not Available Bactrim 400 mg-80 mg tablet take 0.5 tablet by oral route every 24 hours 09/06 completed Not Available Not Available Not Available nitrofura ntoin monohydra te/macroc rystals 100 mg capsule take 1 capsule by oral route every 12 hours with food for 10 days 03/28 completed Not Available Not Available Not Available Levemir U-100 Insulin 100 unit/mL subcutane ous solution inject 35 Units by subcutan eous route every evening; increase by 2 units until goal values 02/21 completed Not Available Not Available Not Available Clindacin ETZ 1 % topical kit Daily; may increase to BID if needed 03/07 completed Not Available Not Available Not Available Vitals Date Recorded Body weight Systolic blood pressure Diastolic blood pressure Provider Name and Address Organization Details Last Updated DateTime 09/06/2021 17810 g 153 mm[Hg] 86 mm[Hg] Riky Schroeder MD [address] [place], [address], [facility] [employer] [facility] 09/06/2021 19:26:15 Date Recorded Body weight Body mass index (BMI) Body height Respiratory rate Body temperature Oxygen saturation Oxygen saturation in Arterial blood by Pulse oximetry Heart rate Systolic blood pressure Diastolic blood pressure Provider Name and Address Organization Details Last Updated DateTime 4 46747.8 1 g 28.5 kg/m2 170.18 cm 22 /min 96.9 [degF] 99 % 99 % 82 /min 168 mm[Hg] 90 mm[Hg] Elizabeth Maxwell [facility] [employer] [facility] 4 14:02:55 Social History None recorded. Functional Status None recorded. Mental Status None recorded. Family History Nothing Reported. Medical History No medical history recorded. Gynecological HistoryNo gynecological history recorded. Obstetrics History GPAL:G 0 P 0 0 0 0 Past Encounters Encounter ID Performer Location Encounter Start Date Encounter Closed Date Diagnosis/Indication Diagnosis SNOMED-CT Code Diagnosis ICD10 Code [id number] Taj De Jesus MD [facility] [address] [place] [phone] 06/29/2020 18:47:27 07/01/2020 11:51:27 Contusion of left knee 3114281577 4819758 S80.02XA Contusion of right knee 6929806493 5912488 S80.01XA [id number] [facility] [address] [place] [address] 08/12/2020 19:30:00 08/13/2020 00:00:00 [id number] Riky Schroeder MD [facility] [address] [place] [phone] 09/06/2021 18:58:54 09/06/2021 19:59:43 Type 2 diabetes mellitus without complication 927910700 E11.9 Essential hypertension 05758615 I10 Osteoarthritis 451794330 M19.90 Depressive disorder 3548 9007 F32.A [id number] AMERICO SMITH, [facility] OFF[facility] [address] [place] [address] 12/08/2021 12:32:17 12/08/2021 13:14:20 Cellulitis of face 580580346 L03.211 [id number] [facility] [address] [place] [address] 12/22/2021 10:49:08 12/22/2021 13:33:07 Cellulitis of face 215426978 L03.211 Cellulitis 659525988 L03 .90 [id number] [facility] [address] [facility] [place] [address] 02/13/2024 13:44:44 02/13/2024 15:15:25 Palpitations 89550320 R00.2 Hypertensive disorder 38 360868 I10 Neuropathy 206370350 G62 .9 Screening for malignant neoplasm of colon 968695960 Z12.11 Complicati on due to diabetes mellitus 87665966 E11.8 Rosacea 777222511 L71.9 Health Concerns Section Related Observation LastModified by Organization Detai ls LastModified Time None Recorded Concern Status LastModified by Organization Details LastModified Time None Recorded Advance Directives Directive None Recorded Payers Encounter Date Sequence Insurance Name Policy Number Policy Nieves Covered Member ID Nieves Member ID Guarantor Name 08/12/2020 SLIDING FEE SCHEDULE - DISCOUNT Marie Maxwell 12/08/2021 SLIDING FEE SCHEDULE - DISCOUNT Marie Maxwell 12/22/2021 SLIDING FEE SCHEDULE - DISCOUNT Marie Maxwell 02/13/2024 SLIDING FEE SCHEDULE - DISCOUNT Marie Maxwell Notes Date Note Type Note Provider Name and Address Organization Details Recorded Time 09/06/2021 text/html HPI Notes: ama d e casa, knees bother her, imaging in the past, numbness in feet, no sores, occ burning, rash where she had C/S, diabetic control unclear, taking 35-40 units of 70/30 a day, mild depression in the past now with poor sleep, negative thoughts, not suicidal, no counselling Riky Schroeder MD [address] [place], [address], [facility] 09/07/2021 11:08:45 12/08/2021 text/html HPI Notes: Pt presents with eye irritation and recurrence of facial rash. She had 1-2 years ago and was treated successfully with clindamycin. She wakes up with crusty eyes. Speaks Belarusian well. She also notes am headaches. Upon further investigation, acknowledges drinking multiple monster energy drinks daily. KASSIE CORRALES [address] [facility] [place] [place], [address], [facility] [employer] 12/10/2021 08:09:37 12/22/2021 text/html HPI Notes: Phone call performed with Belarusian-speaking patient. She would like to switch to a different medication for her facial cellulitis KASSIE CORRALES [address] [facility] [place], [address], [facility] [employer] 12/23/2021 15:18:11 02/13/2024 text/html HPI Notes: Pt previously seen by me a couple times for facial cellulitis; here to follow-up on labs which do not appear to have been performed. She has a history of IDDM, HTN, and depression. She is taking 70/30 30-40 Units bid. No hypoglycemia. BGs-has not checked for 3 months; has enough supplies/glucomete r. Has some palpitations and shortness of breath/chest heaviness with activity. Feels sick just before menstruation. Periods last 4-5 days and still gets monthly. Thinks she maybe in nav-menopause given some of the symptoms. Opth: Yesterday (02/12/24), has retinopathy Dental: 6 months ago She has recently been followed by: No one Labs reviewed: No labs found BP: 153/86; not taking anything Depression/Anxiety : Doing ok; would like try without fluoxetine Smoker? For only 1 year 20 years go Alcohol/drug use: 6-8/week-plans on cutting down on her own Pap: Due Mammogram: Due FIT: Due Exercise/Diet: Unemployed; minimal Dental: Advised to get on wait list CVD risk reduction statin (40-75 with 1 risk factor or calculated risk of event >10%): Will do stress test, echo given symptoms, start statin KASSIE CORRALES [address] [facility] [place], [address], [facility] [employer] 02/13/2024 15:01:59 OBGyn Episode No OBEpisode recorded.
--- OUTSIDE RECORDS SUMMARY | 2024-07-29 11:39 | XMS_ITS | Encounter Summary ---
Author Organization [facility] Address [address] [place] [address] Care Team Providers Care Marine Resource Economist Name Role Phone Elsewhere, Pcp Primary Care Provider Unavailabl e Encounter Details Date Type Department Care Team (Late st Contact Info) Description 06/09/2024 Clinical Communication Department of Ophthalmology in [place], [place] [address] [place] [phone] Melanie Adams O.D. [address] [place] [address] Social History Tobacco Use Types Packs/Day Years Used Date Smoking Tobacco: Never Assessed [facility] Utilities Answer Date Recorded In the past [...] your living situation today? I have a [facility] place to live 07/04/2024 Sex and Gender Information Value Date Recorded Sex Assigned at Female 07/04/2024 1:43 PM CDT Gender Identity Female 07/04/2024 1:43 PM CDT Sexual Orientation Straight 07/04/2024 1: 43 PM CDT documented as of this encounter Miscellaneous Notes * Telephone Encounter - Yarely Rowe - 06/11/2024 11:09 AM CDT Pt called in. Advised. States that she was referred originally to [facility] who sent her to [facility] who then sent her to us and that she has been waiting for this appt over 1 mo. I did reiterate message and she is aware that [facility] will be reaching out to her. I also gave Pt experience # for her to call. Thank you. * Telephone Encounter - Karma Mejia CHI - 06/11/2024 10:18 AM CDT Closing task, per Eye Clinic scheduling will await further contact from patient to advise. Per VM left for pt advised that we were calling to advise of change regarding appointment. Thanks. * Telephone Encounter - Karma Mejia CHI - 06/10/2024 4:14 PM CDT Attempted calling patient to advise her of message from Eye Clinic Scheduling: We need to cancel the appt for tomorrow in [place]. The patient needs to be seen by a Retinal Specialist at [place]. I have contacted that office and they will reach out to Marie when they have an appointment and can scheduled her. * Telephone Encounter - Karma Mejia CHI - 06/10/2024 11:17 AM CDT Patient returned our call and has been advised of / agrees to this visit. Thanks. * Telephone Encounter - Karma Mejia CHI - 06/10/2024 9:29 AM CDT Appointment has been scheduled with Dr. Adams in [place] on 06/11/24 at 10:30 am. Need to contact patient to advise. * Telephone Encounter - Karma Mejia CHI - 06/09/2024 11:42 AM CDT Please note, I reached patient by phone but there was no answer in Eye Clinic scheduling by phone, hold time in excess of 6 minutes. Please schedule the appointment and route task to Language Services and we will call patient. It is not possible for us to continue to stay on hold for scheduling. Thanks. * Telephone Encounter - Karma Mejia CHI - 06/09/2024 11:35 AM CDT Contacted patient, no answer in Ophthalmology scheduling, hold time in excess of 6 minutes. Please schedule this appointment for soonest date available per patient's request (states that's her insurance may term at the end of this month). Please return task to Language Services to advise patient, thanks. documented in this encounter Plan of Treatment Upcoming Encounters Date Type Department Care Team (Late st Contact Info) Description 08/01/2024 1:30 PM CDT Ancillary Procedure Department of Ophthalmology in [place], [place] [address] [place] [phone] Rere Nair M.D., Ph.D. [address] [place] [phone] 08/01/2024 2:00 PM CDT Procedure visit Department of Ophthalmology in [place], [place] [address] [place] [address] Rere Nair M.D., Ph.D. [address] [place] [phone] 08/01/2024 2:15 PM CDT Ancillary Procedure Department of Ophthalmology in [place], [place] [address] [place] [phone] Rere Nair M.D., Ph.D. [address] [place] [address] 08/01/2024 2:45 PM CDT Ancillary Procedure Department of Ophthalmology in [address] [address] Rere Nair M.D., Ph.D. [address] [place] [phone] 08/01/2024 3:00 PM CDT Office Visit Department of Ophthalmology in [address] [address] Rere Nair M.D., Ph.D. [address] [place] [phone] documented as of this encounter Visit Diagnoses Not on filedocumented in this encounter Care Teams Marine Resource Economist Relationship Specialty Start Date End Date Elsewhere, Pcp PCP - General Internal Medicine 07/03/24 documented as of this encounter
--- OUTSIDE RECORDS SUMMARY | 2024-07-29 11:39 | XMS_ITS | Encounter Summary ---
Author Organization [facility] Address [address] [place] [address] Care Team Providers Care Apple Peeler Operator Name Role Phone Unavailable Primary Care Provider Unavailabl e Encounter Details Date Type Department Care Team (Late Contact Info) Description 06/24/2024 2:15 PM CDT Ancillary Procedure Department of Ophthalmology in [place], [place] [address] [place] [phone] Rere Nair M.D., Ph.D. [address] [place] [phone] Social History Tobacco Use Types Packs/Day Years [...] CDT Ancillary Procedure Department of Ophthalmology in [place], [place] [address] [place] [phone] Rere Nair M.D., Ph.D. [address] [place] [phone] 08/01/2024 2:00 PM CDT Procedure visit Department of Ophthalmology in [place], [place] [address] [place] [phone] Rere Nair M.D., Ph.D. [address] [place] [phone] 08/01/2024 2:15 PM CDT Ancillary Procedure Department of Ophthalmology in [place], [place] [address] [place] [phone] Rere Nair M.D., Ph.D. [address] [place] [phone] 08/01/2024 2:45 PM CDT Ancillary Procedure Department of Ophthalmology in [place], [place] [address] [place] [phone] Rere Nair M.D., Ph.D. [address] [place] [phone] 08/01/2024 3:00 PM CDT Office Visit Department of Ophthalmology in [address] [phone] Rere Nair M.D., Ph.D. [address] [place] [phone] documented as of this encounter Procedures Procedure Name Priority Date/Time Associated Diagnosis Comments ANGIOGRAPHY - OU - BOTH EYES Routine 06/24/2024 3:49 PM CDT Hemorrhage Vitreous Right (HCC) documented in this encounter Results * Fluorescein Angiography - OU - Both Eyes (06/24/2024 3:49 PM CDT) [facility] OPHTHALMOLOGY IMAGING EXAM - 06/24/2024 10:59 PM CDT Right Eye Dye used is fluorescein. Fluorescein dose given is normal. Field of view is ultra-wide view. Left Eye Dye used is fluorescein. Fluorescein dose given is normal. Field of view is ultra-wide view. Notes OPTOS FA completed - LSA See patient's clinical encounter for interpretation. Rere Nair M.D., Ph.D. OPHTH PHOT OGRAPHY OPHTHALMOLOGY IMAGING EXAM documented in this encounter Visit Diagnoses Not on filedocumented in this encounter
--- OUTSIDE RECORDS SUMMARY | 2024-07-29 11:39 | XMS_ITS | Encounter Summary ---
Author Organization [facility] Address [address] [place] [address] Care Team Providers Care Underwriting Support Specialist Name Role Phone Unavailable Primary Care Provider Unavailabl e Encounter Details Date Type Department Care Team (Latest Contact Info) Description 06/11/2024 Clinical Communication Department of Ophthalmology in [place], [place] [address] [place] [phone] Rere Nair M.D., Ph.D. [address] [place] [phone] Social History Tobacco Use Types Packs/Day Years [...] CDT Ancillary Procedure Department of Ophthalmology in [place], [place] [address] [place] [phone] Rere Nair M.D., Ph.D. [address] [place] [phone] 08/01/2024 2:00 PM CDT Procedure visit Department of Ophthalmology in [place], [place] [address] [place] [phone] Rere Nair M.D., Ph.D. [address] [place] [phone] 08/01/2024 2:15 PM CDT Ancillary Procedure Department of Ophthalmology in [place], [place] [address] [place] [phone] Rere Nair M.D., Ph.D. [address] [place] [phone] 08/01/2024 2:45 PM CDT Ancillary Procedure Department of Ophthalmology in [place], [place] [address] [place] [phone] Rere Nair M.D., Ph.D. [address] [place] [phone] 08/01/2024 3:00 PM CDT Office Visit Department of Ophthalmology in [place], [place] [address] [place] [phone] Rere Nair M.D., Ph.D. [address] [place] [phone] documented as of this encounter Visit Diagnoses Not on filedocumented in this encounter
--- OUTSIDE RECORDS SUMMARY | 2024-07-29 11:39 | XMS_ITS | Encounter Summary ---
Author Organization [facility] Address [address] [place] [address] Care Team Providers Care Mobile Therapist Name Role Phone Unavailable Primary Care Provider Unavailabl e Encounter Details Date Type Department Care Team (Latest Contact Info) Description 06/24/2024 2:00 PM CDT Procedure visit Department of Ophthalmology in [place], [place] [address] [place] [phone] Rere Nair M.D., Ph.D. [address] [place] [phone] Wilmer Tao, C.O.A. [address] [place] [phone] Hemorrhage Vitreous Right (HCC) Social History Tobacco [...] as of this encounter Progress Notes * Wilmer Tao, C.O.A. - 06/24/2024 2:00 PM CDT Patient was assessed for Angiogram. Verified education and informed consent has been completed. Patient fits discharge criteria; patient sent to have IV removed. Dr. Nair is the authorizing prescriber who directed the protocol. Patient's creatinine level is Lab Results Component Value Date CREATININE 1.05 06/30/2019 CREATPOC 0.80 05/01/2024 Adverse reaction noted: none. documented in this encounter Plan of Treatment Upcoming Encounters Date Type Department Care Team (Late st Contact Info) Description 08/01/2024 1:30 PM CDT Ancillary Procedure Department of Ophthalmology in [place], [place] [address] [place] [phone] Rere Nair M.D., Ph.D. [address] [place] [phone] 08/01/2024 2:00 PM CDT Procedure visit Department of Ophthalmology in [place], [place] [address] [place] [phone] Rere Nair M.D., Ph.D. [address] [place] [phone] 08/01/2024 2:15 PM CDT Ancillary Procedure Department of Ophthalmology in [place], [place] [address] [place] [phone] Rere Nair M.D., Ph.D. [address] [place] [phone] 08/01/2024 2:45 PM CDT Ancillary Procedure Department of Ophthalmology in [place], [place] [address] [place] [phone] Rere Nair M.D., Ph.D. [address] [place] [phone] 08/01/2024 3:00 PM CDT Office Visit Department of Ophthalmology in [place], [place] [address] [place] [address] Rere Nair M.D., Ph.D. [address] [place] [phone] documented as of this encounter Procedures Procedure [...] encounter Visit Diagnoses Diagnosis Hemorrhage Vitreous Right (HCC) documented in this encounter Administered Medications Active Administered Medications - up to 3 most recent administrations Medication Order MAR Action Action Date Dose Rate Site sodium chloride 0.9 % injection 3 mL 3 mL, intravenous, As needed, line care, As needed for line care, Peripheral Intravenous Catheter and Rapid Infusion Catheter, Starting on Sun06/11/24 at 1328 Given 06/24/2024 3:18 PM CDT 3 mL Inactive Administered Medications - up to 3 most recent administrations Medication Order MAR Action Action Date Dose Rate Site fluorescein 100 mg/mL (10 %) injection 500 mg 500 mg, intravenous, Once in imaging, contrast, Starting on Sun06/11/24 at 1328, For 1 dose Given 06/24/2024 3:17 PM CDT 500 mg documented in this encounter
--- OUTSIDE RECORDS SUMMARY | 2024-07-29 11:39 | XMS_ITS | Encounter Summary ---
Author Organization [facility] Address [address] [place] [address] Care Team Providers Care Rope Walker Name Role Phone Unavailable Primary Care Provider Unavailabl e Reason for Referral * Outpatient (Routine) - Closed Specialty Diagnoses / Procedures Referred By Contac t Referred To Contact Ophthalmology Rere Nair M.D., Ph.D. [address] [place] [phone] [facility] Referral ID Status Reason Start Date Expiration Date Visits Re quested Visits Authorized [id number] Closed 06/25/2024 12/25/2025 1 1 * Outpatient (Routine) - Authorized Specialty Diagnoses / Procedures Referred By Contac t Referred To Contact Ophthalmology Rere Nair M.D., Ph.D. [address] [place] [phone] [facility] Referral ID Status Reason Start Date Expiration Date V isits Requested Visits Authorized [id number] Authorized 06/25/2024 12/25/2025 1 1 * Outpatient (Routine) - Closed Specialty Diagnoses / Procedures Referred By Contac t Referred To Contact Ophthalmology Rere Nair M.D., Ph.D. [address] [place] [phone] [facility] Referral ID Status Reason Start Date Expiration Date Visits Re quested Visits Authorized [id number] Closed 06/25/2024 12/25/2025 1 1 Encounter Details Date Type Department Care Team (Late Contact Info) Description 06/25/2024 Orders Only Department of Ophthalmology in [place], [place] [address] [place] [phone] Enid Sawant C.O.A. [address] [place] [phone] Hemorrhage Vitreous Right (HCC) (Primary Dx) Social [...] CDT Ancillary Procedure Department of Ophthalmology in [place], [place] [address] [place] [phone] Rere Nair M.D., Ph.D. [address] [place] [phone] 08/01/2024 2:00 PM CDT Procedure visit Department of Ophthalmology in [place], [place] [address] [place] [phone] Rere Nair M.D., Ph.D. [address] [place] [phone] 08/01/2024 2:15 PM CDT Ancillary Procedure Department of Ophthalmology in [place], [place] [address] [place] [phone] Rere Nair M.D., Ph.D. [address] [place] [phone] 08/01/2024 2:45 PM CDT Ancillary Procedure Department of Ophthalmology in [place], [place] [address] [place] [phone] Rere Nair M.D., Ph.D. [address] [place] [phone] 08/01/2024 3:00 PM CDT Office Visit Department of Ophthalmology in [place], [place] [address] [place] [phone] Rere Nair M.D., Ph.D. [address] [place] [phone] Scheduled Orders Name Type Priority Associated Diagnoses Orde r Schedule Optical Coherence Tomography - Macula/Retina - OU - Both Eyes Ophthalmology Routine Hemorrhage Vitreous Right (HCC) Expected: 08/07/2024, Expires: 09/25/2025 Scheduled Referrals Name Type Priority Associated Diagnoses Order Schedule Ophthalmology Post Op (clinic) Outpatient Referral Routine Expected: 07/09/2024, Expires: 09/25/2025 Ophthalmology Post Op (clinic) Outpatient Referral Routine Expected: 08/07/2024 (Approximate), Expires: 09/25/2025 Ophthalmology Post Op (clinic) Outpatient Referral Routine Expected: 07/15/2024 (Approximate), Expires: 09/25/2025 documented as of this encounter Visit Diagnoses Diagnosis Hemorrhage Vitreous Right (HCC)- Primary documented in this encounter
--- OUTSIDE RECORDS SUMMARY | 2024-07-29 11:39 | XMS_ITS | Encounter Summary ---
Author Organization [facility] Address [address] [place] [address] Care Team Providers Care Beater Lead Name Role Phone Unavailable Primary Care Provider Unavailabl e Encounter Details Date Type Department Care Team (Late st Contact Info) Description 04/30/2024 [facility] [address] [phone] Bob Velasco M.D. [address] [address] Hemorrhage Vitreous Right (HCC) (Primary Dx) Social History Tobacco Use Types Packs/Day Years Used Date Smoking Tobacco: Never Assessed Nutrition Answer Date Recorded Nutrition: EVOO Fat Source Unknown 01/10 Nutrition: Servings of Fruits/Vegetables per Day Not on file 01/10/2021 Dental Answer Date Recorded Dental: Regular Dentist Unknown 01/14/20 21 Sex and Gender Information Value Date Recorded Sex Assigned at Female 07/04/2024 1:43 PM CDT Gender Identity Female 07/04/2024 1:43 PM CDT Sexual Orientation Straight 07/04/2024 1: 43 PM CDT documented as of this encounter Plan of Treatment Upcoming Encounters Date Type Department Care Team (Late st Contact Info) Description 08/01/2024 1:30 PM CDT Ancillary Procedure Department of Ophthalmology in [place], [place] [address] [place] [phone] Rere Nair M.D., Ph.D. [address] [place] [phone] 08/01/2024 2:00 PM CDT Procedure visit Department of Ophthalmology in [place], [place] [address] [place] [phone] Rere Nair M.D., Ph.D. [address] [place] [phone] 08/01/2024 2:15 PM CDT Ancillary Procedure Department of Ophthalmology in [place], [place] [address] [place] [phone] Rere Nair M.D., Ph.D. [address] [place] [phone] 08/01/2024 2:45 PM CDT Ancillary Procedure Department of Ophthalmology in [place], [place] [address] [place] [phone] Rere Nair M.D., Ph.D. [address] [place] [phone] 08/01/2024 3:00 PM CDT Office Visit Department of Ophthalmology in [address] [phone] Rere Nair M.D., Ph.D. [address] [place] [phone] documented as of this encounter Visit Diagnoses Diagnosis Hemorrhage Vitreous Right (HCC)- Primary documented in this encounter
--- OUTSIDE RECORDS SUMMARY | 2024-07-29 11:39 | XMS_ITS | Encounter Summary ---
Author Organization [facility] Address [address] [place] [address] Care Team Providers Care Captain Airline Pilot Name Role Phone Unavailable Primary Care Provider Unavailabl e Encounter Details Date Type Department Care Team (Latest Contact Info) Description 06/12/2024 Clinical Communication Department of Ophthalmology in [place], [place] [address] [place] [phone] Rere Nair M.D., Ph.D. [address] [place] [phone] Social History Tobacco Use Types Packs/Day Years [...] CDT Ancillary Procedure Department of Ophthalmology in [place], [place] [address] [place] [phone] Rere Nair M.D., Ph.D. [address] [place] [phone] 08/01/2024 2:00 PM CDT Procedure visit Department of Ophthalmology in [place], [place] [address] [place] [phone] Rere Nair M.D., Ph.D. [address] [place] [phone] 08/01/2024 2:15 PM CDT Ancillary Procedure Department of Ophthalmology in [place], [place] [address] [place] [phone] Rere Nair M.D., Ph.D. [address] [place] [phone] 08/01/2024 2:45 PM CDT Ancillary Procedure Department of Ophthalmology in [place], [place] [address] [place] [phone] Rere Nair M.D., Ph.D. [address] [place] [phone] 08/01/2024 3:00 PM CDT Office Visit Department of Ophthalmology in [place], [place] [address] [place] [phone] Rere Nair M.D., Ph.D. [address] [place] [phone] documented as of this encounter Visit Diagnoses Not on filedocumented in this encounter
--- OUTSIDE RECORDS SUMMARY | 2024-07-29 11:39 | XMS_ITS | Encounter Summary ---
Author Organization [facility] Address [address] [place] [address] Care Team Providers Care Lab Coordinator Name Role Phone Unavailable Primary Care Provider Unavailabl e Reason for Referral * Outpatient (Routine) - Closed Specialty Diagnoses / Procedures Referred By Zev garner Referred To Contact Anesthesiology Diagnoses Hemorrhage Vitreous Right (HCC) Rere Nair M.D., Ph.D. 200 [place] [phone] [facility] Referral ID Status Reason Start Date Expiration Date Visits Re quested Visits Authorized [id number] Closed 06/25/2024 12/25/2025 1 1 Reason for Visit * Appointment Request (Routine) - Closed Specialty Diagnoses / Procedures Referred By Zev garner Referred To Contact Ophthalmology Diagnoses Hemorrhage Vitreous Right (HCC) Bob Velasco M.D. [address] [address] Referral ID Status Reason Start Date Expiration Date Visits Re quested Visits Authorized [id number] Closed 06/10/2024 06/10/2025 1 1 Encounter Details Date Type Department Care Team (Latest Contact Info) Description 06/25/2024 11:00 AM CDT Comprehensive Visit Department of Ophthalmology in [place], [place] 200 [place] [phone] Rere Nair M.D., Ph.D. [address] [place] [phone] Hemorrhage Vitreous Right (HCC) (Primary Dx) Social [...] Notes * Rere Nair M.D., Ph.D. - 06/25/2024 11:00 AM CDT Images from the original note were not included. Retina Clinic Progress Note, [facility] at [place], [place] Brief Ocular History Vitreous Hemorrhage RIGHT eye Proliferative Diabetic retinopathy BOTH eyes History of Present Illness The patient, with a history of diabetic retinopathy, presents with persistent blood in the right eye. The symptom has been bothersome and has led to a slow recovery of eyesight. The patient also has diabetic retinopathy in the left eye, which needs to be monitored closely. Ocular Meds None Pertinent Past Medical, Social, & Family History Driving: no issues Smoking history: Former with 2 pack year history Family history: non-contributory Medical history: Type 2 Diabetes Mellitus Ophthalmic Imaging Optical Coherence Tomography, 06/25/2024 Right eye: poor signal widened foveal depression, epiretinal membrane with irregular contour, traceintraretinal fluid, hyaloid visible Left eye: widened foveal depression, epiretinal membrane with irregular contour, trace intraretinalfluid with exudation Other Testing: Right Eye Left Eye Comments Fundus photography Superior vitreous hemorrhage, tractional appearance over nerve and nasally Mild vessel attenuation,inferotemporal white without pressure Fluorescein angiography Superior scattered blockage, scattered microaneurysms, mild tortuosity scattered microaneurysms, moderate capillary dropout including temporal macula Fluorescein angiography 06/25/2024 See [facility] ophthalmology module for exam information. Assessment Right Eye Vitreous Hemorrhage Persistent blood in the right eye causing visual disturbance. Discussed the benefits and risks of vitrectomy surgery with the patient. The surgery will involve removal of the vitreous gel and application of laser to prevent future bleeding. -Plan for vitrectomy surgery with full laser application and air vs gas right eye -Post-operative care will include steroid eye drops four times a day, tapered over the first few weeks, an antibiotic for the first week to prevent infection, and dilation of the eye for the first week. -Post-operative restrictions include no heavy lifting, bending, or straining for two weeks. -Follow-up appointments will be day one, week one, and month one post-surgery. Discussed with patient that pars plana vitrectomy is a surgical approach that is used to treat vitreous hemorrhages. Specialized instruments and techniques are used through small incisions in the eyewall at the part called the pars plana. The gel-like vitreous is removed with a miniature handheld cutting device and replaced with a special saline solution similar to the liquid being removed from the eye. A surgical microscope and fiberoptic light source is used to illuminate the inside of the eye. The procedure is expected to take about 1-2 hours but may take longer in complex cases or when combined with other procedure. In some instances gas, air or oil is placed. The surgery is done on anoutpatient basis. Discussed that the risks of surgery include infection, bleeding, cataract, glaucoma, and detachment or recurrent detachment of the retina and that any of these complications could result in severe visual loss or even loss of the eye itself. Left Eye Diabetic Retinopathy Noted diabetic retinopathy in the left eye that needs close monitoring. -Continue with planned laser intervention in a few weeks locally to prevent the development of abnormal blood vessels. -Regular dilated exams every six months to monitor for new abnormal blood vessels. Bilateral Cataracts Mild cataracts noted in both eyes, which will worsen over time and specifically after surgery in the right eye. -Monitor cataracts and plan for local cataract surgery when needed in the future. Plan: 06/25/2024 Right eye vitreous hemorrhage: Discussed option of continuing injections and monitoring vs pars plana vitrectomy and endolaser/air/Avastin right eye for vitreous hemorrhage Panretinal photocoagulation left eye to be performed locally next month, per pt. (I will send message to local team). This is reasonable given vitreous hemorrhage in right eye and significant non-perfusion in left eye related to ischemia. Call for decreased vision, increased distortion, increased pain, new floaters, or flashing lights Surgery Sign Up Eye: Right Diagnosis: vitreous hemorrhage Procedure: 25G pars plana vitrectomy, endolaser, air, possible gas Urgency: Within 1 month Special equipment/needs: intravitreal Avastin Anesthesia: Mac Duration: 60-90min Post-op regimen: Prednisolone QID, Ofloxacin QID, Atropine BID right eye Lens status: Phakic Language: Swedish Pre-op Work-up: JOSE DAVID NPO: 8hr prior to surgery start time Follow-up To OR then post-op appts (day 1, week 1, month 1) Rere Nair MD, PhD Ceramic Engineer Clinic Clerk Vitreoretinal Surgery & Diseases [facility], Department of Ophthalmology [address] [place] [phone] Letters to: Dr. Bob Velasco (Referring provider) documented in this encounter Miscellaneous Notes * Assessment & Plan Note - Jefry Ch M.D. - 06/20/2024 2:18 PM CDT Associated Problem(s): Hemorrhage Vitreous Right (HCC) Seen at [facility]. Has had 4 Vabysmo injections without clearance, last on 04/25/2024. documented in this encounter Plan of Treatment Upcoming Encounters Date Type Department Care Team (Late st Contact Info) Description 08/01/2024 1:30 PM CDT Ancillary Procedure Department of Ophthalmology in [address] [phone] Rere Nair M.D., Ph.D. [address] [place] [phone] 08/01/2024 2:00 PM CDT Procedure visit Department of Ophthalmology in [address] [phone] Rere Nair M.D., Ph.D. [address] [place] [phone] 08/01/2024 2:15 PM CDT Ancillary Procedure Department of Ophthalmology in [place], [place] [address] [place] [phone] eRre Nair M.D., Ph.D. [address] [place] [phone] 08/01/2024 2:45 PM CDT Ancillary Procedure Department of Ophthalmology in [place], [place] [address] [place] [phone] Rere Nair M.D., Ph.D. [address] [place] [phone] 08/01/2024 3:00 PM CDT Office Visit Department of Ophthalmology in [place], [place] [address] [place] [phone] Rere Nair M.D., Ph.D. [address] [place] [phone] Scheduled Referrals Name Type Priority Associated Diagnoses Order Schedule Preoperative Evaluation JOSE DAVID consult (clinic) Outpatient Referral Routine Hemorrhage Vitreous Right (HCC) Expected: 06/25/2024 (Approximate), Expires: 06/25/2027 documented as of this encounter Results * (ABNORMAL) Hemoglobin A1c (06/25/2024 11:49 AM [...] Rere Nair M.D., Ph.D. LAB BLOOD ADD-ON [facility] [address] [place] [address], [facility] DTL [facility] [address] [place] [address] documented in this encounter Visit Diagnoses Diagnosis Hemorrhage Vitreous Right (HCC)- Primary documented in this encounter
--- OUTSIDE RECORDS SUMMARY | 2024-07-29 11:39 | XMS_ITS | Encounter Summary ---
Author Organization [facility] Address [address] [place] [address] Care Team Providers Care Visual Associate Name Role Phone Unavailable Primary Care Provider Unavailabl e Encounter Details Date Type Department Care Team (Late st Contact Info) Description 06/24/2024 3:20 PM CDT Ancillary Procedure Department of Ophthalmology Social History [...] CDT Ancillary Procedure Department of Ophthalmology in [place], [place] [address] [place] [phone] Rere Nair M.D., Ph.D. [address] [place] [phone] 08/01/2024 2:00 PM CDT Procedure visit Department of Ophthalmology in [place], [place] [address] [place] [phone] Rere Nair M.D., Ph.D. [address] [place] [phone] 08/01/2024 2:15 PM CDT Ancillary Procedure Department of Ophthalmology in [place], [place] [address] [place] [phone] Rere Nair M.D., Ph.D. [address] [place] [phone] 08/01/2024 2:45 PM CDT Ancillary Procedure Department of Ophthalmology in [place], [place] [address] [place] [phone] Rere Nair M.D., Ph.D. [address] [place] [phone] 08/01/2024 3:00 PM CDT Office Visit Department of Ophthalmology in [place], [place] [address] [place] [phone] Rere Nair M.D., Ph.D. [address] [place] [phone] documented as of this encounter Procedures Procedure Name Priority Date/Time Associated Diagnosis Comments OPHTHALMOLOGY IMAGE EXAM Routine 06/24/2024 3:20 PM CDT documented in this encounter Results * [employer]-Ophthalmology Image Exam (06/24/2024 3:20 PM CDT) 06/24/2024 3:20 PM CDT Narrative IIMS - 06/24/2024 3:59 PM CDT This order has been created [...]
--- OUTSIDE RECORDS SUMMARY | 2024-07-29 11:39 | XMS_ITS | Encounter Summary ---
Author Organization [facility] Address [address] [place] [address] Care Team Providers Care Licensed Certified Orthotist Name Role Phone Unavailable Primary Care Provider Unavailabl e Encounter Details Date Type Department Care Team (Latest Contact Info) Description 06/25/2024 11:38 AM CDT - 06/25/2024 11:59 PM CDT Hospital Encounter Department of Laboratory Medicine and Pathology, [facility] in [place], [place] [address] [place] [phone] Rere Nair M.D., Ph.D. [address] [place] [phone] Hemorrhage Vitreous Right (HCC) Discharge Disposition: Home or Self Care Social [...] PM CDT documented as of this encounter Medications at Time of Discharge [...] 07/09/2024 07/21/2024 documented as of this encounter Plan of Treatment Upcoming Encounters Date Type Department Care Team (Late st Contact Info) Description 08/01/2024 1:30 PM CDT Ancillary Procedure Department of Ophthalmology in [address] [phone] Rere Nair M.D., Ph.D. [address] [place] [phone] 08/01/2024 2:00 PM CDT Procedure visit Department of Ophthalmology in [address] [phone] Rere Nair M.D., Ph.D. [address] [place] [phone] 08/01/2024 2:15 PM CDT Ancillary Procedure Department of Ophthalmology in [address] [phone] Rere Nair M.D., Ph.D. [address] [place] [phone] 08/01/2024 2:45 PM CDT Ancillary Procedure Department of Ophthalmology in [address] [phone] Rere Nair M.D., Ph.D. [address] [place] [phone] 08/01/2024 3:00 PM CDT Office Visit Department of Ophthalmology in [place], [place] [address] [place] [phone] Rere Nair M.D., Ph.D. [address] [place] [phone] documented as of this encounter Procedures Procedure Name Priority Date/Time Associated Diagnosis Comments HEMOGLOBIN A1C, B Routine 06/25/2024 11: 49 AM CDT Hemorrhage Vitreous Right (HCC) documented in this encounter Results * (ABNORMAL) Hemoglobin A1c [...] Rere Nair M.D., Ph.D. LAB BLOOD ADD-ON [facility] 200 [place] [address], [place] DTL [facility] 200 [place] [address] documented in this encounter Visit Diagnoses Diagnosis Hemorrhage Vitreous Right (HCC) documented in this encounter
--- OUTSIDE RECORDS SUMMARY | 2024-07-29 11:39 | XMS_ITS | Encounter Summary ---
Author Organization [facility] Address [address] [place] [address] Care Team Providers Care Protection Mgr Name Role Phone Unavailable Primary Care Provider Unavailabl e Encounter Details Date Type Department Care Team (Late Contact Info) Description 06/25/2024 Episode Changes Department of Ophthalmology in [address] [place] [phone] Gale Martínez Social History Tobacco Use Types Packs/Day Years [...] CDT Ancillary Procedure Department of Ophthalmology in [address] [place] [phone] Rere Nair M.D., Ph.D. [address] [place] [phone] 08/01/2024 2:00 PM CDT Procedure visit Department of Ophthalmology in [address] [place] [phone] Rere Nair M.D., Ph.D. [address] [place] [phone] 08/01/2024 2:15 PM CDT Ancillary Procedure Department of Ophthalmology in [address] [place] [phone] Rere Nair M.D., Ph.D. [address] [place] [phone] 08/01/2024 2:45 PM CDT Ancillary Procedure Department of Ophthalmology in [address] [place] [phone] Rere Nair M.D., Ph.D. [address] [place] [phone] 08/01/2024 3:00 PM CDT Office Visit Department of Ophthalmology in [address] [phone] Rere Nair M.D., Ph.D. [address] [place] [phone] documented as of this encounter Visit Diagnoses Not on filedocumented in this encounter
--- OUTSIDE RECORDS SUMMARY | 2024-07-29 11:39 | XMS_ITS | Encounter Summary ---
Author Organization [facility] Address [address] [place] [address] Care Team Providers Care Military Analyst Name Role Phone Unavailable Primary Care Provider Unavailabl e Encounter Details Date Type Department Care Team (Latest Contact Info) Description 06/24/2024 1:30 PM CDT Ancillary Procedure Department of Ophthalmology in [place], [place] [address] [place] [phone] Rere Nair M.D., Ph.D. [address] [place] [phone] Hemorrhage Vitreous Right (HCC) Social History Tobacco [...] CDT Ancillary Procedure Department of Ophthalmology in [place], [place] [address] [place] [phone] Rere Nair M.D., Ph.D. [address] [place] [phone] 08/01/2024 2:00 PM CDT Procedure visit Department of Ophthalmology in [place], [place] [address] [place] [phone] Rere Nair M.D., Ph.D. [address] [place] [phone] 08/01/2024 2:15 PM CDT Ancillary Procedure Department of Ophthalmology in [place], [place] [address] [place] [phone] Rere Nair M.D., Ph.D. [address] [place] [phone] 08/01/2024 2:45 PM CDT Ancillary Procedure Department of Ophthalmology in [address] [phone] Rere Nair M.D., Ph.D. [address] [place] [phone] 08/01/2024 3:00 PM CDT Office Visit Department of Ophthalmology in [address] [phone] Rere Nair M.D., Ph.D. [address] [place] [phone] documented as of this encounter Procedures Procedure Name Priority Date/Time Associated Diagnosis Comments OPTICAL COHERENCE TOMOGRAPHY - MACULA/RETINA - OU - BOTH EYES Routine 06/24/2024 5:13 PM CDT Hemorrhage Vitreous Right (HCC) documented in this encounter Results * Optical Coherence Tomography - Macula/Retina - OU - Both Eyes (06/24/2024 5:13 PM CDT) Narrative OPHTHALMOLOGY IMAGING EXAM - 06/24/2024 10:59 PM CDT Right Eye Reliability was good. OCT device used was Spectralis . Left Eye Reliability was good. OCT device used was Spectralis . Notes See patient's clinical encounter for interpretation. Rere Nair M.D., Ph.D. [facility] O[facility] documented in this encounter Visit Diagnoses Diagnosis Hemorrhage Vitreous Right (HCC) documented in this encounter
--- OUTSIDE RECORDS SUMMARY | 2024-07-29 11:39 | XMS_ITS | Clinical Summary ---
Author Organization [facility] Address [place], [place] [address] Care Team Providers Care Dna Analyst Name Role Phone Darryl Richmond MD Unavailable [...] day. 1 Device prn 11/06/2013 Active Insulin Aspers, Disposable, (NOVOFINE 32) 32 x 1/4 Indications:Type II or unspecified type diabetes mellitus without mention of complication, not stated as uncontrolled For administering insulin at home. 100 Each 3 02/24/2015 Active blood sugar diagnostic (CONTOUR NEXT STRIPS) stripIndications:Ty pe II or unspecified type diabetes mellitus without mention of complication, not stated as uncontrolled Dispense test strips covered by the patient insurance. Test 4 times per day. 400 Each 2 02/24/2015 Active insulin nph-regular (NOVOLIN 70/30 U-100 INSULIN) 100 unit/mL (70-30) injection Inject 30-40 Units subcutaneous 2 times daily before meals. 10 mL 12/02/2019 Active Active Problems Problem Noted Date Diagnosed Date Diabetic nephropathy 08/13/2014 Depression 08/13/2014 Delivery by elective section 04/10/2014 Status post repeat low transverse secti on 04/10/2014 History of delivery x2, currently pregn ant 09/18/2013 AMA (advanced maternal age) multigravida 35+ Supervision of other high-risk (V23.89) 09/12/2013 Overview (11/24/2013): NEXT VISIT ALERTS :Needs work excuse note [...] hematuria/proteinuria, left renal atrophy TESTING PLANS: ZAINAB: [facility] 09/18/2013, op report from 2003 (LST X 2) scanned 09/30/13 REFERRING PHYSICIAN: Dr Snehal Mendoza, [place] SPECIALISTS: PDC COSTING MANAGER: CARE COORDINATION: CONSULTS: PROCEDURES: MEDS: Vitamin D plans: drawn 09/18/2013 = 14.1. 09/30/2013: Encouraged to crop picker OTC, if cost prohibitive will waiting [...] GENETICS: Date: 09/30/13 Counselor: BEAR Plan: Normal [place] screen DELIVERY PLANS: Unsure-Planning/Not planning Tubal Ligation [...] supplementation Screening Genetic counseling today, leaning toward [id number] NICU/Surgery consult Not at this time Delivery Plan repeat C/S (2 previous) Juany Zamora MD .................... 09/30/2013 9:27 AM Renal calculus, left 08/25/2011 Hydronephrosis 08/25/2011 Pyelonephritis 08/25/2011 Pyuria 08/11/2011 HTN (hypertension) 02/09/2009 Overview (01/18/2010): Updated by system to replace inactive record Pure hyperglyceridemia 02/09/2009 Adjustment disorder with depressed mood 02/10/20 09 Type II or unspecified type diabetes mellitus without mention of complication, not stated as uncontrolled 03/27/2007 Overview (12/23/2013): and Diabetes Clinic: See's Dr Uriostegui at [facility], her last visit 11/06/13--- Never rescheduled after several attempts. Regular astigmatism 03/27/2007 Myopia 03/27/2007 Encounters Date Type Department Care Team Description 06/04/2024 Lab Requisition [facility] [phone] aBrb Rosales MD 05/21/2024 Orders Only [facility] Scanner 1 scan: (1-Ord) EMILIO, XR SHOULDER LT MIN 2V, 05/21/2024 05/01/2024 3:45 PM CDT Orders Only [facility] [address] [place] [address] Lab, [place] [facility] 05/01/2024 2:45 PM CDT Telemedicine [facility] [address] [place] [address] Mary Fry MD Covid-19 Positive Result 05/01/2024 Travel from Last 3 Months Immunizations Name Administration Dates Next Due Influenza, IIV3 (Age 6-35 mos) 09/04/2017 Influenza, IIV3 (Age >=3 years) 10/19/2008,09/05 Tdap 02/09/2014,11/05/2005 02/10/2024 Family History Medical History Relation Name Comments Diabetes Brother Good Health Daughter Heart Disease Father Hypertension Maternal Grandmother Hypertension Mother Diabetes Paternal Grandmother Good Health Son Relation Name Status Comments Brother Daughter Father (Age 60) [place] Maternal Grandmother Mother (Age 55) [place] Paternal Grandmother Son Social History Tobacco Use [...] M CS-Un spec Livin g Thuan Delivery Location:[place] Comments:Failed IOL, P P infection 004 Term 39w 0d 4.25 kg (9 lb 6 oz) F CS-Un spec Livin g Mely Delivery Location:[place] Comments:elective repe at Last Filed Vital Signs Vital Sign Reading Time Taken Comments Blood Pressure 150/84 12/02/2019 9:41 AM SILK SCREEN PROCESSOR Pulse 65 12/02/2019 9:41 AM SILK SCREEN PROCESSOR Temperature 36.8 ??C (98.2 ??F) 12/02/2019 9:41 AM CS T Respiratory Rate 16 04/13/2014 8:57 AM CDT Oxygen Saturation 100% 12/02/2019 9:41 AM SILK SCREEN PROCESSOR Inhaled Oxygen Concentration - - Weight 83.9 kg (185 lb) 12/02/2019 9:41 AM SILK SCREEN PROCESSOR Height 165.1 cm (5' 5) 02/17/2016 8:38 [...] Mammogram for age 45-75 02/16/2017 02/17/2016, 02/22 Lipids for age 45-75 02/25/2020 02/24/2015, 08/13/2014, 02/05/2013, Additional history exists Depression screening for age 12+ 06/30/2020 06/30/2019, 06/30/2019, 02/17/2016, Additional history exists Zoster (shingles) series for age 50+ (1 of 2) 2021 Tetanus booster 02/10/2024 02/09/2014, 11/2005 (Completed outside of [facility]), 11/05/2005 COVID-19 vaccine series ( season) 2024 07/01/2021, 01/28/2021 Influenza for age 50-64 07/06/2024 10/19/2008, 09/05 Pap test for age 21-65 06/03/2027 4, 06/03/2024, 02/17/2016, Additional history exists HIV for age 15-65 Completed 08/19/2013 Tdap Completed 02/09/2014, 11/05/2005 Medical Devices Implanted Type Area Banbury Mixer Operator Device Identifier Shelf Expiration Date Model / Serial / Lot Stent Prcflx [id number] Hydpls - [id number] Implanted:Qty: 1 on 08/31/2011 at [facility] Left: [facility] [id number]# / / [id number] Stent Prcflx [id number] Hydpls - [id number] Implanted:Qty: 1 on 09/21/2011 at [facility] Left: [employer]reter [facility] 06/05/2014 [id number]# / / [id number] Explanted Type Area Banbury Mixer Operator Device Identifier Shelf Expiration Date Model / Serial / Lot Stent Prcflx [id number] Hydpls - [id number] Implanted:Kp Alanis MD (Quantity not on file) Explanted:Qty: 1 on 08/31/2011 at [facility] Left: Ureter [facility] [id number]# / / [id number] Procedures Procedure Name Priority Date/Time Associated Diagnosis Comments LAB TRACKING EVENT Routine 06/04/2024 12:00 PM CDT SHEET METAL ERECTOR THIN PREP PAP SCREEN IMAGED Routine 06/03/2024 12:00 PM CDT HPV HIGH RISK Routine 06/03/2024 12:00 PM CDT SCAN-RADIOLOGY REPORT 05/21/2024 12:00 AM CDT CREATININE,ISTAT Routine 05/01/2024 4:02 PM CDT COVID-19 virus infection XR FFDM MAMMO SCREENING BILATERAL SSP (IA) Routine 02/17/2016 9:12 AM CDT Visit for screening mammogram LIPID PANEL W REFLEX MEASURED LDL Routine 02/24/2015 2:27 PM CDT Pure hyperglyceridemia ANTI HIV 1/2 Routine 08/19/2013 10:07 AM CDT from Last 3 Months or Most Recently Relevant to Health Maintenance Results * LAB TRACKING EVENT (06/04/2024 12:00 PM CDT) Other (Other) Client Collect / Unknown 06/04/2024 12:00 PM CDT 06/04/2024 3:52 PM CDT Barb Rosales MD LAB BILL ONLY [facility] [address] [place] [phone], * SHEET METAL ERECTOR THIN PREP PAP SCREEN IMAGED (06/03/2024 12:00 PM CDT) Case Report Gynecologic Cytology Report ? Case: [id number] ? Authorizing Provider: ??Barb Rosales MD ??Collected: ? 06/03/2024 1200 ? Ordering Location: ? [facility] ?Received: ?06/05/2024 0935 ? First Screen: ?Ruth, Malcolm ? Specimen: ?SHEET METAL ERECTOR ThinPrep Vial Screening, Cervical ? 06/10/2024 3:37 PM CDT [facility] INTERPRETATION/ RESULT NEGATIVE FOR INTRAEPITHELIAL LESION OR MALIGNANCY (NIL) (none) 06/10/2024 3:37 PM CDT [facility] IMEN ADEQUACY Satisfactory for evaluation Endocervical component present 06/10/2024 3:37 PM CDT [facility] HPV REQUEST HPV and PAP 06/10/2024 3:37 PM CDT [facility] Last Pap Date 06/10/2024 3:37 PM CDT [facility] Comment:Unknown Abnormal Pap or [place] Bx in last 5 years No 06/10/2024 3:37 PM CDT [facility] Menstrual Status Irregular Periods 06/10/2024 3:37 PM CDT [facility] [place] Bx Done Today No 06/10/2024 3:37 PM CDT [facility] Additional Information 06/10/2024 3:37 PM CDT [facility] Comment: Interpreted at [facility] - [address] [place] [address], [place] [address] Automated Review Successful 06/10/2024 3:37 PM CDT [facility] Comment:Specimen processed s uccessfully by automated combine mechanic device, ThinPrep Imaging System, [employer] ANCILLARY TESTING SHEET METAL ERECTOR HPV Ordered, Please see separate report 06/10/2024 3:37 PM CDT [facility] Note The pap test is a screening technique, not a diagnostic procedure. It is used primarily to screen for squamous cancers and precursor lesions. Published studies have shown that it is subject to both false negative and false positive results. The pap test should not be used as the sole means to diagnose or exclude pre-malignant and malignant lesions. 06/10/2024 3:37 PM CDT [facility] Other (Cervical) 06/03/2024 12:00 PM CDT 06/05/2024 9:35 AM CDT Barb Rosales MD PATHOLOGY/CYTOLO GY Performing Organization Address [facility] Co de Phone Number [facility] [address] * HPV HIGH RISK (06/03/2024 12:00 PM CDT) TYPE 16 Negative Negative 06/06/2024 2:34 PM CDT [facility] TYPE 18 Negative Negative 06/06/2024 2:34 PM CDT [facility] OTHER HIGH RISK TYPES Negative Negative 06/06/2024 2:34 PM CDT [facility] Other (Cervical) 06/03/2024 12:00 PM CDT 06/05/2024 9:35 AM CDT Narrative [facility] - 06/06/2024 2:34 PM CDT HPV types 16, 18, 31, 33, 35, 39, 45, 51, 52, 56, 58, 59, 66 and 68 DNA were undetectable or below the pre-set threshold. Methodology: Kesha John 4800 HPV Test Barb Rosales MD MICROBIOLOGY Performing Organization Address [facility] de Phone Number [facility] [address] * SCAN-RADIOLOGY REPORT (05/21/2024 12:00 AM CDT) Anatomical Region Laterality Modality Other Scanner OTHER * (ABNORMAL) CREATININE,ISTAT (05/01/2024 4:02 PM CDT) CREATININE, POCT 0.80 0.57 - 1.11 mg/dL 05/01/2024 4:08 PM CDT [facility] Comment:Caution: Patients ta clarissa Hydroxyurea have falsely increased iStat Creatinine results. Verify creatinine results ordering a Creatinine (24929.2) eGFR 89(L) >90 mL/min/1.7 3m2 05/01/2024 4:08 PM CDT [facility] Comment:As of 2022, eG FR is calculated by the CKD-EPI creatinine equation without race adjustment. eGFR can be influenced by muscle mass, exercise, and diet. The reported eGFR is an estimation only and is only applicable if the renal function is stable. Blood BLOOD SPECIMEN / Unknown 05/01/2024 4:02 PM CDT 05/01/2024 4:07 PM CDT Mary Fry MD CHEMISTRY [facility] [address] [place] [address], * XR FFDM MAMMO SCREENING BILATERAL SSP [...] of Computer-Aided Detection. COMPARISON FILMS: Yes 02/22/15 [facility] FINDINGS: ??Mammographically, the breast tissue has scattered fibroglandular densities. ??No suspicious masses or microcalcifications. ?? Benign appearing calcifications within both breasts. Snehal Mendoza MD MAMMO * (ABNORMAL) LIPID PANEL W REFLEX MEASURED LDL (02/24/2015 2:27 PM CDT) CHOLESTEROL,TOTAL 240(H) 100 - 199 mg/dL 02/24/2015 3:12 PM CDT [facility] TRIGLYCERIDES 298(H) <150 mg/dL 02/24/2015 3:12 PM CDT [facility] HDL CHOLESTEROL 56 >40 mg/dL 5 3:12 PM CDT [facility] NON-HDL CHOLESTEROL 184(H) <145 mg/dl 02/24/2015 3:12 PM CDT [facility] CHOL/HDL RATIO 4.29 <4.50 02/24/2015 3:12 PM CDT [facility] LDL CHOLESTEROL 124 <=130 mg/dL 02/24/2015 3:12 PM CDT [facility] PATIENT STATUS NON-FASTI NG 02/24/2015 3:12 PM CDT [facility] Blood specimen (specimen) BLOOD SPECIMEN / Unknown Venipuncture / Unknown 02/24/2015 2:27 PM CDT 02/24/2015 2:29 PM CDT Naina HUNT CHEMISTRY [facility] [address] [place] [address], * ANTI HIV 1/2 (08/19/2013 10:07 AM CDT) ANTI HIV 1/2 Non-reacti ve [facility] Blood specimen (specimen) BLOOD SPECIMEN / Unknown 08/19/2013 10:07 AM CDT 08/19/2013 9:53 AM CDT Snehal Mendoza MD SEND OUTS [facility] INTERNAL ZIP [address] [place] [phone] from Last 3 Months or Most Recently [...] 10:01 AM 08/31/2011 5:22 PM Care Teams Dna Analyst Relationship Specialty Start Date End Date Pcp, No . PCP - General 11/07/19 Darryl Richmond MD Urology Surgery - Urology 04/29/13
--- OUTSIDE RECORDS SUMMARY | 2024-07-29 11:39 | XMS_ITS | Encounter Summary ---
Author Organization [facility] Address [address] [place] [address] Care Team Providers Care Renal Medicine Specialist Name Role Phone Unavailable Primary Care Provider Unavailabl e Encounter Details Date Type Department Care Team (Late Contact Info) Description 06/25/2024 Ancillary Procedure Department of Ophthalmology Social History [...] CDT Ancillary Procedure Department of Ophthalmology in [place], [place] [address] [place] [phone] Rere Nair M.D., Ph.D. [address] [place] [phone] 08/01/2024 2:00 PM CDT Procedure visit Department of Ophthalmology in [place], [place] [address] [place] [phone] Rere Nair M.D., Ph.D. [address] [place] [address] [phone] 08/01/2024 2:15 PM CDT Ancillary Procedure Department of Ophthalmology in [place], [place] [address] [place] [phone] Rere Nair M.D., Ph.D. [address] [place] [phone] 08/01/2024 2:45 PM CDT Ancillary Procedure Department of Ophthalmology in [place], [place] [address] [place] [phone] Rere Nair M.D., Ph.D. [address] [place] [phone] 08/01/2024 3:00 PM CDT Office Visit Department of Ophthalmology in [address] [phone] Rere Nair M.D., Ph.D. [address] [place] [phone] documented as of this encounter Procedures Procedure Name Priority Date/Time Associated Diagnosis Comments OPHTHALMOLOGY IMAGE EXAM Routine 06/25/2024 12:00 AM CDT documented in this encounter Results * Eyes US-Eye M-Lodn-Odyskzblelxqx Image Exam (06/25/2024 12:00 AM CDT) Narrative [facility] - 06/25/2024 11:01 AM CDT This order has been created [...]
--- OUTSIDE RECORDS SUMMARY | 2024-07-29 11:39 | XMS_ITS | Encounter Summary ---
Author Organization [facility] Address [address] [place] [address] Care Team Providers Care Digital Editor Name Role Phone Unavailable Primary Care Provider Unavailabl e Encounter Details Date Type Department Care Team (Late st Contact Info) Description 06/25/2024 12:05 AM CDT Ancillary Procedure Department of Ophthalmology Social [...] CDT Ancillary Procedure Department of Ophthalmology in [place], [place] [address] [place] [phone] Rere Nair M.D., Ph.D. [address] [place] [phone] 08/01/2024 2:00 PM CDT Procedure visit Department of Ophthalmology in [place], [place] [address] [place] [phone] Rere Nair M.D., Ph.D. [address] [place] [phone] 08/01/2024 2:15 PM CDT Ancillary Procedure Department of Ophthalmology in [place], [place] [address] [place] [phone] Rere Nair M.D., Ph.D. [address] [place] [phone] 08/01/2024 2:45 PM CDT Ancillary Procedure Department of Ophthalmology in [place], [place] [address] [place] [phone] Rere Nair M.D., Ph.D. [address] [place] [phone] 08/01/2024 3:00 PM CDT Office Visit Department of Ophthalmology in [place], [place] [address] [place] [phone] Rere Nair M.D., Ph.D. [address] [place] [phone] documented as of this encounter Procedures Procedure Name Priority Date/Time Associated Diagnosis Comments OPHTHALMOLOGY IMAGE EXAM Routine 06/25/2024 12:05 AM CDT documented in this encounter Results * Video-Eyes US-Eye C-Rxnh-Sjiicdcymacrx Image Exam (06/25/2024 12:05 AM CDT) Narrative IIMS - 06/25/2024 11:02 AM CDT [...]
--- OUTSIDE RECORDS SUMMARY | 2024-07-29 11:39 | XMS_ITS | Encounter Summary ---
Author Organization [facility] Address [address] [place] [address] Care Team Providers Care Aerospace Engineer Name Role Phone Unavailable Primary Care Provider Unavailabl e Encounter Details Date Type Department Care Team (Late st Contact Info) Description 06/05/2024 [facility] EYE [facility] [address] [phone] Bob Velasco M.D. [address] [phone] Hemorrhage Vitreous Right (HCC) (Primary Dx) Social [...] CDT Ancillary Procedure Department of Ophthalmology in [place], [place] [address] [place] [phone] Rere Nair M.D., Ph.D. [address] [place] [phone] 08/01/2024 2:00 PM CDT Procedure visit Department of Ophthalmology in [place], [place] [address] [place] [phone] Rere Nair M.D., Ph.D. [address] [place] [phone] 08/01/2024 2:15 PM CDT Ancillary Procedure Department of Ophthalmology in [place], [place] [address] [place] [phone] Rere Nair M.D., Ph.D. [address] [place] [phone] 08/01/2024 2:45 PM CDT Ancillary Procedure Department of Ophthalmology in [place], [place] [address] [place] [phone] Rere Nair M.D., Ph.D. [address] [place] [phone] 08/01/2024 3:00 PM CDT Office Visit Department of Ophthalmology in [address] [phone] Rere Nair M.D., Ph.D. [address] [place] [phone] documented as of this encounter Visit Diagnoses Diagnosis Hemorrhage Vitreous Right (HCC)- Primary documented in this encounter
--- OUTSIDE RECORDS SUMMARY | 2024-07-29 11:39 | XMS_ITS | Encounter Summary ---
Author Organization [facility] Address [address] [place] [address] Care Team Providers Care Marine Painter Name Role Phone Unavailable Primary Care Provider Unavailabl e Encounter Details Date Type Department Care Team (Latest Contact Info) Description 06/25/2024 10:00 AM CDT Ancillary Procedure Department of Ophthalmology in [place], [place] [address] [place] [phone] Rere Nair M.D., Ph.D. [address] [place] [phone] Hemorrhage Vitreous Right (HCC) Social History Tobacco [...] CDT Ancillary Procedure Department of Ophthalmology in [place], [place] [address] [place] [phone] Rere Nair M.D., Ph.D. [address] [place] [phone] 08/01/2024 2:00 PM CDT Procedure visit Department of Ophthalmology in [place], [place] [address] [place] [phone] Rere Nair M.D., Ph.D. [address] [place] [phone] 08/01/2024 2:15 PM CDT Ancillary Procedure Department of Ophthalmology in [place], [place] [address] [place] [phone] Rere Nair M.D., Ph.D. [address] [place] [phone] 08/01/2024 2:45 PM CDT Ancillary Procedure Department of Ophthalmology in [address] [phone] Rere Nair M.D., Ph.D. [address] [place] [phone] 08/01/2024 3:00 PM CDT Office Visit Department of Ophthalmology in [address] [phone] Rere Nair M.D., Ph.D. [address] [place] [phone] documented as of this encounter Procedures Procedure Name Priority Date/Time Associated Diagnosis Comments B SCAN - OD - RIGHT EYE Routine 06/25/2024 10:57 AM CDT Hemorrhage Vitreous Right (HCC) documented in this encounter Results * B-Scan Ultrasound - OD - Right Eye (06/25/2024 10:57 AM CDT) [facility] OPHTHALMOLGY NON-IMAGING ORDERS - 06/25/2024 11:11 AM CDT 06/25/2024 B-scan Right Eye: Possible partial vitreous detachment, attached at the nerve, moderate to dense vitreous opacities most notably at 12PE. No traction noted on kinetic exam, retina appears attached. ?? JH Rere Nair M.D., Ph.D. OPHTH ULTR ASOUND OPHTHALMOLGY NON-IMAGING ORDERS documented in this encounter Visit Diagnoses Diagnosis Hemorrhage Vitreous Right (HCC) documented in this encounter
--- NOTE | 2024-07-29 12:30 | W.ANESCHARGE ---
Anesthesia Charges Start Date/Time Anesthesia Start Date: 07/29/24 Anesthesia Start Time: 12:21 Stop Date/Time Anesthesia Stop Date: 07/29/24 Anesthesia Stop Time: 12:48
--- NOTE | 2024-07-29 12:52 | W.ANESCHARGE ---
Anesthesia Charges Start Date/Time Anesthesia Start Date: 07/29/24 Anesthesia Start Time: 12:21 Stop Date/Time Anesthesia Stop Date: 07/29/24 Anesthesia Stop Time: 12:48
== END 2024-07-29 11:33 | disposition home or self-care (01) ==
LOC: OP CLINIC 11:33
PROVIDERS: PCP Internal Medicine; Visit Provider Surgery
DX: Z12.11 Encounter for screening for malignant neoplasm of colon (principal); D12.3 Benign neoplasm of transverse colon; K57.30 Diverticulosis of large intestine without perforation or abscess without bleeding
CPT/HCPCS: 00811; 45385; 88305; T1013; J2704

== ENCOUNTER 2024-07-29 13:17 | Outpatient (CLI) | payer BC, SELFPAY ==
--- OUTSIDE RECORDS SUMMARY | 2024-07-29 13:19 | XMS_ITS | Clinical Summary ---
Author Organization [facility] Address [address] [place] [address] Care Team Providers Care Paper Core Machine Operator Name Role Phone Elsewhere, Pcp Primary Care Provider Unavailabl e Source Comments Patient records contain information from all sites at [facility]. For routine questions regarding patient records, call [phone] during business hours, M-F 8:00 AM - 5:00 PM Central Time. 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 Has had 4 Vabysmo injections without clearance, [...] CDT Office Visit Department of Ophthalmology in [place], [place] [address] [place] [phone] Rere Nair M.D., Ph.D. 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 Hemorrhage Vitreous Right (HCC) (Primary Dx) 07/09/2024 Orders Only Department of Ophthalmology in [place], [place] [address] [place] [address] Enid Sawant C.O.A. 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 25G pars plana vitrectomy, endolaser, air bubble, avastin injection to right eye. 07/08/2024 10:58 AM CDT Anesthesia Event [facility] OR [address] [place] [phone] Makayla Jones APRN, ANITA, D.N.PEduin Gayle M.D. 07/08/2024 10:55 AM CDT Ancillary Procedure Department of General Surgery 07/08/2024 10:08 AM CDT - 07/08/2024 1:33 PM CDT Hospital Encounter [facility] OR [address] [place] [phone] Rere Nair M.D., Ph.D. Discharge Disposition: Home or Self Care 07/04/2024 3:00 PM CDT Comprehensive Visit Preoperative Evaluation Center in [place], [place] [address] [place] [address] Rere Nair M.D., Ph.D. Mega Triplett, NLIA, C.N.P., M.S. 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 06/25/2024 11:38 AM CDT - 06/25/2024 11:59 PM CDT Hospital Encounter Department of Laboratory Medicine and Pathology, [facility] in [place], [place] [address] [place] [phone] Rere Nair M.D., Ph.D. Hemorrhage Vitreous Right (HCC) Discharge Disposition: Home or Self Care 06/25/2024 11:00 AM CDT Comprehensive Visit Department of Ophthalmology in [place], [place] [address] [place] [phone] Rere Nair M.D., Ph.D. Hemorrhage Vitreous Right (HCC) (Primary Dx) 06/25/2024 10:00 AM CDT Ancillary Procedure Department of Ophthalmology in [place], [place] [address] [place] [phone] Rere Nair M.D., Ph.D. Hemorrhage Vitreous Right (HCC) 06/25/2024 12:05 AM CDT Ancillary Procedure Department of Ophthalmology 06/25/2024 Episode Changes Department of Ophthalmology in [place], [place] [address] [place] [phone] Gale Martínez 06/25/2024 Orders Only Department of Ophthalmology in [place], [place] [address] [place] [phone] [place], [place] L, C.O.A. Hemorrhage Vitreous Right (HCC) (Primary Dx) 06/25/2024 Ancillary Procedure Department of Ophthalmology 06/24/2024 3:20 PM CDT Ancillary Procedure Department of Ophthalmology 06/24/2024 2:15 PM CDT Ancillary Procedure Department of Ophthalmology in [place], [place] [address] [place] [address] Rere Nair M.D., Ph.D. 06/24/2024 2:00 PM CDT Procedure visit Department of Ophthalmology in [place], [place] [address] [place] [address] Rere Nair M.D., Ph.D. Wilmer Tao CMatthewOMatthewA. Hemorrhage Vitreous Right (HCC) 06/24/2024 1:30 PM CDT Ancillary Procedure Department of Ophthalmology in [place], [place] [address] [place] [address] Rere Nair M.D., Ph.D. Hemorrhage Vitreous Right (HCC) 06/24/2024 Ancillary Procedure Department of Ophthalmology 06/12/2024 Clinical Communication Department of Ophthalmology in [place], [place] [address] [place] [address] Rere Nair M.D., Ph.D. 06/11/2024 Orders Only Department of Ophthalmology in [place], [place] [address] [place] [address] Rere Nair M.D., Ph.D. Hemorrhage Vitreous Right (HCC) (Primary Dx) 06/11/2024 Clinical Communication Department of Ophthalmology in [place], [place] [address] [place] [address] Rere Nair M.D., Ph.D. 06/09/2024 Clinical Communication Department of Ophthalmology in [place], [place] [address] [facility] [place] [address] Melanie Adams O.D. 06/05/2024 [facility] EYE [facility] [address] [phone] Bob Velasco M.D. Hemorrhage Vitreous Right (HCC) (Primary Dx) 04/30/2024 [facility] [address] [place] [phone] Bob Velasco M.D. Hemorrhage Vitreous Right (HCC) [...] th e electric, gas, oil, or water [employer] threatened to shut off services in your [...] your living situation today? I have a [facility] place to live 07/04/2024 Sex and [...] CDT Ancillary Procedure Department of Ophthalmology in [place], [place] 200 [place] [phone] Rere Nair M.D., Ph.D. 200 [place] [phone] 08/01/2024 2:00 PM CDT Procedure visit Department of Ophthalmology in [place], [place] 200 [place] [phone] Rere Nair M.D., Ph.D. [address] [place] [phone] 08/01/2024 2:15 PM CDT Ancillary Procedure Department of Ophthalmology in [place], [place] [address] [place] [phone] Rere Nair M.D., Ph.D. [address] [place] [phone] 08/01/2024 2:45 PM CDT Ancillary Procedure Department of Ophthalmology in [place], [place] [address] [place] [phone] Rere Nair M.D., Ph.D. [address] [place] [phone] 08/01/2024 3:00 PM CDT Office Visit Department of Ophthalmology in [place], [place] [address] [place] [phone] Rere Nair M.D., Ph.D. [address] [place] [phone] Health Maintenance Due Date Last Done Comments [...] CDT Hemorrhage Vitreous Right (HCC) Case Notes Derrick Follower @ 1012. TPU 11. GLUCOSE POCT, B [...] RAD IMAGI NG PROCEDURES Performing Organization Address City/[facility]/ZIP Co de Phone Number IIWI NA * (ABNORMAL) Glucose, POCT (07/08/2024 10:42 AM CDT) Glucose, POCT, B 146(H) 70 - 140 mg/dL 07/08/2024 10:56 AM CDT PCLX Comment: Glucose results collected from venous catheters may be falsely elevated. Site Venline 07/08/2024 10:56 AM CDT PCLX Blood 07/08/2024 10:4 2 AM CDT 07/08/2024 10:56 AM CDT Unknown Provider LAB POCT ORDERABLES- MANUAL POC [facility] [address] [place] [address], [place] PCLX [facility] POC [address] [place] [address] * (ABNORMAL) Hemoglobin A1c (06/25/2024 11:49 AM [...] Ph.D. LAB BLOOD ADD-ON Performing Organization Address [facility] de Phone Number [facility] [address] [place] [address], [place] DTL [facility] [address] [place] [address] * B-Scan Ultrasound - OD - Right Eye (06/25/2024 10:57 AM CDT) Narrative OPHTHALMOLGY NON-IMAGING ORDERS - 06/25/2024 11:11 AM CDT 06/25/2024 B-scan Right Eye: Possible partial vitreous detachment, attached at the nerve, moderate to dense vitreous opacities most notably at 12PE. No traction noted on kinetic exam, retina appears attached. ?? JH Rere Nair M.D., Ph.D. OPHTH ULTR ASOUND Performing Organization Address [facility] de Phone Number OPHTHALMOLGY NON-IMAGING ORDERS * Video-Eyes US-Eye X-Yjqm-Cliuewduotrsa Image Exam (06/25/2024 12:05 AM CDT) Only [...] RAD IMAGI NG PROCEDURES Performing Organization Address [facility] de Phone Number IIMS NA [...] Ph.D. OPH BRIAN GRAPHY Performing Organization Address [facility] Co de Phone Number OPHTHALMOLOGY IMAGING [...] Ph.D. OPH PHOT OGRAPHY Performing Organization Address [facility] de Phone Number OPHTHALMOLOGY IMAGING EXAM from Last 3 Months Care Teams Paper Core Machine Operator Relationship Specialty Start Date End Date Elsewhere, Pcp PCP - General Internal Medicine 07/03/24
--- OUTSIDE RECORDS SUMMARY | 2024-07-29 13:20 | XMS_ITS | Encounter Summary ---
Author Organization [facility] Address [address] [place] [address] Care Team Providers Care Director Of Midwifery/Staff Midwife Name Role Phone Unavailable Primary Care Provider Unavailabl e Reason for Referral * Outpatient (Routine) - Closed Specialty Diagnoses / Procedures Referred By Contac t Referred To Contact Ophthalmology Rere Nair M.D., Ph.D. [address] [place] [phone] [facility] Referral ID Status Reason Start Date Expiration Date Visits Re quested Visits Authorized [id number] Closed 06/25/2024 12/25/2025 1 1 * Outpatient (Routine) - Authorized Specialty Diagnoses / Procedures Referred By Contac t Referred To Contact Ophthalmology Rere Nair M.D., Ph.D. [address] [place] [phone] [facility] Referral ID Status Reason Start Date Expiration Date V isits Requested Visits Authorized [id number] Authorized 06/25/2024 12/25/2025 1 1 * Outpatient (Routine) - Closed Specialty Diagnoses / Procedures Referred By Contac t Referred To Contact Ophthalmology Rere Nair M.D., Ph.D. [address] [place] [phone] [facility] Referral ID Status Reason Start Date Expiration Date Visits Re quested Visits Authorized [id number] Closed 06/25/2024 12/25/2025 1 1 Encounter Details Date Type Department Care Team (Late Contact Info) Description 06/25/2024 Orders Only Department of Ophthalmology in [place], [place] [address] [place] [phone] Enid Sawant C.O.A. [address] [place] [phone] Hemorrhage Vitreous Right (HCC) (Primary Dx) Social [...] CDT Ancillary Procedure Department of Ophthalmology in [place], [place] [address] [place] [phone] Rere Nair M.D., Ph.D. [address] [place] [phone] 08/01/2024 2:00 PM CDT Procedure visit Department of Ophthalmology in [place], [place] [address] [place] [phone] Rere Nair M.D., Ph.D. [address] [place] [phone] 08/01/2024 2:15 PM CDT Ancillary Procedure Department of Ophthalmology in [place], [place] [address] [place] [phone] Rere Nair M.D., Ph.D. [address] [place] [phone] 08/01/2024 2:45 PM CDT Ancillary Procedure Department of Ophthalmology in [place], [place] [address] [place] [phone] Rere Nair M.D., Ph.D. [address] [place] [phone] 08/01/2024 3:00 PM CDT Office Visit Department of Ophthalmology in [place], [place] [address] [place] [phone] Rere Nair M.D., Ph.D. [address] [place] [phone] Scheduled Orders Name Type Priority Associated Diagnoses [...]
--- OUTSIDE RECORDS SUMMARY | 2024-07-29 13:20 | XMS_ITS | Encounter Summary ---
Author Organization [facility] Address [address] [place] [address] Care Team Providers Care Microfilmer Name Role Phone Elsewhere, Pcp Primary Care Provider Unavailabl e Encounter Details Date Type Department Care Team (Late st Contact Info) Description 07/08/2024 10:55 AM CDT Ancillary Procedure Department of General Surgery Social History Tobacco Use Types Packs/Day Years Used Date Smoking Tobacco: Never Smokeless Tobacco: Never Alcohol Use Standard Drinks/Week Comments Yes 6 (1 standard drink = 0.6 oz pur e alcohol) [facility] Utilities Answer Date Recorded In the past 12 months has th e electric, gas, oil, or water [employer] threatened to shut off services in your [...] your living situation today? I have a [facility] place to live 07/04/2024 Sex and [...] CDT Ancillary Procedure Department of Ophthalmology in [place], [place] [address] [place] [phone] Rere Nair M.D., Ph.D. [address] [place] [phone] 08/01/2024 2:00 PM CDT Procedure visit Department of Ophthalmology in [place], [place] [address] [place] [phone] Rere Nair M.D., Ph.D. [address] [place] [phone] 08/01/2024 2:15 PM CDT Ancillary Procedure Department of Ophthalmology in [place], [place] [address] [place] [phone] Rere Nair M.D., Ph.D. [address] [place] [phone] 08/01/2024 2:45 PM CDT Ancillary Procedure Department of Ophthalmology in [place], [place] [address] [place] [phone] Rere Nair M.D., Ph.D. [address] [place] [phone] 08/01/2024 3:00 PM CDT Office Visit Department of Ophthalmology in [place], [place] [address] [place] [address] Rere Nair M.D., Ph.D. [address] [place] [address] documented as of this encounter Procedures Procedure [...] on filedocumented in this encounter Care Teams Microfilmer Relationship Specialty Start Date End Date Elsewhere, Pcp PCP - General Internal Medicine 07/03/24 documented as of this encounter
--- OUTSIDE RECORDS SUMMARY | 2024-07-29 13:20 | XMS_ITS | Encounter Summary ---
Author Organization [facility] Address [address] [place] [address] Care Team Providers Care Pediatric Surgeon Name Role Phone Unavailable Primary Care Provider [...] CDT Ancillary Procedure Department of Ophthalmology in [place], [place] [address] [place] [phone] Rere Nair M.D., Ph.D. [address] [place] [phone] 08/01/2024 2:00 PM CDT Procedure visit Department of Ophthalmology in [place], [place] [address] [place] [phone] Rere Nair M.D., Ph.D. [address] [place] [phone] 08/01/2024 2:15 PM CDT Ancillary Procedure Department of Ophthalmology in [place], [place] [address] [place] [phone] Rere Nair M.D., Ph.D. [address] [place] [phone] 08/01/2024 2:45 PM CDT Ancillary Procedure Department of Ophthalmology in [place], [place] [address] [place] [phone] Rere Nair M.D., Ph.D. [address] [place] [phone] 08/01/2024 3:00 PM CDT Office Visit Department of Ophthalmology in [address] [phone] Rere Nair M.D., Ph.D. [address] [place] [phone] documented as of this encounter Procedures Procedure Name Priority Date/Time Associated Diagnosis Comments OPHTHALMOLOGY IMAGE EXAM Routine 06/25/2024 12:00 AM CDT documented in this encounter Results * Eyes US-Eye E-Oies-Ljmmpcrbqvhiw Image Exam (06/25/2024 12:00 AM CDT) Narrative [...]
--- OUTSIDE RECORDS SUMMARY | 2024-07-29 13:20 | XMS_ITS | Encounter Summary ---
Author Organization [facility] Address [address] [place] [address] Care Team Providers Care Acid Retort Operator Name Role Phone Elsewhere, Pcp Primary Care Provider Unavailabl e Reason for Visit * Auth/Cert (Routine) Specialty Diagnoses / Procedures Referred By Zev t Referred To Contact Diagnoses Hemorrhage Vitreous Right (HCC) Hemorrhage Vitreous Right (HCC) [H43.11] Procedures [place] VITRECTOMY [facility] PARS PLANA 25G pars plana vitrectomy, endolaser, air, possible gas and all other associated procedures right eye Rere Nair M.D., Ph.D. [address] [place] [phone] Referral ID Status Reason Start Date Expiration Date Visits Re quested Visits Authorized [id number] 1 1 Encounter Details Date Type Department Care Team (Late st Contact Info) Description 07/08/2024 12:11 PM CDT - 07/08/2024 2:26 PM CDT [facility] OR [address] [place] [phone] Rere Nair M.D., Ph.D. [address] [place] [address] [phone] 25G pars plana vitrectomy, endolaser, air bubble, avastin injection to right eye. Social History Tobacco Use Types Packs/Day Years Used Date Smoking Tobacco: Never Smokeless Tobacco: Never Alcohol Use Standard Drinks/Week Comments Yes 6 (1 standard drink = 0.6 oz pur e alcohol) [facility] Utilities Answer Date Recorded In the past [...] your living situation today? I have a [facility] place to live 07/04/2024 Sex and [...] type of surgery. In general, we recommend cbfw-biw-zyzmytq pain medications such as Extra Strength Tylenol. [...] evaluation. Any questions or concerns please call [phone] (Business hours) [phone] (Evenings and weekends, ask for the Director Of Public Relations unit manager convenience stores) documented in this encounter Medications at Time [...] (HCC) Post-op Diagnosis Hemorrhage Vitreous Right (HCC) Manufacturers Representative A first officer and flight instructor actively participated and was necessary for one [...] CDT Ancillary Procedure Department of Ophthalmology in [place], [place] [address] [place] [phone] Rere Nair M.D., Ph.D. [address] [place] [phone] 08/01/2024 2:00 PM CDT Procedure visit Department of Ophthalmology in [place], [place] [address] [place] [phone] Rere Nair M.D., Ph.D. [address] [place] [phone] 08/01/2024 2:15 PM CDT Ancillary Procedure Department of Ophthalmology in [place], [place] [address] [place] [phone] Rere Nair M.D., Ph.D. [address] [place] [phone] 08/01/2024 2:45 PM CDT Ancillary Procedure Department of Ophthalmology in [place], [place] [address] [place] [phone] Rere Nair M.D., Ph.D. [address] [place] [phone] 08/01/2024 3:00 PM CDT Office Visit Department of Ophthalmology in [address] [phone] Rere Nair M.D., Ph.D. [address] [place] [phone] documented as of this encounter Procedures Procedure Name Priority Date/Time Associated Diagnosis Comments VITRECTOMY - PARS PLANA 25 GAUGE 07/08/2024 10:48 AM CDT Hemorrhage Vitreous Right (HCC) Case Notes Cast Iron Drain Pipe Layer @ 1012. TPU 11. GLUCOSE POCT, B Routine 07/08/2024 10:42 AM CDT documented in this encounter Results * (ABNORMAL) Glucose, POCT (07/08/2024 10:42 AM CDT) [facility] Glucose, POCT, B 146(H) 70 - 140 mg/dL 07/08/2024 10:56 AM CDT PCLX Comment: Glucose results collected from venous catheters may be falsely elevated. Site Venline 07/08/2024 10:56 AM CDT PCLX Blood 07/08/2024 10:4 2 AM CDT 07/08/2024 10:56 AM CDT Unknown Provider LAB POCT ORDERABLES- MANUAL POC [facility] [address] [place] [address], [facility] PCLX [facility] P[facility] [address] [place] [address] documented in this encounter Visit Diagnoses Diagnosis Hemorrhage Vitreous Right (HCC)- Primary Network Relations Consultant Use Of Insulin Active (HCC) Hemorrhage Vitreous [...] 11:38 AM CDT 2 mL Right Eye xwvtfrfrx-IEMyvbnqzzy-fvrwkjjvy dase human recombinant (Ophthalmic Block Solution #4) [...] than or equal to 300: Call anesthesia ipobutarb-BTMmmlawpbp-syqftklldrgw e human recombinant (Ophthalmic Block Solution #4) [...] NPO) documented in this encounter Care Teams Acid Retort Operator Relationship Specialty Start Date End Date Elsewhere, Pcp PCP - General Internal Medicine 07/03/24 documented as of this encounter
--- OUTSIDE RECORDS SUMMARY | 2024-07-29 13:20 | XMS_ITS | Encounter Summary ---
Author Organization [facility] Address [address] [place] [address] Care Team Providers Care Labor Commissioner Name Role Phone Elsewhere, Pcp Primary Care Provider Unavailabl e Encounter Details Date Type Department Care Team (Latest Contact Info) Description 07/04/2024 Clinical Communication Department of Ophthalmology in [place], [place] [address] [place] [address] Rere Nair M.D., Ph.D. [address] [place] [address] Social History Tobacco Use Types Packs/Day Years Used Date Smoking Tobacco: Never Smokeless Tobacco: Never Alcohol Use Standard Drinks/Week Comments Yes 4 (1 standard drink = 0.6 oz pur e alcohol) [facility] Utilities Answer Date Recorded In the past [...] your living situation today? I have a [facility] place to live 07/04/2024 Sex and [...] CDT Ancillary Procedure Department of Ophthalmology in [place], [place] [address] [place] [phone] Rere Nair M.D., Ph.D. [address] [place] [phone] 08/01/2024 2:00 PM CDT Procedure visit Department of Ophthalmology in [place], [place] [address] [place] [phone] Rere Nair M.D., Ph.D. [address] [place] [phone] 08/01/2024 2:15 PM CDT Ancillary Procedure Department of Ophthalmology in [place], [place] [address] [place] [phone] Rere Nair M.D., Ph.D. [address] [place] [phone] 08/01/2024 2:45 PM CDT Ancillary Procedure Department of Ophthalmology in [place], [place] [address] [place] [phone] Rere Nair M.D., Ph.D. [address] [place] [phone] 08/01/2024 3:00 PM CDT Office Visit Department of Ophthalmology in [place], [place] [address] [place] [phone] Rere Nair M.D., Ph.D. [address] [place] [phone] documented as of this encounter Visit Diagnoses Not on filedocumented in this encounter Care Teams Labor Commissioner Relationship Specialty Start Date End Date Elsewhere, Pcp PCP - General Internal Medicine 07/03/24 documented as of this encounter
--- OUTSIDE RECORDS SUMMARY | 2024-07-29 13:20 | XMS_ITS | Encounter Summary ---
Author Organization [facility] Address [address] [place] [address] Care Team Providers Care Floor Clerk Name Role Phone Unavailable Primary Care Provider Unavailabl e Encounter Details Date Type Department Care Team (Latest Contact Info) Description 06/25/2024 11:38 AM CDT - 06/25/2024 11:59 PM CDT Hospital Encounter Department of Laboratory Medicine and Pathology, [facility] in [place], [place] [address] [place] [phone] Rere Nair M.D., Ph.D. [address] [place] [phone] Hemorrhage Vitreous Right (HCC) Discharge Disposition: Home [...] Ancillary Procedure Department of Ophthalmology in [address] [phone] Rere Nair M.D., Ph.D. [address] [place] [phone] 08/01/2024 2:00 PM CDT Procedure visit Department of Ophthalmology in [address] [phone] Rere Nair M.D., Ph.D. [address] [place] [phone] 08/01/2024 2:15 PM CDT Ancillary Procedure Department of Ophthalmology in [address] [phone] Rere Nair M.D., Ph.D. [address] [place] [phone] 08/01/2024 2:45 PM CDT Ancillary Procedure Department of Ophthalmology in [address] [phone] Rere Nair M.D., Ph.D. [address] [place] [phone] 08/01/2024 3:00 PM CDT Office Visit Department of Ophthalmology in [place], [place] [address] [place] [address] Rere Nair M.D., Ph.D. [address] [place] [phone] documented as of this encounter Procedures Procedure [...] Rere Nair M.D., Ph.D. LAB BLOOD ADD-ON [facility] 200 [place] [address], [place] DTL [facility] 200 [place] [address] documented in this encounter Visit Diagnoses Diagnosis Hemorrhage Vitreous Right (HCC) documented in this encounter
--- OUTSIDE RECORDS SUMMARY | 2024-07-29 13:20 | XMS_ITS | Encounter Summary ---
Author Organization [facility] Address [address] [place] [address] Care Team Providers Care Network Manager Name Role Phone Elsewhere, Pcp Primary Care Provider Unavailabl e Encounter Details Date Type Department Care Team (Late st Contact Info) Description 07/09/2024 Orders Only Department of Ophthalmology in [place], [place] [address] [place] [address] Enid Sawant, C.O.A. 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 I have a [facility] place to live 07/04/2024 Sex [...] CDT Ancillary Procedure Department of Ophthalmology in [place], [place] [address] [place] [phone] Rere Nair M.D., Ph.D. [address] [place] [phone] 08/01/2024 2:00 PM CDT Procedure visit Department of Ophthalmology in [place], [place] [address] [place] [phone] Rere Nair M.D., Ph.D. [address] [place] [phone] 08/01/2024 2:15 PM CDT Ancillary Procedure Department of Ophthalmology in [place], [place] [address] [place] [phone] Rere Nair M.D., Ph.D. [address] [place] [phone] 08/01/2024 2:45 PM CDT Ancillary Procedure Department of Ophthalmology in [place], [place] [address] [place] [phone] Rere Nair M.D., Ph.D. [address] [place] [phone] 08/01/2024 3:00 PM CDT Office Visit Department of Ophthalmology in [place], [place] [address] [place] [phone] Rere Nair M.D., Ph.D. [address] [place] [phone] Scheduled Orders Name Type Priority Associated Diagnoses [...] (HCC) documented in this encounter Care Teams Network Manager Relationship Specialty Start Date End Date Elsewhere, Pcp PCP - General Internal Medicine 07/03/24 documented as of this encounter
--- OUTSIDE RECORDS SUMMARY | 2024-07-29 13:20 | XMS_ITS | Encounter Summary ---
Author Organization [facility] Address [address] [place] [address] Care Team Providers Care Photoengraving Retoucher Name Role Phone Elsewhere, Pcp Primary Care Provider Unavailabl e Reason for Visit * Outpatient (Routine) - Closed Specialty Diagnoses / Procedures Referred By Zev t Referred To Contact Ophthalmology Rere Nair M.D., Ph.D. [address] [place] [phone] [facility] Referral ID Status Reason Start Date Expiration Date Visits Re quested Visits Authorized [id number] Closed 06/25/2024 12/25/2025 1 1 Encounter Details Date Type Department Care Team (Latest Contact Info) Description 07/21/2024 8:00 AM CDT Office Visit Department of Ophthalmology in [place], [place] [address] [place] [phone] Rere Nair M.D., Ph.D. 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 I have a [facility] place to live 07/04/2024 Sex [...] note were not included. Retina Post-operative Note, [facility] at [place], [place] Post-operative week #1: Status post pars [...] notes for descriptions of previous imaging See [facility] ophthalmology module for exam information. Assessment: [...] Letters to: Dr. Mike Nair MD, PhD Social Media Designer Mother Repairer Vitreoretinal Surgery & Diseases [facility], Department of Ophthalmology [address] [place] [address] documented in this encounter Miscellaneous Notes * [...] CDT Ancillary Procedure Department of Ophthalmology in [place], [place] [address] [place] [phone] Rere Nair M.D., Ph.D. [address] [place] [phone] 08/01/2024 2:00 PM CDT Procedure visit Department of Ophthalmology in [place], [place] [address] [place] [phone] Rere Nair M.D., Ph.D. [address] [place] [phone] 08/01/2024 2:15 PM CDT Ancillary Procedure Department of Ophthalmology in [place], [place] [address] [place] [phone] Rere Nair M.D., Ph.D. [address] [place] [phone] 08/01/2024 2:45 PM CDT Ancillary Procedure Department of Ophthalmology in [address] [phone] Rere Nair M.D., Ph.D. [address] [place] [phone] 08/01/2024 3:00 PM CDT Office Visit Department of Ophthalmology in [address] [phone] Rere Nair M.D., Ph.D. 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
--- OUTSIDE RECORDS SUMMARY | 2024-07-29 13:20 | XMS_ITS | Encounter Summary ---
Author Organization [facility] Address [address] [place] [address] Care Team Providers Care Liquor Grinding Mill Operator Name Role Phone Unavailable Primary Care Provider Unavailabl e Encounter Details Date Type Department Care Team (Late Contact Info) Description 06/25/2024 Episode Changes Department of Ophthalmology in [place], [place] [address] [place] [phone] Gale Martínez Social History Tobacco Use Types [...] CDT Ancillary Procedure Department of Ophthalmology in [place], [place] [address] [place] [phone] Rere Nair M.D., Ph.D. [address] [place] [phone] 08/01/2024 2:00 PM CDT Procedure visit Department of Ophthalmology in [place], [place] [address] [place] [phone] Rere Nair M.D., Ph.D. [address] [place] [phone] 08/01/2024 2:15 PM CDT Ancillary Procedure Department of Ophthalmology in [place], [place] [address] [place] [phone] Rere Nair M.D., Ph.D. [address] [place] [phone] 08/01/2024 2:45 PM CDT Ancillary Procedure Department of Ophthalmology in [place], [place] [address] [place] [phone] Rere Nair M.D., Ph.D. [address] [place] [phone] 08/01/2024 3:00 PM CDT Office Visit Department of Ophthalmology in [address] [phone] Rere Nair M.D., Ph.D. [address] [place] [phone] documented as of this encounter Visit Diagnoses Not on filedocumented in this encounter
--- OUTSIDE RECORDS SUMMARY | 2024-07-29 13:20 | XMS_ITS | Encounter Summary ---
Author Organization [facility] Address [address] [place] [address] Care Team Providers Care Lsat Instructor Name Role Phone Elsewhere, Pcp Primary Care Provider Unavailabl e Reason for Visit * Auth/Cert (Routine) Specialty Diagnoses / Procedures Referred By Zev t Referred To Contact Diagnoses Hemorrhage Vitreous Right (HCC) Hemorrhage Vitreous Right (HCC) [H43.11] Procedures [place] VITRECTOMY [facility] PARS PLANA 25G pars plana vitrectomy, endolaser, air, possible gas and all other associated procedures right eye Rere Nair M.D., Ph.D. 200 [place] [address] Referral ID Status Reason Start Date Expiration Date Visits Re quested Visits Authorized [id number] 1 1 Encounter Details Date Type Department Care Team (Latest Contact Info) Description 07/08/2024 10:08 AM CDT - 07/08/2024 1:33 PM T Hospital Encounter [facility] [address] [place] [phone] Rere Nair M.D., Ph.D. [address] [place] [phone] Discharge Disposition: Home or Self Care Social History Tobacco Use Types Packs/Day Years Used Date Smoking Tobacco: Never Smokeless Tobacco: Never Alcohol Use Standard Drinks/Week Comments Yes 6 (1 standard drink = 0.6 oz pur e alcohol) [facility] Utilities Answer Date Recorded In the [...] your living situation today? I have a [facility] place to live 07/04/2024 Sex and [...] type of surgery. In general, we recommend lmlx-ckb-bskyupj pain medications such as Extra Strength Tylenol. [...] evaluation. Any questions or concerns please call [phone] (Business hours) [phone] (Evenings and weekends, ask for the Manager French operations accountant) documented in this encounter Medications at Time [...] (HCC) Post-op Diagnosis Hemorrhage Vitreous Right (HCC) Locomotive Oiler A assistant strength coach actively participated and was necessary for one [...] CDT Ancillary Procedure Department of Ophthalmology in [place], [place] [address] [place] [phone] Rere Nair M.D., Ph.D. [address] [place] [phone] 08/01/2024 2:00 PM CDT Procedure visit Department of Ophthalmology in [place], [place] [address] [place] [address] Rere Nair M.D., Ph.D. [address] [place] [phone] 08/01/2024 2:15 PM CDT Ancillary Procedure Department of Ophthalmology in [place], [place] [address] [place] [phone] Rere Nair M.D., Ph.D. [address] [place] [phone] 08/01/2024 2:45 PM CDT Ancillary Procedure Department of Ophthalmology in [place], [place] [address] [place] [phone] Rere Nair M.D., Ph.D. [address] [place] [phone] 08/01/2024 3:00 PM CDT Office Visit Department of Ophthalmology in [address] [phone] Rere Nair M.D., Ph.D. [address] [place] [phone] documented as of this encounter Procedures Procedure Name Priority Date/Time Associated Diagnosis Comments VITRECTOMY - PARS PLANA 25 GAUGE 07/08/2024 10:48 AM CDT Hemorrhage Vitreous Right (HCC) Case Notes Director Of Hotel Operations @ 1012. TPU 11. GLUCOSE POCT, B [...] Unknown Provider LAB POCT ORDERABLES- MANUAL POC [facility] [address] [place] [address], [facility] PCLX [facility] [place] [facility] [address] [place] [address] documented in this encounter Visit Diagnoses Diagnosis Hemorrhage Vitreous Right (HCC)- Primary Retirement Use Of Insulin Active (HCC) documented in [...] than or equal to 300: Call anesthesia wlnwgvvfc-SXMkangoace-fbswxzwjygbj e human recombinant (Ophthalmic Block Solution #4) 9.3 mg-3.5 mg-11.2 Units/mL 20.1 mL (COMPLETED) 20.1 mL, ophthalmic, Once in surgery, OR use only, Starting on Sun07/08/24 at 1109, For 1 dose, Intra-Op 1109 (Given - Provid er: Nioc Mckeon M.D., Ph.D.) neomycin-polymyxin B-dexameth ophthalmic ointment [...] NPO) documented in this encounter Care Teams Lsat Instructor Relationship Specialty Start Date End Date Elsewhere, Pcp PCP - General Internal Medicine 07/03/24 documented as of this encounter
--- OUTSIDE RECORDS SUMMARY | 2024-07-29 13:20 | XMS_ITS | Encounter Summary ---
Author Organization [facility] Address [address] [place] [phone] Care Team Providers Care Cyber Special Agent Name Role Phone Elsewhere, Pcp Primary Care Provider Unavailabl e Reason for Visit * Auth/Cert (Routine) Specialty Diagnoses / Procedures Referred By Zev garner Referred To Contact Diagnoses Hemorrhage Vitreous Right (HCC) Hemorrhage Vitreous Right (HCC) [H43.11] Procedures [place] VITRECTOMY [facility] PARS PLANA 25G pars plana vitrectomy, endolaser, air, possible gas and all other associated procedures right eye Rere Nair M.D., Ph.D. [address] [place] [phone] Referral ID Status Reason Start Date Expiration Date Visits Re quested Visits Authorized [id number] 1 1 Encounter Details Date Type Department Care Team (Late st Contact Info) Description 07/08/2024 10:58 AM CDT Anesthesia Event RST RONT MAIN OR [address] [place] [phone] Makayla Jones APRN, CRNA, D.N.P. [address] [place] [phone] Eduin Kay M.D. [address] [place] [phone] Anesthesia Record Procedure Summary Procedure Name [...] drink = 0.6 oz pur e alcohol) [facility] Utilities Answer Date Recorded In the past 12 months has [employer], gas, oil, or water [employer] threatened to shut off services in your [...] your living situation today? I have a [facility] place to live 07/04/2024 Sex and [...] RM OR 311 RONT 03 808 / [facility], [facility] in [place], [place] Providers: Rere Nair M.D., Ph.D. Pertinent [...] with patient /legal guardian or through an venetian blind installer. The use of blood products not discussed Approval to Proceed: approved for anesthesia documented in this encounter Plan of Treatment Upcoming Encounters Date Type Department Care Team (Late st Contact Info) Description 08/01/2024 1:30 PM CDT Ancillary Procedure Department of Ophthalmology in [place], [place] [address] [place] [phone] Rere Nair M.D., Ph.D. [address] [place] [phone] 08/01/2024 2:00 PM CDT Procedure visit Department of Ophthalmology in [place], [place] [address] [place] [phone] Rere Nair M.D., Ph.D. [address] [place] [phone] 08/01/2024 2:15 PM CDT Ancillary Procedure Department of Ophthalmology in [place], [place] [address] [place] [phone] Rere Nair M.D., Ph.D. [address] [place] [phone] 08/01/2024 2:45 PM CDT Ancillary Procedure Department of Ophthalmology in [place], [place] [address] [place] [phone] Rere Nair M.D., Ph.D. [address] [place] [phone] 08/01/2024 3:00 PM CDT Office Visit Department of Ophthalmology in [place], [place] [address] [place] [phone] Rere Nair M.D., Ph.D. [address] [place] [phone] documented as of this encounter Visit Diagnoses [...] mg documented in this encounter Care Teams Cyber Special Agent Relationship Specialty Start Date End Date Elsewhere, Pcp PCP - General Internal Medicine 07/03/24 documented as of this encounter
--- OUTSIDE RECORDS SUMMARY | 2024-07-29 13:20 | XMS_ITS | Referral Summary ---
Author Organization [facility] Address [address] [place] [address] Care Team Providers Care Engineering Team Supervisor Name Role Phone Elsewhere, Pcp Primary Care Provider Unavailabl e Source Comments Patient records contain information from all sites at [facility]. For routine questions regarding patient records, call [phone] during business hours, M-F 8:00 AM - 5:00 PM Central Time. Record requests for emergency care only can be directed to [phone] at any time.[facility] Encounters Date Type Department Care Team Description 07/21/2024 8:00 AM CDT Office Visit Department of Ophthalmology in [place], [place] [address] [place] [phone] Rere Nair M.D., Ph.D. 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 Hemorrhage Vitreous Right (HCC) (Primary Dx) 07/08/2024 10:55 AM CDT Ancillary Procedure Department of General Surgery 07/08/2024 10:58 AM CDT Anesthesia Event RST RONT MAIN OR [address] [place] [address] [place] [phone] Makayla Jones APRN, ANITA, D.N.P. Eduin Kay M.D. 07/08/2024 12:11 PM CDT - 07/08/2024 2:26 PM CDT Surgery RST [facility] OR [address] [place] [phone] Rere Nair M.D., Ph.D. 25G pars plana vitrectomy, endolaser, air bubble, avastin injection to right eye. 07/08/2024 10:08 AM CDT - 07/08/2024 1:33 PM CDT Hospital Encounter RST [facility] OR [address] [place] [phone] Rere Nair M.D., Ph.D. Discharge Disposition: Home or Self Care 07/04/2024 Clinical Communication Department of Ophthalmology in [place], [place] [address] [place] [phone] Rere Nair M.D., Ph.D. 07/04/2024 3:00 PM CDT Comprehensive Visit Preoperative Evaluation Center in [place], [place] [address] [place] [phone] Rere Nair M.D., Ph.D. Mega Triplett APRN, C.N.P., M.S. 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 Hemorrhage Vitreous Right (HCC) Discharge Disposition: Home or Self Care 06/25/2024 Orders Only Department of Ophthalmology in [place], [place] [address] [place] [phone] Enid Sawant C.O.A. Hemorrhage Vitreous Right (HCC) (Primary Dx) 06/25/2024 12:05 AM CDT Ancillary Procedure Department of Ophthalmology 06/25/2024 Ancillary Procedure Department of Ophthalmology 06/25/2024 10:00 AM CDT Ancillary Procedure Department of Ophthalmology in [place], [place] [address] [place] [phone] Rere Nair M.D., Ph.D. Hemorrhage Vitreous Right (HCC) 06/25/2024 11:00 AM CDT Comprehensive Visit Department of Ophthalmology in [place], [place] [address] [place] [phone] Rere Nair M.D., Ph.D. Hemorrhage Vitreous Right (HCC) (Primary Dx) 06/24/2024 3:20 PM CDT Ancillary Procedure Department of Ophthalmology 06/24/2024 Ancillary Procedure Department of Ophthalmology 06/24/2024 1:30 PM CDT Ancillary Procedure Department of Ophthalmology in [place], [place] [address] [place] [phone] Rere Nair M.D., Ph.D. Hemorrhage Vitreous Right (HCC) 06/24/2024 2:15 PM CDT Ancillary Procedure Department of Ophthalmology in [place], [place] [address] [place] [phone] Rere Nair M.D., Ph.D. 06/24/2024 2:00 PM CDT Procedure visit Department of Ophthalmology in [place], [place] [address] [place] [phone] Rere Nair M.D., Ph.Wilmer Dey CNoemi Hemorrhage Vitreous Right (HCC) 06/12/2024 Clinical Communication Department of Ophthalmology in [place], [place] [address] [place] [phone] Rere Nair M.D., Ph.D. 06/11/2024 Orders Only Department of Ophthalmology in [place], [place] [address] [place] [phone] Rere Nair M.D., Ph.D. Hemorrhage Vitreous Right (HCC) (Primary Dx) 06/11/2024 Clinical Communication Department of Ophthalmology in [place], [place] [address] [place] [address] Rere Nair M.D., Ph.D. 06/09/2024 Clinical Communication Department of Ophthalmology in [place], [place] [address] [place] [phone] Melanie Adams O.D. 06/05/2024 [facility] Orders [facility] EYE [facility] [address] [phone] Bob Velasco M.D. Hemorrhage Vitreous Right (HCC) (Primary Dx) 04/30/2024 [facility] [address] [phone] Bob Velasco M.D. Hemorrhage Vitreous Right (HCC) [...] And Parasitic Disease (COVID-19) 07/04/2024 Hyperlipidemia 06/25/2024 Film Splicer Use Of Insulin Active 06/25/2024 Hemorrhage Vitreous [...] Plan (06/20/2024 2:20 PM CDT): Seen at [facility]. Has had 4 Vabysmo injections without [...] = 0.6 oz pur e alcohol) [facility] Utilities Answer Date Recorded In the [...] CDT Ancillary Procedure Department of Ophthalmology in [place], [place] [address] [place] [phone] Rere Nair M.D., Ph.D. [address] [place] [phone] 08/01/2024 2:00 PM CDT Procedure visit Department of Ophthalmology in [place], [place] [address] [place] [phone] Rere Nair M.D., Ph.D. [address] [place] [phone] 08/01/2024 2:15 PM CDT Ancillary Procedure Department of Ophthalmology in [place], [place] [address] [place] [phone] Rere Nair M.D., Ph.D. [address] [place] [phone] 08/01/2024 2:45 PM CDT Ancillary Procedure Department of Ophthalmology in [place], [place] [address] [place] [phone] Rere Nair M.D., Ph.D. [address] [place] [phone] 08/01/2024 3:00 PM CDT Office Visit Department of Ophthalmology in [place], [place] [address] [place] [phone] Rere Nair M.D., Ph.D. [address] [place] [phone] Procedures Procedure Name Priority Date/Time Associated Diagnosis Comments SURGERY IMAGE EXAM Routine 07/08/2024 10 :55 AM CDT VITRECTOMY - PARS PLANA 25 GAUGE 07/08/2024 10:48 AM CDT Hemorrhage Vitreous Right (HCC) Case Notes Applications Scientist @ 1012. TPU 11. GLUCOSE POCT, B [...] RAD IMAGI NG PROCEDURES Performing Organization Address City/[facility]/ZIP Co de Phone Number IIPR NA * (ABNORMAL) Glucose, POCT (07/08/2024 10:42 AM CDT) Glucose, POCT, B 146(H) 70 - 140 mg/dL 07/08/2024 10:56 AM CDT PCLX Comment: Glucose results collected from venous catheters may be falsely elevated. Site Venline 07/08/2024 10:56 AM CDT PCLX Blood 07/08/2024 10:4 2 AM CDT 07/08/2024 10:56 AM CDT Unknown Provider LAB POCT ORDERABLES- MANUAL POC [facility] [address] [place] [address], [facility] PCLX [facility] POC [address] [place] [address] * (ABNORMAL) Hemoglobin A1c (06/25/2024 11:49 AM [...] Ph.D. LAB BLOOD ADD-ON Performing Organization Address [facility] de Phone Number [facility] [address] [place] [address], [facility] [address] [place] [address] * B-Scan Ultrasound - OD - Right Eye (06/25/2024 10:57 AM CDT) Narrative OPHTHALMOLGY NON-IMAGING ORDERS - 06/25/2024 11:11 AM CDT 06/25/2024 B-scan Right Eye: Possible partial vitreous detachment, attached at the nerve, moderate to dense vitreous opacities most notably at 12PE. No traction noted on kinetic exam, retina appears attached. ?? JH Rere Nair M.D., Ph.D. OPHTH ULTR ASOUND Performing Organization Address [facility] de Phone Number OPHTHALMOLGY NON-IMAGING ORDERS * Video-Eyes US-Eye [id number] Image Exam (06/25/2024 12:05 AM CDT) Only [...] RAD IMAGI NG PROCEDURES Performing Organization Address [facility] de Phone Number IIMS NA * Optical [...] Ph.D. OPH BRIAN GRAPHY Performing Organization Address [facility] Co de Phone Number OPHTHALMOLOGY IMAGING EXAM [...] encounter for interpretation. Rere Nair M.D., Ph.D. [facility] PHOT OGRAPHY Performing Organization Address [facility] de Phone Number OPHTHALMOLOGY IMAGING EXAM from Last 3 Months Care Teams Engineering Team Supervisor Relationship Specialty Start Date End Date Elsewhere, Pcp PCP - General Internal Medicine 07/03/24
--- OUTSIDE RECORDS SUMMARY | 2024-07-29 13:20 | XMS_ITS | Encounter Summary ---
Author Organization [facility] Address [address] [place] [address] Care Team Providers Care Manager Gift Name Role Phone Elsewhere, Pcp Primary Care Provider Unavailabl e Reason for Visit * Outpatient (Routine) - Closed Specialty Diagnoses / Procedures Referred By Zev t Referred To Contact Anesthesiology Diagnoses Hemorrhage Vitreous Right (HCC) Rere Nair M.D., Ph.D. [address] [place] [phone] [facility] Referral ID Status Reason Start Date Expiration Date Visits Re quested Visits Authorized [id number] Closed 06/25/2024 12/25/2025 1 1 Encounter Details Date Type Department Care Team (Latest Contact Info) Description 07/04/2024 3:00 PM CDT Comprehensive Visit Preoperative Evaluation Center in [place], [place] [address] [place] [phone] Rere Nair M.D., Ph.D. [address] [place] [address] [phone] Mega Triplett, NILA, C.N.P., M.S. 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 I have a [facility] place to live 07/04/2024 Sex and [...] VITRECTOMY - PARS PLANA 25 GAUGE; Rere Niar M.D., Ph.D. Surgery Specific Risk Classification: Low [...] from 07/04/2024 in Preoperative Evaluation Center in [place], [place] DASI Total Score 36.7 Estimated V02 [...] Diabetic Retinopathy Without Macular Edema Bilateral(HCC) #8 Applications Analyst Use Of Insulin Active (HCC) Treated with [...] Get Ready for Your Surgery or Procedure: [facility] 3596-07 rev 0124. Written and verbal instructions [...] CDT Ancillary Procedure Department of Ophthalmology in [place], [place] [address] [place] [phone] Rere Nair M.D., Ph.D. [address] [place] [phone] 08/01/2024 2:00 PM CDT Procedure visit Department of Ophthalmology in [place], [place] [address] [place] [phone] Rere Nair M.D., Ph.D. [address] [place] [phone] 08/01/2024 2:15 PM CDT Ancillary Procedure Department of Ophthalmology in [address] [phone] Rere Nair M.D., Ph.D. [address] [place] [phone] 08/01/2024 2:45 PM CDT Ancillary Procedure Department of Ophthalmology in [address] [phone] Rere Nair M.D., Ph.D. [address] [place] [phone] 08/01/2024 3:00 PM CDT Office Visit Department of Ophthalmology in [address] [phone] Rere Nair M.D., Ph.D. 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
--- OUTSIDE RECORDS SUMMARY | 2024-07-29 13:20 | XMS_ITS | Encounter Summary ---
Author Organization [facility] Address [address] [place] [address] Care Team Providers Care Private Detective Name Role Phone Elsewhere, Pcp Primary Care Provider Unavailabl e Reason for Visit * Outpatient (Routine) - Closed Specialty Diagnoses / Procedures Referred By Zev t Referred To Contact Ophthalmology Rere Nair M.D., Ph.D. [address] [place] [phone] [facility] Referral ID Status Reason Start Date Expiration Date Visits Re quested Visits Authorized [id number] Closed 06/25/2024 12/25/2025 1 1 Encounter Details Date Type Department Care Team (Latest Contact Info) Description 07/09/2024 8:00 AM CDT Office Visit Department of Ophthalmology in [place], [place] [address] [place] [phone] Rere Nair M.D., Ph.D. [address] [place] [phone] Hemorrhage Vitreous Right (HCC) (Primary Dx) Social History Tobacco Use Types Packs/Day Years Used Date Smoking Tobacco: Never Smokeless Tobacco: Never Alcohol Use Standard Drinks/Week Comments Yes 6 (1 standard drink = 0.6 oz pur e alcohol) [facility] Utilities Answer Date Recorded In [...] your living situation today? I have a [facility] place to live 07/04/2024 Sex and Gender Information Value Date Recorded Sex Assigned at Female 07/04/2024 1:43 PM CDT Gender Identity Female 07/04/2024 1:43 PM CDT Sexual Orientation Straight 07/04/2024 1: 43 PM CDT documented as of this encounter Progress Notes * Rere Nair M.D., Ph.D. - 07/09/2024 8:00 AM CDT Images from the original note were not included. Retina Post-operative Note, [facility] at [place], [place] Post-operative day #1: Status post pars [...] notes for descriptions of previous imaging See [facility] ophthalmology module for exam information. Assessment: 07/09/2024 [...] Letters to: Dr. Mike Nair MD, PhD Beam Dyer Punching Machine Operator Vitreoretinal Surgery & Diseases [facility], Department of Ophthalmology [address] [place] [phone] documented in this encounter Miscellaneous Notes * [...] CDT Ancillary Procedure Department of Ophthalmology in [address] [phone] Rere Nair M.D., Ph.D. [address] [place] [phone] 08/01/2024 2:00 PM CDT Procedure visit Department of Ophthalmology in [address] [phone] Rere Nair M.D., Ph.D. [address] [place] [phone] 08/01/2024 2:15 PM CDT Ancillary Procedure Department of Ophthalmology in [place], [place] [address] [place] [phone] Rere Nair M.D., Ph.D. [address] [place] [phone] 08/01/2024 2:45 PM CDT Ancillary Procedure Department of Ophthalmology in [place], [place] [address] [place] [phone] Rere Nair M.D., Ph.D. [address] [place] [phone] 08/01/2024 3:00 PM CDT Office Visit Department of Ophthalmology in [place], [place] [address] [place] [phone] Rere Nair M.D., Ph.D. 200 [place] [phone] documented as of this encounter Visit Diagnoses Diagnosis Hemorrhage Vitreous Right (HCC)- Primary documented in this encounter Care Teams Private Detective Relationship Specialty Start Date End Date Elsewhere, Pcp PCP - General Internal Medicine 07/03/24 documented as of this encounter
--- OUTSIDE RECORDS SUMMARY | 2024-07-29 13:20 | XMS_ITS | Encounter Summary ---
Author Organization [facility] Address [address] [place] [address] Care Team Providers Care Billing Administrator Name Role Phone Unavailable Primary Care Provider [...] CDT Ancillary Procedure Department of Ophthalmology in [place], [place] [address] [place] [phone] Rere Nair M.D., Ph.D. [address] [place] [phone] 08/01/2024 2:00 PM CDT Procedure visit Department of Ophthalmology in [place], [place] [address] [place] [phone] Rere Nair M.D., Ph.D. [address] [place] [phone] 08/01/2024 2:15 PM CDT Ancillary Procedure Department of Ophthalmology in [place], [place] [address] [place] [phone] Rere aNir M.D., Ph.D. [address] [place] [phone] 08/01/2024 2:45 PM CDT Ancillary Procedure Department of Ophthalmology in [place], [place] [address] [place] [phone] Rere Nair M.D., Ph.D. [address] [place] [phone] 08/01/2024 3:00 PM CDT Office Visit Department of Ophthalmology in [place], [place] [address] [place] [phone] Rere Nair M.D., Ph.D. [address] [place] [phone] documented as of this encounter Procedures Procedure Name Priority Date/Time Associated Diagnosis Comments OPHTHALMOLOGY IMAGE EXAM Routine 06/25/2024 12:05 AM CDT documented in this encounter Results * Video-Eyes US-Eye [id number] Image Exam (06/25/2024 12:05 AM CDT) Narrative [...]
--- OUTSIDE RECORDS SUMMARY | 2024-07-29 13:20 | XMS_ITS ---
Author Organization [facility] Address [address] [place] [address] Care Team Providers Care Director Of Vocational Guidance Name Role Phone Unavailable Unavailable Unavailable Surgery Details Not on file Complications Check Surgery Details section. Procedure Estimated Blood Loss Check Surgery Details section. Procedure Findings Check Surgery Details section. Procedure Specimens Taken Check Surgery Details section.
--- OUTSIDE RECORDS SUMMARY | 2024-07-29 13:21 | XMS_ITS | Encounter Summary ---
Author Organization [facility] Address [address] [place] [address] Care Team Providers Care Business Analyst Project Manager Name Role Phone Unavailable Primary Care Provider Unavailabl e Encounter Details Date Type Department Care Team (Latest Contact Info) Description 06/24/2024 1:30 PM CDT Ancillary Procedure Department of Ophthalmology in [place], [place] [address] [place] [phone] Rere Nair M.D., Ph.D. [address] [place] [phone] Hemorrhage Vitreous Right (HCC) Social History Tobacco [...] CDT Ancillary Procedure Department of Ophthalmology in [place], [place] [address] [place] [phone] Rere Nair M.D., Ph.D. [address] [place] [phone] 08/01/2024 2:00 PM CDT Procedure visit Department of Ophthalmology in [place], [place] [address] [place] [phone] Rere Nair M.D., Ph.D. [address] [place] [phone] 08/01/2024 2:15 PM CDT Ancillary Procedure Department of Ophthalmology in [place], [place] [address] [place] [phone] Rere aNir M.D., Ph.D. [address] [place] [phone] 08/01/2024 2:45 PM CDT Ancillary Procedure Department of Ophthalmology in [address] [phone] Rere Nair M.D., Ph.D. [address] [place] [phone] 08/01/2024 3:00 PM CDT Office Visit Department of Ophthalmology in [address] [phone] Rere Nair M.D., Ph.D. [address] [place] [phone] documented as of this encounter Procedures Procedure [...] interpretation. Rere Nair M.D., Ph.D. OPH [facility] OPHTHALMOLOGY IMAGING EXAM documented in this encounter Visit Diagnoses Diagnosis Hemorrhage Vitreous Right (HCC) documented in this encounter
--- OUTSIDE RECORDS SUMMARY | 2024-07-29 13:21 | XMS_ITS | Encounter Summary ---
Author Organization [facility] Address [address] [place] [address] Care Team Providers Care Efficiency Engineer Name Role Phone Unavailable Primary Care [...] CDT Ancillary Procedure Department of Ophthalmology in [place], [place] [address] [place] [phone] Rere Nair M.D., Ph.D. [address] [place] [phone] 08/01/2024 2:00 PM CDT Procedure visit Department of Ophthalmology in [place], [place] [address] [place] [phone] Rere Nair M.D., Ph.D. [address] [place] [phone] 08/01/2024 2:15 PM CDT Ancillary Procedure Department of Ophthalmology in [place], [place] [address] [place] [phone] Rere Nair M.D., Ph.D. [address] [place] [phone] 08/01/2024 2:45 PM CDT Ancillary Procedure Department of Ophthalmology in [place], [place] [address] [place] [phone] Rere Nair M.D., Ph.D. [address] [place] [phone] 08/01/2024 3:00 PM CDT Office Visit Department of Ophthalmology in [place], [place] [address] [place] [phone] Rere Nair M.D., Ph.D. [address] [place] [phone] documented as of this encounter Procedures Procedure [...]
--- OUTSIDE RECORDS SUMMARY | 2024-07-29 13:21 | XMS_ITS | Encounter Summary ---
Author Organization [facility] Address [address] [place] [address] Care Team Providers Care Vehicle Damage Appraiser Name Role Phone Unavailable Primary Care Provider [...] CDT Ancillary Procedure Department of Ophthalmology in [place], [place] [address] [place] [phone] Rere Nair M.D., Ph.D. [address] [place] [phone] 08/01/2024 2:00 PM CDT Procedure visit Department of Ophthalmology in [place], [place] [address] [place] [phone] Rere Nair M.D., Ph.D. [address] [place] [phone] 08/01/2024 2:15 PM CDT Ancillary Procedure Department of Ophthalmology in [place], [place] [address] [place] [phone] Rere Nair M.D., Ph.D. [address] [place] [phone] 08/01/2024 2:45 PM CDT Ancillary Procedure Department of Ophthalmology in [place], [place] [address] [place] [phone] Rere Nair M.D., Ph.D. [address] [place] [phone] 08/01/2024 3:00 PM CDT Office Visit Department of Ophthalmology in [place], [place] [address] [place] [phone] Rere Nair M.D., Ph.D. [address] [place] [phone] documented as of this encounter Procedures Procedure [...]
--- OUTSIDE RECORDS SUMMARY | 2024-07-29 13:21 | XMS_ITS | Clinical Summary ---
Author Organization [facility] Address [place], [place] [address] Care Team Providers Care Modeling Analyst Name Role Phone Darryl [place] MD [...] day. 1 Device prn 11/06/2013 Active Insulin Buckner, Disposable, (NOVOFINE 32) 32 x 1/4 Indications:Type [...] hematuria/proteinuria, left renal atrophy TESTING PLANS: ZAINAB: [facility] 09/18/2013, op report from 2003 (LST X 2) scanned 09/30/13 REFERRING PHYSICIAN: Dr Snehal Mendoza, [place] SPECIALISTS: PDC CHILD CARE PROVIDER: CARE COORDINATION: CONSULTS: PROCEDURES: MEDS: Vitamin D plans: drawn 09/18/2013 = 14.1. 09/30/2013: Encouraged to slat pickler OTC, if cost prohibitive will waiting to [...] GENETICS: Date: 09/30/13 Counselor: BEAR Plan: Normal Halma screen DELIVERY PLANS: Unsure-Planning/Not planning Tubal Ligation [...] supplementation Screening Genetic counseling today, leaning toward [id number] NICU/Surgery consult Not at this time Delivery [...] and Diabetes Clinic: See's Dr Uriostegui at [facility], her last visit 11/06/13--- Never rescheduled after several attempts. Regular astigmatism 03/27/2007 Myopia 03/27/2007 Encounters Date Type Department Care Team Description 06/04/2024 Lab Requisition [facility] [phone] Barb Rosales MD 05/21/2024 Orders Only [facility] SERVICES Scanner 1 scan: (1-Ord) EMILIO, XR SHOULDER LT MIN 2V, 05/21/2024 05/01/2024 3:45 PM CDT Orders Only [facility] [address] [place] [address] Lab, [place] [facility] 05/01/2024 2:45 PM CDT Telemedicine [facility] [address] [place] [address] Mary Fry MD Covid-19 Positive Result 05/01/2024 [...] Status Comments Brother Daughter Father (Age 60) [place] Maternal Grandmother Mother (Age 55) [place] Paternal Grandmother Son Social History Tobacco Use [...] M CS-Un spec Livin g Thuan Delivery Location:[place] Comments:Failed IOL, P P infection 004 Term 39w 0d 4.25 kg (9 lb 6 oz) F CS-Un spec Livin g Mely Delivery Location:[place] Comments:elective repe at Last Filed Vital Signs Vital Sign Reading Time Taken Comments Blood Pressure 150/84 12/02/2019 9:41 AM PHOTO CHECKER AND ASSEMBLER Pulse 65 12/02/2019 9:41 AM PHOTO CHECKER AND ASSEMBLER Temperature 36.8 ??C (98.2 ??F) 12/02/2019 9:41 AM CS T Respiratory Rate 16 04/13/2014 8:57 AM CDT Oxygen Saturation 100% 12/02/2019 9:41 AM PHOTO CHECKER AND ASSEMBLER Inhaled Oxygen Concentration - - Weight 83.9 kg (185 lb) 12/02/2019 9:41 AM PHOTO CHECKER AND ASSEMBLER Height 165.1 cm (5' 5) 02/17/2016 8:38 [...] booster 02/10/2024 02/09/2014, 11/2005 (Completed outside of [facility]), 11/05/2005 COVID-19 vaccine series ( season) 2024 07/01/2021, 01/28/2021 Influenza for age 50-64 07/06/2024 10/19/2008, 09/05 Pap test for age 21-65 06/03/2027 4, 06/03/2024, 02/17/2016, Additional history exists HIV for age 15-65 Completed 08/19/2013 Tdap Completed 02/09/2014, 11/05/2005 Medical Devices Implanted Type Area Slot Machine Repairer Device Identifier Shelf Expiration Date Model / Serial / Lot Stent Prcflx [id number] Hydpls - [id number] Implanted:Qty: 1 on 08/31/2011 at Left: [facility] [id number]# / / [id number] Stent Prcflx [id number] Hydpls - [id number] Implanted:Qty: 1 on 09/21/2011 at Left: [employer] [facility] 06/05/2014 [id number]# / / [id number] Explanted Type Area Slot Machine Repairer Device Identifier Shelf Expiration Date Model / Serial / Lot Stent Prcflx [id number] Hydpls - [id number] Implanted:Kp Alanis MD (Quantity not on file) Explanted:Qty: 1 on 08/31/2011 at Left: [facility] [facility] [id number]# / / [id number] Procedures Procedure Name Priority Date/Time Associated Diagnosis Comments LAB TRACKING EVENT Routine 06/04/2024 12:00 PM CDT CREDIT COLLECTOR THIN PREP PAP SCREEN IMAGED Routine 06/03/2024 [...] CDT Barb Rosales MD LAB BILL ONLY [facility] [address] [place] [id number], * CREDIT COLLECTOR THIN PREP PAP SCREEN IMAGED (06/03/2024 12:00 PM CDT) Case Report Gynecologic Cytology Report ? Case: [id number] ? Authorizing Provider: ??Barb Rosales MD ??Collected: ? 06/03/2024 1200 ? Ordering Location: ? [facility] ?Received: ?06/05/2024 0935 ? First Screen: ?Ruth, Malcolm ? Specimen: ?CREDIT COLLECTOR ThinPrep Vial Screening, Cervical ? 06/10/2024 3:37 PM CDT [facility] INTERPRETATION/ RESULT NEGATIVE FOR INTRAEPITHELIAL LESION OR MALIGNANCY (NIL) (none) 06/10/2024 3:37 PM CDT [facility] IMEN ADEQUACY Satisfactory for evaluation Endocervical component present 06/10/2024 3:37 PM CDT [facility] HPV REQUEST HPV and PAP 06/10/2024 3:37 PM CDT [facility] Last Pap Date 06/10/2024 3:37 PM CDT [facility] Comment:Unknown Abnormal Pap or [place] Bx in last 5 years No 06/10/2024 3:37 PM CDT [facility] Menstrual Status Irregular Periods 06/10/2024 3:37 PM CDT [facility] [place] Bx Done Today No 06/10/2024 3:37 PM CDT [facility] Additional Information 06/10/2024 3:37 PM CDT [facility] Comment: Interpreted at [facility] - [address] [place] [address], [place] [address] Automated Review Successful 06/10/2024 3:37 PM CDT [facility] Comment:Specimen processed s uccessfully by automated cmv driver device, ThinPrep Imaging System, [employer] ANCILLARY TESTING CREDIT COLLECTOR HPV Ordered, Please see separate report 06/10/2024 3:37 PM CDT [facility] Note The pap test is a [...] and malignant lesions. 06/10/2024 3:37 PM CDT [facility] Other (Cervical) 06/03/2024 12:00 PM CDT 06/05/2024 9:35 AM CDT Barb Rosales MD PATHOLOGY/CYTOLO GY Performing Organization Address [facility] Co de Phone Number [facility] [address] * HPV HIGH RISK (06/03/2024 12:00 PM CDT) TYPE 16 Negative Negative 06/06/2024 2:34 PM CDT [facility] TYPE 18 Negative Negative 06/06/2024 2:34 PM CDT [facility] OTHER HIGH RISK TYPES Negative Negative 06/06/2024 2:34 PM CDT [facility] Other (Cervical) 06/03/2024 12:00 PM CDT 06/05/2024 9:35 AM CDT Narrative [facility] - 06/06/2024 2:34 PM CDT HPV types 16, 18, 31, 33, 35, 39, 45, 51, 52, 56, 58, 59, 66 and 68 DNA were undetectable or below the pre-set threshold. Methodology: Kesha John 4800 HPV Test Barb Rosales MD MICROBIOLOGY Performing Organization Address [facility] de Phone Number [facility] [address] * SCAN-RADIOLOGY REPORT (05/21/2024 12:00 AM CDT) Anatomical Region Laterality Modality Other Scanner OTHER * (ABNORMAL) CREATININE,ISTAT (05/01/2024 4:02 PM CDT) CREATININE, POCT 0.80 0.57 - 1.11 mg/dL 05/01/2024 4:08 PM CDT [facility] Comment:Caution: Patients ta clarissa Hydroxyurea have falsely increased iStat Creatinine results. Verify creatinine results ordering a Creatinine (06021.2) eGFR 89(L) >90 mL/min/1.7 3m2 05/01/2024 4:08 PM CDT [facility] Comment:As of 2022, eG FR is calculated by the CKD-EPI creatinine equation without race adjustment. eGFR can be influenced by muscle mass, exercise, and diet. The reported eGFR is an estimation only and is only applicable if the renal function is stable. Blood BLOOD SPECIMEN / Unknown 05/01/2024 4:02 PM CDT 05/01/2024 4:07 PM CDT Mary Fry MD CHEMISTRY [facility] [address] [place] [address], * XR FFDM MAMMO SCREENING BILATERAL SSP [...] of Computer-Aided Detection. COMPARISON FILMS: Yes 02/22/15 [facility] FINDINGS: ??Mammographically, the breast tissue has scattered fibroglandular densities. ??No suspicious masses or microcalcifications. ?? Benign appearing calcifications within both breasts. Snehal Mendoza MD MAMMO * (ABNORMAL) LIPID PANEL W REFLEX MEASURED LDL (02/24/2015 2:27 PM CDT) CHOLESTEROL,TOTAL 240(H) 100 - 199 mg/dL 02/24/2015 3:12 PM CDT [facility] TRIGLYCERIDES 298(H) <150 mg/dL 02/24/2015 3:12 PM CDT [facility] HDL CHOLESTEROL 56 >40 mg/dL 5 3:12 PM CDT [facility] NON-HDL CHOLESTEROL 184(H) <145 mg/dl 02/24/2015 3:12 PM CDT [facility] CHOL/HDL RATIO 4.29 <4.50 02/24/2015 3:12 PM CDT [facility] LDL CHOLESTEROL 124 <=130 mg/dL 02/24/2015 3:12 PM CDT [facility] PATIENT STATUS NON-FASTI NG 02/24/2015 3:12 PM CDT [facility] Blood specimen (specimen) BLOOD SPECIMEN / Unknown Venipuncture / Unknown 02/24/2015 2:27 PM CDT 02/24/2015 2:29 PM CDT Naina HUNT CHEMISTRY [facility] [address] [place] [address], * ANTI HIV 1/2 (08/19/2013 10:07 AM CDT) ANTI HIV 1/2 Non-reacti ve [facility] Blood specimen (specimen) BLOOD SPECIMEN / Unknown 08/19/2013 10:07 AM CDT 08/19/2013 9:53 AM CDT Snehal Mendoza MD SEND OUTS [facility] INTERNAL ZIP [address] [place] [phone] from Last 3 Months or Most Recently [...] 10:01 AM 08/31/2011 5:22 PM Care Teams Modeling Analyst Relationship Specialty Start Date End Date Pcp, No . PCP - General 11/07/19 Darryl Richmond MD Urology Surgery - Urology 04/29/13
--- OUTSIDE RECORDS SUMMARY | 2024-07-29 13:21 | XMS_ITS | Encounter Summary ---
Author Organization [facility] Address [address] [place] [address] Care Team Providers Care Metal Filer Name Role Phone Unavailable Primary Care Provider Unavailabl e Encounter Details Date Type Department Care Team (Late st Contact Info) Description 06/05/2024 [facility] EYE [facility] [address] [phone] Bob Velasco M.D. [address] [phone] Hemorrhage Vitreous Right (HCC) (Primary Dx) Social [...] CDT Ancillary Procedure Department of Ophthalmology in [place], [place] [address] [place] [phone] Rere Nair M.D., Ph.D. [address] [place] [phone] 08/01/2024 2:00 PM CDT Procedure visit Department of Ophthalmology in [place], [place] [address] [place] [phone] Rere Nair M.D., Ph.D. [address] [place] [phone] 08/01/2024 2:15 PM CDT Ancillary Procedure Department of Ophthalmology in [place], [place] [address] [place] [phone] Rere Nair M.D., Ph.D. [address] [place] [phone] 08/01/2024 2:45 PM CDT Ancillary Procedure Department of Ophthalmology in [place], [place] [address] [place] [phone] Rere Nair M.D., Ph.D. [address] [place] [phone] 08/01/2024 3:00 PM CDT Office Visit Department of Ophthalmology in [address] [phone] Rere Nair M.D., Ph.D. [address] [place] [phone] documented as of this encounter Visit Diagnoses Diagnosis Hemorrhage Vitreous Right (HCC)- Primary documented in this encounter
--- OUTSIDE RECORDS SUMMARY | 2024-07-29 13:21 | XMS_ITS | Encounter Summary ---
Author Organization [facility] Address [address] [place] [address] Care Team Providers Care Direct Mail Marketer Name Role Phone Unavailable Primary Care Provider Unavailabl e Encounter Details Date Type Department Care Team (Latest Contact Info) Description 06/25/2024 10:00 AM CDT Ancillary Procedure Department of Ophthalmology in [place], [place] [address] [place] [phone] Rere Nair M.D., Ph.D. [address] [place] [phone] Hemorrhage Vitreous Right (HCC) Social History Tobacco [...] CDT Ancillary Procedure Department of Ophthalmology in [place], [place] [address] [place] [phone] Rere Nair M.D., Ph.D. [address] [place] [phone] 08/01/2024 2:00 PM CDT Procedure visit Department of Ophthalmology in [place], [place] [address] [place] [phone] Rere Nair M.D., Ph.D. [address] [place] [phone] 08/01/2024 2:15 PM CDT Ancillary Procedure Department of Ophthalmology in [place], [place] [address] [place] [phone] Rere Nair M.D., Ph.D. [address] [place] [phone] 08/01/2024 2:45 PM CDT Ancillary Procedure Department of Ophthalmology in [address] [phone] Rere Nair M.D., Ph.D. [address] [place] [phone] 08/01/2024 3:00 PM CDT Office Visit Department of Ophthalmology in [address] [phone] Rere Nair M.D., Ph.D. [address] [place] [phone] documented as of this encounter Procedures Procedure Name Priority Date/Time Associated Diagnosis Comments B SCAN - OD - RIGHT EYE Routine 06/25/2024 10:57 AM CDT Hemorrhage Vitreous Right (HCC) documented in this encounter Results * B-Scan Ultrasound - OD - Right Eye (06/25/2024 10:57 AM CDT) [facility] OPHTHALMOLGY NON-IMAGING ORDERS - 06/25/2024 11:11 AM [...]
--- OUTSIDE RECORDS SUMMARY | 2024-07-29 13:21 | XMS_ITS | Encounter Summary ---
Author Organization [facility] Address [address] [place] [address] Care Team Providers Care Au Pair Name Role Phone Unavailable Primary Care Provider Unavailabl e Encounter Details Date Type Department Care Team (Late Contact Info) Description 06/24/2024 2:15 PM CDT Ancillary Procedure Department of Ophthalmology in [place], [place] [address] [place] [phone] Rere Nair M.D., Ph.D. [address] [place] [phone] Social History Tobacco Use Types Packs/Day Years [...] CDT Ancillary Procedure Department of Ophthalmology in [place], [place] [address] [place] [phone] Rere Nair M.D., Ph.D. [address] [place] [phone] 08/01/2024 2:00 PM CDT Procedure visit Department of Ophthalmology in [place], [place] [address] [place] [phone] Rere Nair M.D., Ph.D. [address] [place] [phone] 08/01/2024 2:15 PM CDT Ancillary Procedure Department of Ophthalmology in [place], [place] [address] [place] [phone] Rere Nair M.D., Ph.D. [address] [place] [phone] 08/01/2024 2:45 PM CDT Ancillary Procedure Department of Ophthalmology in [place], [place] [address] [place] [phone] Rere Nair M.D., Ph.D. [address] [place] [phone] 08/01/2024 3:00 PM CDT Office Visit Department of Ophthalmology in [address] [phone] Rere Nair M.D., Ph.D. [address] [place] [phone] documented as of this encounter Procedures Procedure Name Priority Date/Time Associated Diagnosis Comments ANGIOGRAPHY - OU - BOTH EYES Routine 06/24/2024 3:49 PM CDT Hemorrhage Vitreous Right (HCC) documented in this encounter Results * Fluorescein Angiography - OU - Both Eyes (06/24/2024 3:49 PM CDT) [facility] OPHTHALMOLOGY IMAGING EXAM - 06/24/2024 10:59 PM [...]
--- OUTSIDE RECORDS SUMMARY | 2024-07-29 13:21 | XMS_ITS | Encounter Summary ---
Author Organization [facility] Address [address] [place] [address] Care Team Providers Care Emergency Vehicle Operations Instructor Name Role Phone Unavailable Primary Care Provider Unavailabl e Encounter Details Date Type Department Care Team (Late st Contact Info) Description 04/30/2024 [facility] EYE [facility] [address] [phone] Bob Velasco M.D. [address] [phone] Hemorrhage Vitreous Right (HCC) (Primary Dx) Social [...] CDT Ancillary Procedure Department of Ophthalmology in [place], [place] [address] [place] [phone] Rere Nair M.D., Ph.D. [address] [place] [phone] 08/01/2024 2:00 PM CDT Procedure visit Department of Ophthalmology in [place], [place] [address] [place] [phone] Rere Nair M.D., Ph.D. [address] [place] [phone] 08/01/2024 2:15 PM CDT Ancillary Procedure Department of Ophthalmology in [place], [place] [address] [place] [phone] Rere Nair M.D., Ph.D. [address] [place] [phone] 08/01/2024 2:45 PM CDT Ancillary Procedure Department of Ophthalmology in [place], [place] [address] [place] [phone] Rere Nair M.D., Ph.D. [address] [place] [phone] 08/01/2024 3:00 PM CDT Office Visit Department of Ophthalmology in [address] [phone] Rere Nair M.D., Ph.D. [address] [place] [phone] documented as of this encounter Visit Diagnoses Diagnosis Hemorrhage Vitreous Right (HCC)- Primary documented in this encounter
--- OUTSIDE RECORDS SUMMARY | 2024-07-29 13:21 | XMS_ITS | Encounter Summary ---
Author Organization [facility] Address [address] [place] [address] Care Team Providers Care Slubber Machine Operator Name Role Phone Unavailable Primary Care Provider Unavailabl e Encounter Details Date Type Department Care Team (Late Contact Info) Description 06/11/2024 Orders Only Department of Ophthalmology in [place], [place] [address] [place] [phone] Rere Nair M.D., Ph.D. [address] [place] [phone] Hemorrhage Vitreous Right (HCC) (Primary Dx) Social [...] CDT Ancillary Procedure Department of Ophthalmology in [place], [place] [address] [place] [phone] Rere Nair M.D., Ph.D. [address] [place] [phone] 08/01/2024 2:00 PM CDT Procedure visit Department of Ophthalmology in [place], [place] [address] [place] [phone] Rere Nair M.D., Ph.D. [address] [place] [phone] 08/01/2024 2:15 PM CDT Ancillary Procedure Department of Ophthalmology in [place], [place] [address] [place] [phone] Rere Nair M.D., Ph.D. [address] [place] [phone] 08/01/2024 2:45 PM CDT Ancillary Procedure Department of Ophthalmology in [address] [phone] Rere Nair M.D., Ph.D. [address] [place] [phone] 08/01/2024 3:00 PM CDT Office Visit Department of Ophthalmology in [address] [phone] Rere Nair M.D., Ph.D. [address] [place] [phone] documented as of this encounter Results * [...] Ph.D. OPH ULTR ASOUND Performing Organization Address [facility] Phone Number OPHTHALMOLGY NON-IMAGING ORDERS * Optical Coherence Tomography - Macula/Retina - OU - Both Eyes (06/24/2024 5:13 PM CDT) Narrative OPHTHALMOLOGY IMAGING EXAM - 06/24/2024 10:59 PM CDT Right Eye Reliability was good. OCT device used was Spectralis . Left Eye Reliability was good. OCT device used was Spectralis . Notes See patient's clinical encounter for interpretation. Rere Nair M.D., Ph.D. [facility] Performing Organization Address [facility] de Phone Number OPHTHALMOLOGY IMAGING EXAM * [...] Ph.D. OPH PHOT OGRAPHY Performing Organization Address [facility] de Phone Number OPHTHALMOLOGY IMAGING EXAM documented in this encounter Visit Diagnoses Diagnosis Hemorrhage Vitreous Right (HCC)- Primary Hemorrhage Vitreous Right (HCC) Hemorrhage Vitreous Right (HCC) Hemorrhage Vitreous Right (HCC) documented in this encounter
--- OUTSIDE RECORDS SUMMARY | 2024-07-29 13:21 | XMS_ITS | Encounter Summary ---
Author Organization [facility] Address [address] [place] [address] Care Team Providers Care Service Station Helper Name Role Phone Unavailable Primary Care Provider Unavailabl e Encounter Details Date Type Department Care Team (Latest Contact Info) Description 06/11/2024 Clinical Communication Department of Ophthalmology in [place], [place] [address] [place] [phone] Rere aNir M.D., Ph.D. [address] [place] [phone] Social History Tobacco Use Types Packs/Day Years [...] CDT Ancillary Procedure Department of Ophthalmology in [place], [place] [address] [place] [phone] Rere Nair M.D., Ph.D. [address] [place] [phone] 08/01/2024 2:00 PM CDT Procedure visit Department of Ophthalmology in [place], [place] [address] [place] [phone] Rere Nair M.D., Ph.D. [address] [place] [phone] 08/01/2024 2:15 PM CDT Ancillary Procedure Department of Ophthalmology in [place], [place] [address] [place] [phone] Rere Nair M.D., Ph.D. [address] [place] [phone] 08/01/2024 2:45 PM CDT Ancillary Procedure Department of Ophthalmology in [place], [place] [address] [place] [phone] Rere Nair M.D., Ph.D. [address] [place] [phone] 08/01/2024 3:00 PM CDT Office Visit Department of Ophthalmology in [place], [place] [address] [place] [phone] Rere Nair M.D., Ph.D. [address] [place] [phone] documented as of this encounter Visit Diagnoses Not on filedocumented in this encounter
--- OUTSIDE RECORDS SUMMARY | 2024-07-29 13:21 | XMS_ITS | Encounter Summary ---
Author Organization [facility] Address [address] [place] [address] Care Team Providers Care Dimmer Board Operator Name Role Phone Unavailable Primary Care Provider Unavailabl e Reason for Referral * Outpatient (Routine) - Closed Specialty Diagnoses / Procedures Referred By Zev garner Referred To Contact Anesthesiology Diagnoses Hemorrhage Vitreous Right (HCC) Rere Nair M.D., Ph.D. 200 [place] [phone] [facility] Referral ID Status Reason Start Date Expiration Date Visits Re quested Visits Authorized [id number] Closed 06/25/2024 12/25/2025 1 1 Reason for Visit * Appointment Request (Routine) - Closed Specialty Diagnoses / Procedures Referred By Zev garner Referred To Contact Ophthalmology Diagnoses Hemorrhage Vitreous Right (HCC) Bob Velasco M.D. [address] [address] Referral ID Status Reason Start Date Expiration Date Visits Re quested Visits Authorized [id number] Closed 06/10/2024 06/10/2025 1 1 Encounter Details Date Type Department Care Team (Latest Contact Info) Description 06/25/2024 11:00 AM CDT Comprehensive Visit Department of Ophthalmology in [place], [place] 200 [place] [phone] Rere Nair M.D., Ph.D. [address] [place] [address] Hemorrhage Vitreous Right (HCC) (Primary Dx) Social [...] were not included. Retina Clinic Progress Note, [facility] at [place], [place] Brief Ocular History Vitreous Hemorrhage RIGHT [...] including temporal macula Fluorescein angiography 06/25/2024 See [facility] ophthal[facility] module for exam information. Assessment Right [...] BID right eye Lens status: Phakic Language: Armenian Pre-op Work-up: JOSE DAVID NPO: 8hr prior to surgery start time Follow-up To OR then post-op appts (day 1, week 1, month 1) Rere Nair MD, PhD Credit Processor Electrician Refinery Vitreoretinal Surgery & Diseases [facility], Department of Ophthalmology [address] [place] [address] Letters to: Dr. Bob Velasco (Referring provider) documented in this encounter Miscellaneous Notes * Assessment & Plan Note - Jefry Ch M.D. - 06/20/2024 2:18 PM CDT Associated Problem(s): Hemorrhage Vitreous Right (HCC) Seen at [facility]. Has had 4 Vabysmo injections without clearance, last on 04/25/2024. documented in this encounter Plan of Treatment Upcoming Encounters Date Type Department Care Team (Late st Contact Info) Description 08/01/2024 1:30 PM CDT Ancillary Procedure Department of Ophthalmology in [address] [phone] Rere Nair M.D., Ph.D. [address] [place] [phone] 08/01/2024 2:00 PM CDT Procedure visit Department of Ophthalmology in [address] [phone] Rere Nair M.D., Ph.D. [address] [place] [phone] 08/01/2024 2:15 PM CDT Ancillary Procedure Department of Ophthalmology in [place], [place] [address] [place] [phone] Rere Nair M.D., Ph.D. [address] [place] [phone] 08/01/2024 2:45 PM CDT Ancillary Procedure Department of Ophthalmology in [place], [place] [address] [place] [phone] Rere Nair M.D., Ph.D. [address] [place] [phone] 08/01/2024 3:00 PM CDT Office Visit Department of Ophthalmology in [place], [place] [address] [place] [phone] Rere Nair M.D., Ph.D. [address] [place] [phone] Scheduled Referrals Name Type Priority Associated Diagnoses [...] Rere Nair M.D., Ph.D. LAB BLOOD ADD-ON [facility] [address] [place] [address], [facility] [address] [place] [address] documented in this encounter Visit Diagnoses Diagnosis Hemorrhage Vitreous Right (HCC)- Primary documented in this encounter
--- OUTSIDE RECORDS SUMMARY | 2024-07-29 13:21 | XMS_ITS | Encounter Summary ---
Author Organization [facility] Address [address] [place] [address] Care Team Providers Care Camera Assembler Name Role Phone Unavailable Primary Care Provider Unavailabl e Encounter Details Date Type Department Care Team (Latest Contact Info) Description 06/24/2024 2:00 PM CDT Procedure visit Department of Ophthalmology in [place], [place] [address] [place] [phone] Rere Nair M.D., Ph.D. [address] [place] [phone] Wilmer Tao, C.O.A. [address] [place] [phone] Hemorrhage Vitreous Right (HCC) Social History Tobacco [...] CDT Ancillary Procedure Department of Ophthalmology in [place], [place] [address] [place] [phone] Rere Nair M.D., Ph.D. [address] [place] [phone] 08/01/2024 2:00 PM CDT Procedure visit Department of Ophthalmology in [place], [place] [address] [place] [phone] Rere Nair M.D., Ph.D. [address] [place] [phone] 08/01/2024 2:15 PM CDT Ancillary Procedure Department of Ophthalmology in [place], [place] [address] [place] [phone] Rere Nair M.D., Ph.D. [address] [place] [phone] 08/01/2024 2:45 PM CDT Ancillary Procedure Department of Ophthalmology in [place], [place] [address] [place] [phone] Rere Nair M.D., Ph.D. [address] [place] [phone] 08/01/2024 3:00 PM CDT Office Visit Department of Ophthalmology in [place], [place] [address] [place] [address] Rere Nair M.D., Ph.D. [address] [place] [phone] documented as of this encounter Procedures Procedure [...]
--- OUTSIDE RECORDS SUMMARY | 2024-07-29 13:21 | XMS_ITS | Encounter Summary ---
Author Organization [facility] Address [address] [place] [address] Care Team Providers Care Assistant Portfolio Manager Name Role Phone Unavailable Primary Care Provider Unavailabl e Encounter Details Date Type Department Care Team (Latest Contact Info) Description 06/12/2024 Clinical Communication Department of Ophthalmology in [place], [place] [address] [place] [phone] Rere Nair M.D., Ph.D. [address] [place] [phone] Social History Tobacco Use Types Packs/Day Years [...] CDT Ancillary Procedure Department of Ophthalmology in [place], [place] [address] [place] [phone] Rere Nair M.D., Ph.D. [address] [place] [phone] 08/01/2024 2:00 PM CDT Procedure visit Department of Ophthalmology in [place], [place] [address] [place] [phone] Rere Nair M.D., Ph.D. [address] [place] [phone] 08/01/2024 2:15 PM CDT Ancillary Procedure Department of Ophthalmology in [place], [place] [address] [place] [phone] Rere Nair M.D., Ph.D. [address] [place] [phone] 08/01/2024 2:45 PM CDT Ancillary Procedure Department of Ophthalmology in [place], [place] [address] [place] [phone] Rere Nair M.D., Ph.D. [address] [place] [phone] 08/01/2024 3:00 PM CDT Office Visit Department of Ophthalmology in [place], [place] [address] [place] [phone] Rere Nair M.D., Ph.D. [address] [place] [phone] documented as of this encounter Visit Diagnoses Not on filedocumented in this encounter
--- OUTSIDE RECORDS SUMMARY | 2024-07-29 13:21 | XMS_ITS | Encounter Summary ---
Author Organization [facility] Address [address] [place] [address] Care Team Providers Care Newspaper Managing Editor Name Role Phone Elsewhere, Pcp Primary Care Provider Unavailabl e Encounter Details Date Type Department Care Team (Late st Contact Info) Description 06/09/2024 Clinical Communication Department of Ophthalmology in [place], [place] [address] [place] [phone] Melanie Adams O.D. [address] [place] [address] Social History Tobacco Use Types Packs/Day Years Used Date Smoking Tobacco: Never Assessed [facility] Utilities Answer Date Recorded In the [...] your living situation today? I have a [facility] place to live 07/04/2024 Sex [...] States that she was referred originally to [place] who sent her to [place] who then sent her to us and that she has been waiting for this appt over 1 mo. I did reiterate message and she is aware that [place] will be reaching out to her. I [...] to cancel the appt for tomorrow in [place]. The patient needs to be seen by a Retinal Specialist at [place]. I have contacted that office and they [...] has been scheduled with Dr. Adams in [place] on 06/11/24 at 10:30 am. Need to [...] CDT Ancillary Procedure Department of Ophthalmology in [place], [place] [address] [place] [phone] Rere Nair M.D., Ph.D. [address] [place] [phone] 08/01/2024 2:00 PM CDT Procedure visit Department of Ophthalmology in [place], [place] [address] [place] [phone] Rere Nair M.D., Ph.D. [address] [place] [phone] 08/01/2024 2:15 PM CDT Ancillary Procedure Department of Ophthalmology in [place], [place] [address] [place] [phone] Rere Nair M.D., Ph.D. [address] [place] [phone] 08/01/2024 2:45 PM CDT Ancillary Procedure Department of Ophthalmology in [address] [phone] Rere Nair M.D., Ph.D. [address] [place] [phone] 08/01/2024 3:00 PM CDT Office Visit Department of Ophthalmology in [address] [phone] Rere Nair M.D., Ph.D. [address] [place] [phone] documented as of this encounter Visit Diagnoses Not on filedocumented in this encounter Care Teams Newspaper Managing Editor Relationship Specialty Start Date End Date Elsewhere, Pcp PCP - General Internal Medicine 07/03/24 documented as of this encounter
--- NOTE | 2024-07-29 14:40 | CRLHL7_ITS ---
For Patients: As a result of the Century Cures Act, medical imaging exams and procedure reports are released immediately into your electronic medical record. You may view this report before your referring provider. If you have questions, please contact your health care provider. BILATERAL SCREENING MAMMOGRAM WITH COMPUTER-AIDED DETECTION AND TOMOSYNTHESIS TECHNIQUE: CC and MLO views were obtained. These mammographic images have been obtained using full-field digital technique. These mammographic images were interpreted with the benefit of computer-aided detection. Breast Tomosynthesis was used in this interpretation. COMPARISON FILM: 02/17/16, 02/22/18. FINDINGS: There are scattered areas of fibroglandular density IMPRESSION: There is no radiographic evidence for malignancy. ASSESSMENT: BI-RADS Category 1: Negative RECOMMENDATION: Routine screening mammogram in 1 year. A lay language report of this examination will be provided to the patient. Smith Rogel M.D. Diagnostic Radiologist [email or web address] JEFF/Dictated by: Smith Rogel MD @ 08/07/2024 11:13:00 AM (Electronically Signed)
== END 2024-07-29 13:18 | disposition home or self-care (01) ==
LOC: MAMMO 13:18
PROVIDERS: PCP Internal Medicine; Visit Provider Internal Medicine
DX: Z12.31 Encounter for screening mammogram for malignant neoplasm of breast (principal)
CPT/HCPCS: 77063; 77067; T1013